=== PATIENT | female | born 1940 | race Caucasian/White ===

== ENCOUNTER 2020-08-07 13:45 | Inpatient (IN) | payer MEDICARE, OTHER, SELFPAY ==
[2020-08-07] VITALS (13 sets, daily range): BP systolic 122–160; BP diastolic 70–88; PULSE 75–101; RESP 16–18; TEMP 36.4–37; O2SAT 90–98; BMI 21.7
--- NOTE | 2020-08-07 13:48 | XRR_ITS ---
PROCEDURE INFORMATION: Exam: XR Left Hip with Pelvis when Performed Exam date and time: 08/07/2020 1:50 PM Age: 79 years old Clinical indication: Injury or trauma; Fall; Blunt trauma (contusions or hematomas); Left; Patient HX: C/O L hip pain after tripping on step; Additional info: Fall/injury TECHNIQUE: Imaging protocol: XR Left hip with pelvis when performed. Views: 2 or 3 views. COMPARISON: No relevant prior studies available. FINDINGS: Bones/joints: There is a subcapital fracture involving the left hip. No acute additional abnormalities seen Soft tissues: Unremarkable. XR/XR hip LT 2-3V wo/w pel* [id number] IMPRESSION: 1. Subcapital fracture left hip 2. Otherwise negative examination
--- NOTE | 2020-08-07 13:49 | XRR_ITS ---
PROCEDURE INFORMATION: Exam: XR Chest, 1 View Exam date and time: 08/07/2020 1:50 PM Age: 79 years old Clinical indication: Injury or trauma; Blunt trauma (contusions or hematomas); Patient HX: Tripped on step falling onto L side; Additional info: Fall TECHNIQUE: Imaging protocol: XR of the chest Views: 1 view. COMPARISON: No relevant prior studies available. FINDINGS: Lungs: Unremarkable. No consolidation. Pleural space: Unremarkable. No pleural effusion. No pneumothorax. Heart/Mediastinum: Unremarkable. No cardiomegaly. Bones/joints: Unremarkable. XR/XR chest 1V portable [id number] IMPRESSION: No acute findings.
--- NOTE | 2020-08-07 13:49 | CTR_ITS ---
PROCEDURE INFORMATION: Exam: CT Head Without Contrast Exam date and time: 08/07/2020 1:59 PM Age: 79 years old Clinical indication: Injury or trauma; Fall; Blunt trauma (contusions or hematomas); Without loss of consciousness; Patient HX: Tripped on step - denies loc or injury to head; Additional info: Fall/injury TECHNIQUE: Imaging protocol: Computed tomography of the head without contrast. Radiation optimization: All CT scans at this facility use at least one of these dose optimization techniques: automated exposure control; mA and/or kV adjustment per patient size (includes targeted exams where dose is matched to clinical indication); or iterative reconstruction. COMPARISON: No relevant prior studies available. RADIATION DOSE METRICS: Total DLP (mGy-cm): 839.69 FINDINGS: Brain: There is no acute intracranial hemorrhage. There is minimal lucency in the cerebral white matter, likely microvascular disease although non-specific. Nielsen white differentiation is intact. There are no extra-axial fluid collections. No evidence of mass. There is no mass effect or midline shift. Cerebral ventricles: The ventricles and sulci are enlarged, consistent with volume loss / atrophy. No hydrocephalus. Bones/joints: No acute fracture. Paranasal sinuses: Visualized sinuses are unremarkable. No fluid levels. Mastoid air cells: No significant mastoid effusion. Orbital cavity: There have been bilateral intraocular lens replacements likely related to cataract surgery. Vasculature: There is vascular calcification. Soft tissues: Unremarkable as visualized. CT/CT head wo con* [id number] IMPRESSION: 1. No evidence of acute intracranial abnormality. No evidence of acute infarction, hemorrhage, or mass. 2. Changes of aging. Radiation Dose CTDIVOL = (mGy): DLP = 839.69 (mGy-cm)
--- NOTE | 2020-08-07 13:54 | ED_ITS ---
HPI - Fall General: Chief Complaint: Fall Stated Complaint: LEFT HIP PAIN S/P FALL Time Seen by Provider: 08/07/20 13:46 Source: patient and EMS Mode of arrival: EMS Limitations: no limitations History of Present Illness: HPI Narrative: Mrs. Richardson is a very nice 78-year-old female who was at home when she tripped and fell landing on her left hip. She did not hit her head and denies any head injury or loss of consciousness. She denies any neck pain or injury. She states all the pain and injury was sustained to the left hip. Patient has been unable to get up and walk and with any movement she has severe pain in her left hip. She denies any distal numbness or weakness to the leg. EMS reports good neurovascular exam on the way here. Patient denies any low back pain or pelvic pain. On the way here the patient became carsick but also received 100 of fentanyl and 4 of Zofran. Patient continues to plate of severe nausea. Patient denies being on any blood thinners but is on Plavix. Associated symptoms-after fall: Denies abdominal pain, chest pain, confusion, difficulty walking, headache(s), hematuria, lightheadedness, neck pain or vertigo Review of Systems Const: Denies: fever(s), chills, body aches, fatigue, malaise or diaphoresis Eyes: Denies: change in vision, blurry vision, photophobia, eye discomfort, eye discharge, eye redness or yellow eyes ENMT: Denies: throat pain, odynophagia, hoarseness, swelling of lips/tongue, ear or mastoid pain, ear discharge, change in hearing or nasal discharge Card: Denies: chest pain, palpitations, irregular heart rhythm, edema, lightheadedness, syncope, pre-syncope, dyspnea on exertion or orthopnea Resp: Denies: dyspnea, productive cough, non-productive cough, wheezing, hemoptysis or chest congestion GI: Reports: nausea; Denies: abdominal pain, vomiting, hematemesis, coffee ground emesis, heartburn, diarrhea, constipation, GI cramping, hematochezia or melena : Denies: flank pain, dysuria, urinary frequency, urinary urgency or hematuria Musc: Reports: extremity pain and joint pain; Denies: neck pain, back pain, extremity swelling, joint swelling, joint redness, joint warmth or joint stiffness Skin/Breast: Denies: rash, pruritus, erythema, skin pain or skin tenderness Neuro: Denies: headache(s), numbness in extremities, weakness in extremities, sensory changes, lack of coordination, difficulty walking, dizziness, vertigo, confusion, Slurred speech present or seizure-like activity Volodymyr/Lymph: Denies: easy bruising, easy bleeding, petechiae, purpura or enlarged lymph nodes All/Imm: Denies: urticaria, throat swelling, tongue swelling, facial swelling or acute wheezing PFSH ED PFSH: Medical History (Updated 08/07/20 @ 15:46 by Nina Cárdenas) Anxiety CAD (coronary artery disease) GERD (gastroesophageal reflux disease) History of NV (myocardial infarction) HTN (hypertension) Hyperlipidemia Hypothyroidism Ischemic cardiomyopathy Surgical History (Updated 08/07/20 @ 14:23 by Nina Cárdenas) S/P angioplasty with stent S/P appendectomy S/P hysterectomy Family History Other Cancer Hypertension Social History Smoking and tobacco status: former smoker Physical Exam Const: COMMON NORMALS: no acute distress, patient oriented x3, no limitations and alert GENERAL APPEARANCE: cooperative HENMT: COMMON NORMALS: normocephalic, atraumatic, external ears normal, EAC's normal and Normal external nose present HEAD & SCALP: normal to inspection, normocephalic and atraumatic FACE & SINUS: normal facial exam and face symmetric NOSE: Normal external nose present and Normal nares present EXTERNAL EAR: Yes external ears normal EXTERNAL AUDITORY CANAL: EAC's normal MOUTH: Normal oral and palatal mucosa present, lip normal and tongue normal Eye: COMMON NORMALS: Equal, round and reactive pupils present and conjunctivae normal GENERAL EYE: appearance normal, both eyes and all related structures ALIGNMENT: Yes alignment normal PERIORBITAL: periorbital findings normal EYELID: eyelids normal CONJUNCTIVA: Yes conjunctivae normal SCLERA: sclerae normal PUPIL: Yes Equal, round and reactive pupils present Neck/C-Spine: COMMON NORMALS: full ROM, no lymphadenopathy, supple, no meningeal signs and no JVD GENERAL: Yes normal visual inspection and Yes trachea midline Chest: COMMONS NORMALS: normal inspection of the chest and normal palpation of entire chest wall Resp: COMMON NORMALS: normal respiratory effort, No retractions, No use of accessory muscles and clear to auscultation bilaterally EFFORT & INSPECTION: Yes able to speak in complete sentences and Yes symmetric chest movement AUSCULTATION: clear to auscultation bilaterally, no crackles, no rales, no rhonchi and no wheezes Cardio: COMMON NORMALS: no JVD, regular rate, regular rhythm, S1 normal heart sound present and S2 normal heart sound present RATE: regular rate RHYTHM: regular rhythm HEART SOUNDS: S1 normal heart sound present, S2 normal heart sound present, no click, no gallops, no murmurs and no rubs GI: COMMON NORMALS: Soft to palpation and No hepatosplenomegaly present PALPATION: Yes Soft to palpation, No Tenderness to palpation present (GI), No Guarding due to palpation present (GI), No Rigid due to palpation, Yes No hepatosplenomegaly present, No Hernia present, No Palpable mass present and No Pulsatile mass present : COMMON NORMALS: Yes no CVA tenderness BLADDER/KIDNEY EXAM: Yes no CVA tenderness EXTERNAL FEMALE EXAM: No Hernia present Back/Pelvis: COMMON NORMALS: no CVA tenderness, thoracic and lumbar spine normal to inspection, no thoracic nor lumbar tenderness and thoraco-lumbar ROM normal Extremity: NARRATIVE EXTREMITY EXAM: Left hip with tenderness to palpation over the lateral aspect. Neurovascular intact distal. Neuro: COMMON NORMALS: patient oriented x3, CN's II-XII intact bilaterally, moves all extremities, no focal motor deficits and no sensory deficits noted SENSORIUM/ORIENTATION: Yes alert MENINGEAL SIGNS: Yes no meningeal signs SPEECH: speech normal Psych: COMMON NORMALS: mental status grossly normal, Normal thought process present, cooperative, normal affect, speech normal and activity/motor behavior normal SPEECH: Yes normal speech THOUGHT PROCESS: Normal thought process present Skin: COMMON NORMALS: no rashes or lesions noted, turgor normal, no jaundice, no petechiae and no mottling GENERAL SKIN EXAM: no rashes or lesions noted and turgor normal Course Vital Signs: Vital signs: Vital Signs Temperature 97.6 F 08/07/20 13:46 Pulse Rate 84 08/07/20 15:06 Respiratory Rate 18 08/07/20 15:06 Blood Pressure 134/87 08/07/20 15:06 Pulse Oximetry 98 08/07/20 15:06 MDM - Fall MDM Narrative: Medical decision making narrative: The case was reviewed with Dr. Oconnor and Dr. Anderson, they will admit and consult respectively. Patient be treated for UTI here. We will bear the hospital and further care be dictated by the inpatient team. Lab Data: Attestation: I reviewed the patient's lab results. Labs: Lab Results 08/07/20 08/07/20 08/07/20 Range/Units 14:27 14:35 14:35 WBC 18.2 H (4.0-10.0) 10^3/ uL RBC 4.15 (4.1-5.3) 10^6/u L Hgb 12.8 (11.5-15.3) g/dL Hct 39.9 (37.0-47.0) % MCV 96.1 (81-99) fL MCH 30.8 (28.0-34.0) pg MCHC 32.1 (30.0-36.0) g/dL RDW 12.5 (12.1-15.1) % Plt Count 221 (130-400) 10^3/c mm MPV 8.9 (7.4-10.4) fL Neut % (Auto) 64.9 % Lymph % (Auto) 30.9 % Briscoe % (Auto) 3.0 % Eos % (Auto) 0.3 % Baso % (Auto) 0.3 % Neut # (Auto) 11.81 H (1.8-7.7) 10^3/u L Lymph # (Auto) 5.6 H (0.8-4.8) 10^3/u L Briscoe # (Auto) 0.6 (0.2-0.9) 10^3/u L Eos # (Auto) 0.1 (0.0-0.8) 10^3/u L Baso # (Auto) 0.1 (0.0-0.1) 10^3/u L Nucleated RBC % (a uto) 0 % Nucleated RBCs # 0.0 /100WBC PT 12.80 (12.1-14.9) SECO NDS INR 0.93 (0.8-1.2) APTT 27.2 (23.9-36.7) SECO NDS Sodium (136-145) mmol/L Potassium (3.5-5.1) mmol/L Chloride (98-107) mmol/L Carbon Dioxide (22-29) mmol/L Anion Gap (5-19) BUN (8-23) mg/dL Creatinine (0.5-0.9) mg/dL GFR Calculation Glucose (65-115) mg/dL Calculated Osmolal ity (285-295) mOsm/k g Calcium (8.5-10.5) mg/dL Total Bilirubin (0.15-1.2) mg/dL AST (0-32) U/L ALT (0-33) U/L Alkaline Phosphata se (35-105) IU/L Total Protein (6.6-8.7) g/dL Albumin (3.5-5.2) g/dL Globulin (1.3-4.6) g/dL Urine Color Yellow (Yellow) Urine Appearance Hazy A (CLEAR) Urine pH 5 (5-7) Ur Specific Gravit y 1.025 (1.005-1.030) Urine Protein Neg (Negative) Urine Glucose (UA) Norm (Normal) Urine Ketones Negative (Negative) Urine Blood Neg (Negative) Urine Nitrate Negative (Negative) Urine Bilirubin 1+ H (Negative) Urine Urobilinogen Norm (Negative) mg/dL Ur Leukocyte Brandy ase Negative (Negative) Urine RBC 0-4 H (0-2) /hpf Urine WBC 15-25 H (0-5) /hpf Ur Squamous Epith Cells None (0-5) /hpf Amorphous Sediment Not Reportable Urine Bacteria 3+ H (NONE) /hpf SARS-CoV-2 Ag (Rap id) (Negative) 08/07/20 08/07/20 Range/Units 14:35 14:47 WBC (4.0-10.0) 10^3/ uL RBC (4.1-5.3) 10^6/u L Hgb (11.5-15.3) g/dL Hct (37.0-47.0) % MCV (81-99) fL MCH (28.0-34.0) pg MCHC (30.0-36.0) g/dL RDW (12.1-15.1) % Plt Count (130-400) 10^3/c mm MPV (7.4-10.4) fL Neut % (Auto) % Lymph % (Auto) % Briscoe % (Auto) % Eos % (Auto) % Baso % (Auto) % Neut # (Auto) (1.8-7.7) 10^3/u L Lymph # (Auto) (0.8-4.8) 10^3/u L Briscoe # (Auto) (0.2-0.9) 10^3/u L Eos # (Auto) (0.0-0.8) 10^3/u L Baso # (Auto) (0.0-0.1) 10^3/u L Nucleated RBC % (a uto) % Nucleated RBCs # /100WBC PT (12.1-14.9) SECO NDS INR (0.8-1.2) APTT (23.9-36.7) SECO NDS Sodium 138 (136-145) mmol/L Potassium 4.2 (3.5-5.1) mmol/L Chloride 101 (98-107) mmol/L Carbon Dioxide 28 (22-29) mmol/L Anion Gap 13.2 (5-19) BUN 20 (8-23) mg/dL Creatinine 1.1 H (0.5-0.9) mg/dL GFR Calculation Not Reportable Glucose 140 H (65-115) mg/dL Calculated Osmolal ity 291 (285-295) mOsm/k g Calcium 9.2 (8.5-10.5) mg/dL Total Bilirubin 0.3 (0.15-1.2) mg/dL AST 17 (0-32) U/L ALT 11 (0-33) U/L Alkaline Phosphata se 105 (35-105) IU/L Total Protein 6.8 (6.6-8.7) g/dL Albumin 4.3 (3.5-5.2) g/dL Globulin 2.5 (1.3-4.6) g/dL Urine Color (Yellow) Urine Appearance (CLEAR) Urine pH (5-7) Ur Specific Gravit y (1.005-1.030) Urine Protein (Negative) Urine Glucose (UA) (Normal) Urine Ketones (Negative) Urine Blood (Negative) Urine Nitrate (Negative) Urine Bilirubin (Negative) Urine Urobilinogen (Negative) mg/dL Ur Leukocyte Brandy ase (Negative) Urine RBC (0-2) /hpf Urine WBC (0-5) /hpf Ur Squamous Epith Cells (0-5) /hpf Amorphous Sediment Urine Bacteria (NONE) /hpf SARS-CoV-2 Ag (Rap id) Negative (Negative) Imaging Data^: XR Pelvis with Left Hip: Attestation: I personally reviewed and interpreted this imaging study as follows: My impression: Left femoral neck fracture CT Head: Radiologist's impression: [address] [place] [address] CT Scan Report Signed Patient: Nalini Richardson Unit #: [id number] : 1940 Acc t#:[id number] Age/Sex: 79 / F ADM Date: 08/07/20 Loc: ER Room/Bed: Attending Dr: Ordering Provider/Ordering MD: Nina Cárdenas DO Date of Service: 08/07/20 Procedure(s): CT head wo con* [id number] Accession Number(s): [id number] Report Number: [id number] PROCEDURE INFORMATION: Exam: CT Head Without Contrast Exam date and time: 08/07/2020 1:59 PM Age: 79 years old Clinical indication: Injury or trauma; Fall; Blunt trauma (contusions or hematomas); Without loss of consciousness; Patient HX: Tripped on step - denies loc or injury to head; Additional info: Fall/injury TECHNIQUE: Imaging protocol: Computed tomography of the head without contrast. Radiation optimization: All CT scans at this facility use at least one of these dose optimization techniques: automated exposure control; mA and/or kV adjustment per patient size (includes targeted exams where dose is matched to clinical indication); or iterative reconstruction. COMPARISON: No relevant prior studies available. RADIATION DOSE METRICS: Total DLP (mGy-cm): 839.69 FINDINGS: Brain: There is no acute intracranial hemorrhage. There is minimal lucency in the cerebral white matter, likely microvascular disease although non-specific. Nielsen white differentiation is intact. There are no extra-axial fluid collections. No evidence of mass. There is no mass effect or midline shift. Cerebral ventricles: The ventricles and sulci are enlarged, consistent with volume loss / atrophy. No hydrocephalus. Bones/joints: No acute fracture. Paranasal sinuses: Visualized sinuses are unremarkable. No fluid levels. Mastoid air cells: No significant mastoid effusion. Orbital cavity: There have been bilateral intraocular lens replacements likely related to cataract surgery. Vasculature: There is vascular calcification. Soft tissues: Unremarkable as visualized. CT/CT head wo con* [id number] IMPRESSION: 1. No evidence of acute intracranial abnormality. No evidence of acute infarction, hemorrhage, or mass. 2. Changes of aging. Radiation Dose CTDIVOL = (mGy): DLP = 839.69 (mGy-cm) Dictated By: Anita George MD Signed By: Anita George MD Signed Date/Time: 08/07/201444 DD/ 43 EKG Data^: EKG 1: Attestation: I personally reviewed and interpreted this EKG as follows: EKG interpretation date: 08/07/20 EKG interpretation time: 14:15 Interpretation: Normal sinus rhythm at 76 beats a minute, normal axis, no blocks, normal intervals, no acute ST-T wave changes. Discharge Plan Discharge Patient Disposition: Admitted As Inpatient Clinical Impression: Closed hip fracture, Acute UTI Condition: Stable Prescriptions: No Action dipyridamole 75 mg tablet 75 mg PO BID RF: 0 clopidogrel [Plavix] 75 mg tablet 75 mg PO DAILY RF: 0 nitroglycerin [Nitrostat] 0.4 mg tablet, sublingual 0.4 mg SUBLINGUAL Q5M PRN (Reason: Chest Pain) RF: 0 meclizine 25 mg tablet 25 mg PO DAILY PRN (Reason: Dizziness) RF: 0 alprazolam [Xanax] 0.5 mg tablet 0.5 mg PO QID PRN (Reason: Anxiety) RF: 0 amitriptyline 50 mg tablet 50 mg PO DAILY RF: 0 simvastatin 40 mg tablet 40 mg PO DAILY 90 Days Qty: 90 RF: 3 metoprolol tartrate 25 mg tablet See Rx Instructions PO .COMPLEX Qty: 135 RF: 3 Referrals: Lobo,KIP Lynch [Primary Care Provider] - Coding Level of Care Code ED Director Of Cardiology Service Line for Chg Fwd Exam Comprehensive
--- NOTE | 2020-08-07 13:57 | ECG_ITS ---
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 Measurements Intervals [place] Rate: 76 P: 81 [place]: 139 QRS: 75 QRSD: 65 T: 70 QT: 384 QTc: 432 Interpretive Statements SINUS RHYTHM LOW QRS VOLTAGE IN PRECORDIAL LEADS [QRS DEFLECTION < 1.0 mV IN CHEST LEADS] No previous ECG available for comparison Electronically Signed On 08-07-2020 16:08:44 CDT by Romeo Comer M.D. [id number]
[2020-08-07] MEDS: sodium chloride 0.9% 1,000 ML 100 ML IV (14:38)
[2020-08-07] MEDS: metoclopramide 5 mg/mL SDV 2 mL 10 MG IV (14:38)
[2020-08-07] MEDS: morphine 4 mg/mL SDV 1 mL IVP (14:55)
[2020-08-07 14:59] LABS: Basophils # 0.1 10^3/uL (0.0-0.1); Basophils % 0.3 %; Eosinophils # 0.1 10^3/uL (0.0-0.8); Eosinophils % 0.3 %; Hematocrit 39.9 % (37.0-47.0); Hemoglobin 12.8 g/dL (11.5-15.3); Lymphocytes # 5.6 10^3/uL (0.8-4.8); Lymphocytes % 30.9 %; Mean Corpuscular HGB Conc 32.1 g/dL (30.0-36.0); Mean Corpuscular Hemoglobin 30.8 pg (28.0-34.0); Mean Corpuscular Volume 96.1 fL (81-99); Mean Platelet Volume 8.9 fL (7.4-10.4); Monocytes # 0.6 10^3/uL (0.2-0.9); Neutrophils # 11.81 10^3/uL (1.8-7.7); Neutrophils % 64.9 %; Nucleated Red Blood Cells % 0 %; Platelet Count 221 10^3/cmm (130-400); Red Blood Count 4.15 10^6/uL (4.1-5.3); Red Cell Distribution Width 12.5 % (12.1-15.1); White Blood Count 18.2 10^3/uL (4.0-10.0)
[2020-08-07 15:00] LABS: Add Urine Microscopic? YES; Bilirubin Urine 1+ (Negative); Blood Urine Neg (Negative); Glucose Urine UA Norm (Normal); Ketones Urine Negative (Negative); Leukocyte Esterase Urine Negative (Negative); Nitrate Urine Negative (Negative); Protein Urine Neg (Negative); RBC Urine 0-4 /hpf (0-2); Specific Gravity, Urine 1.025 (1.005-1.030); Urine Appearance Hazy (CLEAR); Urine Color Yellow (Yellow); Urobilinogen Urine Norm (Negative); WBC Urine 15-25 /hpf (0-5); pH Urine 5 (5-7)
[2020-08-07 15:01] LABS: Add Urine Culture? Yes; Bacteria Urine 3+ /hpf
[2020-08-07 15:11] LABS: INR 0.93 (0.8-1.2)
[2020-08-07 15:12] LABS: Partial Thromboplastin Time 27.2 SECONDS (23.9-36.7)
[2020-08-07 15:18] LABS: Alanine Aminotransferase 11 U/L (0-33); Albumin Level 4.3 g/dL (3.5-5.2); Alkaline Phosphatase 105 IU/L (35-105); Anion Gap 13.2 (5-19); Aspartate Amino Transferase 17 U/L (0-32); Blood Urea Nitrogen 20 mg/dL (8-23); Calcium 9.2 mg/dL (8.5-10.5); Carbon Dioxide 28 mmol/L (22-29); Chloride 101 mmol/L (98-107); Globulin 2.5 g/dL (1.3-4.6); Glucose 140 mg/dL (65-115); Osmolality Calculated 291 mOsm/kg (285-295); Potassium 4.2 mmol/L (3.5-5.1); Sodium 138 mmol/L (136-145); Total Bilirubin 0.3 mg/dL (0.15-1.2); Total Protein 6.8 g/dL (6.6-8.7)
[2020-08-07] MEDS: cefTRIAXone 1,000 MG in sodium chloride 0.9% (plus) 50 ML 100 MG IV (15:22)
[2020-08-07 15:31] LABS: SARS Covid-2 Antigen Negative (Negative)
[2020-08-07 15:34] LABS: Slide Review Slide Review Perform
[2020-08-07] MEDS: HYDROmorphone 1 mg/mL INJ 1 mL 0.5 MG IVP (16:20)
--- NOTE | 2020-08-07 16:28 | PM.HP ---
Providers/Chief Complaint Primary Care Provider: Cris Lobo APN Chief Complaint: LEFT HIP PAIN S/P FALL History of Present Illness Nalini Richardson is a 79 year old female with past medical history of hypothyroidism, CAD post PCI to LAD in 2013, hypertension, ischemic cardiomyopathy with EF of 64% normal diastolic dysfunction moderate tricuspid regurgitation in 2015, with recent history of pneumonia in October since then she has been on nightly 2 L oxygen and daily nebulizations presented to the ER today after mechanical fall after she tripped in the stairs and was found to have subcapital fracture of left hip. Prior to the fall she denied having any dizziness, nausea, vomiting, palpitation, aura. She denies of having any chest pain, difficulty in breathing both at rest or exertion recently. Denies of having any fever, flulike symptoms, known exposure to COVID-19. Patient is fairly active at present. Her white count of 18.2, hemoglobin of 12.8, platelet count of 221, INR of 0.9, sodium of 138, potassium of 4.2, BUN of 20, creatinine of 1.1, AST/ALT of 17/11, UA negative for nitrite negative for leuk esterase with rapid Covid antigen negative with CT hip suggestive of subcapital fracture of left hip, CT head suggestive of age-related changes without evidence of acute intracranial abnormality and no acute findings on chest x-ray. Review of Systems General: Reports: 10 or more systems reviewed and unremarkable except in HPI and below Const: Denies: fever(s), chills, body aches, change in appetite, change in weight, malaise, night sweats, diaphoresis, change in sleep pattern, daytime sleepiness or snoring Eyes: Denies: change in vision, blurry vision, photophobia, eye discomfort or eye discharge ENMT: Denies: throat pain, enlarged tonsils, hoarseness, mouth pain, oral sores, dry mouth, tinnitus, nasal congestion or post nasal drip Card: Denies: chest pain, palpitations, irregular heart rhythm, edema, swelling of feet/ankles, lightheadedness, syncope, pre-syncope, dyspnea on exertion, orthopnea, leg pain with exertion or acrocyanosis Resp: Denies: dyspnea, productive cough, non-productive cough, wheezing, stridor, pain on inspiration, change in phlegm color, hemoptysis or chest congestion GI: Denies: abdominal pain, nausea, vomiting, hematemesis, coffee ground emesis, dysphagia, heartburn, diarrhea, constipation, bloating, GI cramping, change in bowel habits, pain on defecation, hematochezia or melena : Denies: flank pain, dysuria, urinary frequency, urinary urgency, urinary hesitancy, nocturia or hematuria Musc: Denies: neck pain, back pain, extremity pain, joint pain, joint swelling, joint redness, joint stiffness or limited range of motion Neuro: Denies: headache(s), numbness in extremities, weakness in extremities, sensory changes, lack of coordination, difficulty walking, frequent falls, dizziness, vertigo, confusion, Slurred speech present, difficulty communicating thoughts or seizure-like activity Psych: Denies: anxiety, depression, mood swings, panic attacks, hopelessness or irritability Endo: Denies: polyuria, polydipsia, tired all the time, cold intolerance, excessive sweating, flushing or heat intolerance Volodymyr/Lymph: Denies: easy bruising or easy bleeding All/Imm: Denies: tongue swelling, facial swelling or acute wheezing Medications/Allergies Home Medications Medication Instructions Recorded Confirmed Last Taken Type alprazolam 0.5 mg tablet 0.5 mg PO QID PRN tab 02/09/20 08/07/20 Unknown History amitriptyline 50 mg tablet 50 mg PO DAILY 02/09/20 08/07/20 08/06/20 History clopidogrel 75 mg tablet 75 mg PO DAILY 02/09/20 08/07/20 08/07/20 History dipyridamole 75 mg tablet 75 mg PO BID tab 02/09/20 08/07/20 08/07/20 History meclizine 25 mg tablet 25 mg PO DAILY PRN 02/09/20 08/07/20 08/07/20 History nitroglycerin 0.4 mg sublingual 0.4 mg SUBLINGUAL Q5M PRN 02/09/20 08/07/20 Unknown History tablet simvastatin 40 mg tablet 40 mg PO DAILY 90 Days #90 tab 03/30/20 08/07/20 08/06/20 Rx metoprolol tartrate 25 mg tablet See Rx Instructions PO .COMPLEX 04/28/20 08/07/20 08/07/20 Rx #135 tab Allergies Allergy/AdvReac Type Severity Reaction Status Date / Time aspirin Allergy Unknown Unknown Verified 08/07/20 13:53 lisinopril Allergy Unknown unknown Verified 08/07/20 13:53 PFSH Acute PFSH: Medical History Anxiety CAD (coronary artery disease) Post PCI to LAD in 2013 GERD (gastroesophageal reflux disease) History of [place] (myocardial infarction) HTN (hypertension) Hyperlipidemia Hypothyroidism Ischemic cardiomyopathy Echocardiogram from 2016 shows an EF of 64% without diastolic dysfunction, moderate TR Surgical History S/P angioplasty with stent S/P appendectomy S/P hysterectomy Family History Other Cancer Hypertension Social History (Reviewed 08/07/20 @ 17: by Conor Leyva MD) Smoking and tobacco status: former smoker Alcohol intake: never Substance/Drug Use: never Lives independently: Yes Housing: House Marital status: / Vitals/I&O/Wt Last Vital Signs Temp 97.6 F 08/07/20 13:46 Pulse 84 08/07/20 15:06 Resp 18 08/07/20 15:06 BP 134/87 08/07/20 15:06 Pulse Ox 98 08/07/20 15:06 08/07/20 08/07/20 08/07/20 06:59 14:59 22:59 Intake Total 50 / 50 Balance 50 / 50 Weight last 48 hrs Weight 61.235 kg Physical Exam Narrative: EXAM NARRATIVE: General: No acute distress, AO x3, slightly groggy from pain medications, frail HEENT: PERRLA, pupils bilaterally equal and reactive Chest: Normal vesicular breath sounds, no added sounds, equal good air entry bilaterally CVS: S1-S2 regular, no murmurs, no tachycardia, no gallops, no rubs Abdomen: Soft, nontender, no organomegaly, bowel sounds present Neuro: No focal deficits, no facial deformity, AO x3, 5 x 5 in both the upper arms, did not check the lower limbs because of pain Urinary Catheter Management^: Wright: Cath Placed During This Visit: yes Reason for Continuing Indwelling Catheter: Required Immobilization for Trauma or Surgery or Anesthesia Urinary Catheter Date of Insertion: 08/07/20 Urinary Catheter Time of Insertion: 15:05 Data : 08/07/20 14:35 08/07/20 14:35 A&P Assessment and plan (1) Closed hip fracture: Status: Acute Qualifiers: Encounter type: initial encounter Laterality: left Qualified Code(s): S72.002A - Fracture of unspecified part of neck of left femur, initial encounter for closed fracture (2) Hypothyroidism: Status: Acute (3) Anxiety: Status: Acute (4) CAD (coronary artery disease): Status: Acute (5) Ischemic cardiomyopathy: Status: Acute (6) HTN (hypertension): Status: Acute (7) RICH (acute kidney injury): Status: Acute Additional A&P Information Closed fracture: Secondary to mechanical fall. Dr. Anderson has been consulted from the ER. Physical therapy, anticoagulation, perioperative antibiotics as per Dr. Anderson. For now start patient on morphine 2 mg IV every 6 hours as needed along with [place] 5 every 6 hours as needed for pain. Patient was given ceftriaxone in the ER. Currently patient does not have any signs of infection other than mild leukocytosis which could be reactionary. Check procalcitonin, proBNP, blood cultures. UA negative for any infection. For now will monitor and if patient develops any fever will start her on antibiotics. Incentive spirometry, flutter valve. Bedrest for now. PT/OT evaluation post surgery. RICH: Baseline creatinine from labs in 2014 0.9. 1.1 today. Most likely secondary dehydration. Medical reconciliation done for nephrotoxic drugs. Gentle hydration for now and will continue to monitor BMP daily. CAD/post PCI to LAD in 2013: Severely allergic to aspirin. Patient takes Plavix and aspirin at all at home. We will hold off both for now in view of possible OR tomorrow. Check lipid panel. For now continue with home dose of statin and metoprolol. Hypertension: Goal blood pressure less than 140/90 mmHg. Continue with home dose of metoprolol. Ischemic cardiomyopathy: EF 64% from echocardiogram in 2016. We will repeat echocardiogram. Normal saline 50 cc/h. We will continue to monitor for fluid overload. Check vitamin D, TSH, iron panel, lipid panel, HbA1c, MRSA swab. Other chronic medication like amitriptyline, meclizine as needed. CODE STATUS: Discussed with patient and patient's son at bedside. Patient states she is a DNR/DNI. Did discuss with the patient that she will be intubated for the procedure and she is okay with that. Cardiac diet for now. N.p.o. after midnight for possible OR. Foot pumps for DVT prophylaxis. We will hold off on pharmacological prophylaxis right now in view of possible OR tomorrow. Attestations Medical Necessity Statement*: Patient will require admission for more than 2 midnights for subcapital fracture of hip post mechanical fall. Time Spent in Patient Care: Greater than 35 minutes (>than 50% of time spent in counselling and/or direct pt care on unit). Coding Level of Care Code Acute Home Appliance Technician for Lakesha Payned Diagnoses Closed hip fracture S72.002A Encounter type: initial encounter Laterality: left Hypothyroidism E03.9 Anxiety F41.9 CAD (coronary artery disease) I25.10 Ischemic cardiomyopathy I25.5 HTN (hypertension) I10 RICH (acute kidney injury) N17.9
[2020-08-07 17:10] LABS: NT Pro B Type Natriuretic Pept 50 pg/mL (0-450); Procalcitonin 0.05 ng/mL (0-0.5)
[2020-08-07] MEDS: sodium chloride 0.9% 1,000 ML 50 ML IV (17:11)
[2020-08-07 17:27] LABS: Iron 57 ug/dL (37-145); Percent Saturation 19.1 % (20-50); Total Iron Binding Capacity 297 mcg/dl; Unsaturated Iron Binding 240 ug/dL (112-347)
--- NOTE | 2020-08-07 17:27 | PC.PT ---
Physical therapy evaluation on hold awaiting surgical repair, and further orders at that time.
[2020-08-07] MEDS: metoprolol tartrate 25 mg Tablet PO (17:52)
[2020-08-07] MEDS: HYDROcodone-acetaminophen 5-325 mg Tablet 1 TAB PO (17:52)
[2020-08-07] MEDS: famotidine 20 mg/2 mL INJ IVP (17:53)
[2020-08-07] MEDS: ondansetron 2 mg/ML SDV 2 mL 4 MG IVP (17:53)
[2020-08-07] MEDS: pneumococcal (23 valent) SDV 0.5 mL IM (17:53)
[2020-08-07 19:06] LABS: 25 Hydroxy Vitamin D 16 ng/mL (30-100)
--- NOTE | 2020-08-07 21:28 | P.CONIM_ITS ---
Providers/Reason For Consult Consulting Physican/Specialty*: Marcelo Anderson MD, orthopedic surgery Reason for Consult*: Left femoral neck fracture Attending Physician: Conor Leyva MD Primary Care Provider: Cris Lobo APN History of Present Illness History of Present Illness Nalini Richardson is a 79 year old female who lives at home alone. She apparently missed a step as she was stepping out of her house falling landing on her left hip with immediate pain. She ultimately was able to call family and EMS was called. She was brought to our emergency room where radiographs revealed a displaced left femoral neck fracture. She denies any previous hip pain. She denies any other extremity pain. Meds/Allergies Home Medications and Allergies Home Medications Medication Instructions Recorded Confirmed Last Taken Type alprazolam 0.5 mg tablet 0.5 mg PO QID PRN tab 02/09/20 08/07/20 Unknown History amitriptyline 50 mg tablet 50 mg PO DAILY 02/09/20 08/07/20 08/06/20 History clopidogrel 75 mg tablet 75 mg PO DAILY 02/09/20 08/07/20 08/07/20 History dipyridamole 75 mg tablet 75 mg PO BID tab 02/09/20 08/07/20 08/07/20 History meclizine 25 mg tablet 25 mg PO DAILY PRN 02/09/20 08/07/20 08/07/20 History nitroglycerin 0.4 mg sublingual 0.4 mg SUBLINGUAL Q5M PRN 02/09/20 08/07/20 Unknown History tablet simvastatin 40 mg tablet 40 mg PO DAILY 90 Days #90 tab 03/30/20 08/07/20 08/06/20 Rx metoprolol tartrate 25 mg tablet See Rx Instructions PO .COMPLEX 04/28/20 08/07/20 08/07/20 Rx #135 tab Allergies Allergy/AdvReac Type Severity Reaction Status Date / Time aspirin Allergy Unknown Unknown Verified 08/07/20 13:53 lisinopril Allergy Unknown unknown Verified 08/07/20 13:53 Current Medications Current Medications Generic Name Dose Route Start Last Admin Trade Name Freq PRN Reason Stop Dose Admin Hydrocodone Bitart/Acetaminophen 1 tab 08/07/20 17:03 08/07/20 17:52 [place] 5-325 Mg PO 1 tab Q8H PRN Administration MODERATE TO SEVERE PAIN Famotidine 20 mg 10/17/20 18:00 08/07/20 17:53 Pepcid Inj IVP 20 mg Q12H MAUDE Administration Sodium Chloride 1,000 mls @ 50 mls/hr 08/07/20 17:03 08/07/20 17:11 Sodium Chloride 0.9% IV 50 mls/hr .Q20H MAUDE Administration Metoprolol Tartrate 25 mg 08/07/20 18:00 08/07/20 17:52 Lopressor PO 25 mg QPM MAUDE Administration Ondansetron HCl 4 mg 08/07/20 17:03 08/07/20 17:53 Zofran IVP 4 mg Q6H PRN Administration NAUSEA AND VOMITING PFSH Acute PFSH: Medical History Anxiety CAD (coronary artery disease) Post PCI to LAD in 2013 GERD (gastroesophageal reflux disease) History of [place] (myocardial infarction) HTN (hypertension) Hyperlipidemia Hypothyroidism Ischemic cardiomyopathy Echocardiogram from 2016 shows an EF of 64% without diastolic dysfunction, moderate TR Surgical History S/P angioplasty with stent S/P appendectomy S/P hysterectomy Family History Other Cancer Hypertension Social History Smoking and tobacco status: former smoker Alcohol intake: never Substance/Drug Use: never Lives independently: Yes Housing: House Marital status: / Vitals/I&O/Wt Last Vital Signs Temp 97.8 F 08/07/20 19:14 Pulse 99 08/07/20 20:02 Resp 16 08/07/20 19:58 BP 144/84 08/07/20 19:14 Pulse Ox 95 08/07/20 19:58 08/07/20 08/07/20 08/07/20 06:59 14:59 22:59 Intake Total 290 / 290 Balance 290 / 290 Weight last 48 hrs Weight 135 lb Physical Exam Narrative: EXAM NARRATIVE: The patient is a elderly female supine in bed. She answers questions appropriately. She seems to be a reliable historian. She has shortening and external rotation of the left hip. She has pain with any motion of the left hip. She has a palpable left dorsalis pedis pulse. She flexes and extends her ankles and toes on the left without motor deficits. She has no pain with palpation or motion of her upper extremities or right lower extremity. Urinary Catheter Management^: Wright: Cath Placed During This Visit: yes Reason for Continuing Indwelling Catheter: Required Immobilization for Trauma or Surgery or Anesthesia Urinary Catheter Date of Insertion: 08/07/20 Urinary Catheter Time of Insertion: 15:05 Data Imaging^: Xray Ortho: My impression: Radiographs are reviewed left hip showing a displaced left femoral neck fracture A&P Assessment and plan (1) Left displaced femoral neck fracture: I discussed options with the patient and family. I told them possible treatments for displaced femoral neck fracture would include nonoperative treatment, open reduction internal fixation, or hemiarthroplasty. I told them without treatment the patient would experience ongoing of pain that would limit mobility. This would require pain medications and place her at medical risks due to prolonged periods of bed rest. I discussed the possibility of open reduction internal fixation with pins. I warned them that for displaced fractures of the risk of nonunion and malunion is exceptionally high. In addition there is a high likelihood that the blood applied to the femoral head has been disrupted and that even with successful stabilization of the fracture the femoral head will go on to . I finally discussed the possibility of hemiarthroplasty. I think this would give the patient the greatest chance of being immediately mobilized. I discussed risk of a bleeding and a possible need for blood products. I discussed risk of deep venous thromboses and pulmonary emboli and the need for anticoagulation. I discussed the use of the TXA that may be utilized to diminish blood loss. I discussed risk of component failure and loosening that could require revision. I discussed the risk of dislocation and a bipolar arthroplasty which is quite unlikely. After a long discussion of options they agree to hemiarthroplasty of the hip. I told him ultimately the patient will likely require snf placement. She has a son that lives nearby but is not certain that he will be available to take care of her. We will proceed with a left bipolar hip arthroplasty on 08/09/2020 Status: Acute Coding Level of Care Code Acute Newspaper Distributor Supervisor for Lakesha Barry Diagnoses Left displaced femoral neck fracture S72.002A
[2020-08-07 22:48] LABS: Free T4 Free Thyroxine 1.07 ng/dL (0.82-1.77); T3 Free 3.2 PG/ML (2.0-4.4)
[2020-08-07] MEDS: morphine 4 mg/mL SDV 1 mL 2 MG IVP (23:09)
[2020-08-08] VITALS (13 sets, daily range): BP systolic 112–163; BP diastolic 69–98; PULSE 71–98; RESP 16–20; TEMP 36.6–37.5; O2SAT 89–94
[2020-08-08] MEDS: ipratropium-albuterol 3 mL Neb INHALATION ×5 (02:17→20:35)
[2020-08-08] MEDS: HYDROcodone-acetaminophen 5-325 mg Tablet 1 TAB PO ×2 (02:24→13:09)
[2020-08-08 05:56] LABS: Basophils % 0.2 %; Hematocrit 36.7 % (37.0-47.0); Hemoglobin 11.4 g/dL (11.5-15.3); Lymphocytes # 3.7 10^3/uL (0.8-4.8); Lymphocytes % 28.5 %; Mean Corpuscular HGB Conc 31.1 g/dL (30.0-36.0); Mean Corpuscular Hemoglobin 30.7 pg (28.0-34.0); Mean Corpuscular Volume 98.9 fL (81-99); Monocytes # 0.6 10^3/uL (0.2-0.9); Monocytes % 4.7 %; Neutrophils # 8.67 10^3/uL (1.8-7.7); Neutrophils % 66.3 %; Nucleated Red Blood Cells % 0 %; Platelet Count 190 10^3/cmm (130-400); Red Blood Count 3.71 10^6/uL (4.1-5.3); Red Cell Distribution Width 12.6 % (12.1-15.1); White Blood Count 13.1 10^3/uL (4.0-10.0)
[2020-08-08 06:19] LABS: INR 1.01 (0.8-1.2)
[2020-08-08 06:32] LABS: Alanine Aminotransferase 10 U/L (0-33); Albumin Level 3.8 g/dL (3.5-5.2); Alkaline Phosphatase 87 IU/L (35-105); Anion Gap 13.9 (5-19); Aspartate Amino Transferase 19 U/L (0-32); Blood Urea Nitrogen 20 mg/dL (8-23); Calcium 8.5 mg/dL (8.5-10.5); Carbon Dioxide 22 mmol/L (22-29); Chloride 102 mmol/L (98-107); Globulin 2.3 g/dL (1.3-4.6); Glucose 125 mg/dL (65-115); Osmolality Calculated 282 mOsm/kg (285-295); Potassium 3.9 mmol/L (3.5-5.1); Sodium 134 mmol/L (136-145); Total Bilirubin 0.4 mg/dL (0.15-1.2); Total Protein 6.1 g/dL (6.6-8.7)
[2020-08-08] MEDS: metoprolol tartrate 25 mg Tablet 12.5 MG PO (06:41)
[2020-08-08] MEDS: atorvastatin 40 mg Tablet 10 MG PO (09:32)
[2020-08-08] MEDS: ferrous sulfate EC 325 mg Tablet PO ×2 (09:33→17:06)
[2020-08-08] MEDS: levothyroxine 25 mcg Tablet PO (09:33)
[2020-08-08] MEDS: famotidine 20 mg/2 mL INJ IVP ×2 (09:34→19:28)
[2020-08-08] MEDS: ergocalciferol (vitamin D2) 50,000 Unit Capsule 50000 UNIT PO (13:09)
--- NOTE | 2020-08-08 16:08 | P.PN_ITS ---
Subjective Subjective: Interval history: No acute events overnight. Overnight pain has remained stable. On examination patient sitting comfortably in bed having her lunch. She is concerned that her surgery is scheduled for tomorrow she states she still having some pain. She denies of having any nausea, vomiting, headache. Has remained hemodynamically stable. Vitals/I&O/Wt Last Vital Signs Temp 98.3 F 08/08/20 12:00 Pulse 89 08/08/20 12:00 Resp 18 08/08/20 12:00 BP 112/69 08/08/20 12:00 Pulse Ox 89 L 08/08/20 09:57 08/08/20 08/08/20 08/08/20 06:59 14:59 22:59 Output Total 600 / 600 900 / 900 Balance -600 / -310 -900 / -900 Weight last 48 hrs Weight 66.224 kg Weight 61.235 kg Physical Exam Narrative: EXAM NARRATIVE: General: No acute distress, AO x3, slightly groggy from pain medications, frail HEENT: PERRLA, pupils bilaterally equal and reactive Chest: Normal vesicular breath sounds, no added sounds, equal good air entry bilaterally CVS: S1-S2 regular, no murmurs, no tachycardia, no gallops, no rubs Abdomen: Soft, nontender, no organomegaly, bowel sounds present Neuro: No focal deficits, no facial deformity, AO x3, 5 x 5 in both the upper arms, did not check the lower limbs because of pain Urinary Catheter Management^: Wright: Cath Placed During This Visit: yes Reason for Continuing Indwelling Catheter: Perioperative Use in Selected Surgeries Urinary Catheter Date of Insertion: 08/07/20 Urinary Catheter Time of Insertion: 15:05 Data : 08/08/20 04:29 08/08/20 04:29 Micro: Microbiology 08/07/20 17:45 MRSA Culture - Final Nose 08/07/20 14:27 Urine Culture - Preliminary Urine,Clean Catch Gram Negative Rods 08/07/20 22:05 Blood Culture - Preliminary Blood SPECIMEN COLLECTED 08/07/20 22:00 Blood Culture - Preliminary Blood SPECIMEN COLLECTED A&P Assessment and plan (1) Closed hip fracture: Status: Deleted Qualifiers: Encounter type: initial encounter Laterality: left Qualified Code(s): S72.002A - Fracture of unspecified part of neck of left femur, initial encounter for closed fracture (2) Hypothyroidism: Status: Acute (3) Anxiety: Status: Acute (4) CAD (coronary artery disease): Status: Acute (5) Ischemic cardiomyopathy: Status: Acute (6) HTN (hypertension): Status: Acute (7) RICH (acute kidney injury): Status: Acute Additional A&P Information Closed subcapital fracture of left hip: Secondary to mechanical fall. Plan for OR on August 09. N.p.o. after midnight. Physical therapy, anticoagulation, perioperative antibiotics as per Dr. Anderson. For now start patient on morphine 2 mg IV every 6 hours as needed along with [place] 5 every 6 hours as needed for pain. Patient was given ceftriaxone in the ER. Currently patient does not have any signs of infection other than mild leukocytosis which could be reactionary. Patient has not had any fever. Procalcitonin negative. UA negative for any infection. For now will monitor and if patient develops any fever will start her on antibiotics. Incentive spirometry, flutter valve. Bedrest for now. PT/OT evaluation post surgery. RICH: Resolved. Baseline creatinine from labs in 2014 0.9. Most likely secondary dehydration. Medical reconciliation done for nephrotoxic drugs. Gentle hydration for now and will continue to monitor BMP daily. CAD/post PCI to LAD in 2013: Severely allergic to aspirin. Patient takes Plavix and dipyrimadol at all at home. We will hold off both for now in view of possible OR tomorrow. Check lipid panel. For now continue with home dose of statin and metoprolol. Hypertension: Goal blood pressure less than 140/90 mmHg. Continue with home dose of metoprolol. Ischemic cardiomyopathy: EF 64% from echocardiogram in 2015. We will repeat echocardiogram. Vitamin D levels no so we will start her on vitamin D 50,000 units monthly. Started on iron supplementation orally. TSH high at more than 10 with normal free T3-T4. Given the history of cardiac disease we will start her on levothyroxine 25 mcg daily for now. Patient will need to repeat thyroid panel in 1 month. Other chronic medication like amitriptyline, meclizine as needed. CODE STATUS: Discussed with patient and patient's son at bedside. Patient states she is a DNR/DNI. Did discuss with the patient that she will be intubated for the procedure and she is okay with that. Cardiac diet for now. N.p.o. after midnight for possible OR. Foot pumps for DVT prophylaxis. We will hold off on pharmacological prophylaxis right now in view of possible OR tomorrow. Attestations Medical Necessity Statement*: Patient needs further hospitalization for manag ement of hip fracture. Time Spent in Patient Care: Greater than 35 minutes (>than 50% of time spent in counselling and/or direct pt care on unit) . Coding Level of Care Code Acute Forging Press Setter Up for Lakesha Payned Diagnoses Closed hip fracture S72.002A Encounter type: initial encounter Laterality: left Hypothyroidism E03.9 Anxiety F41.9 CAD (coronary artery disease) I25.10 Ischemic cardiomyopathy I25.5 HTN (hypertension) I10 RICH (acute kidney injury) N17.9
[2020-08-08] MEDS: metoprolol tartrate 25 mg Tablet PO (17:06)
[2020-08-08] MEDS: morphine 4 mg/mL SDV 1 mL 2 MG IVP ×2 (17:13→22:21)
--- NOTE | 2020-08-08 22:57 | PC.NURSE ---
SANDERS UPON ENTERING PATIENTS ROOM, PT WAS PULLING AT IV AND NURSE OBSERVED THAT PT SANDERS WAS REMOVED, LYING IN BED. NO TRAUMA NOTED.
[2020-08-09] VITALS (21 sets, daily range): BP systolic 96–157; BP diastolic 55–96; PULSE 80–116; RESP 16–30; TEMP 36.6–37.6; O2SAT 90–98; BMI 23.6
[2020-08-09] MEDS: ipratropium-albuterol 3 mL Neb INHALATION ×3 (02:31→20:04)
--- NOTE | 2020-08-09 02:42 | PC.NURSE ---
THIS NURSE INSERTED A 14 FR SANDERS CATHETER. 200ML OF URINE WAS RETURNED. PT TOLERATED PROCEDURE FAIR.
[2020-08-09 05:47] LABS: Basophils % 0.2 %; Eosinophils % 0.1 %; Hematocrit 38.2 % (37.0-47.0); Hemoglobin 12.3 g/dL (11.5-15.3); Lymphocytes # 3.4 10^3/uL (0.8-4.8); Lymphocytes % 24.5 %; Mean Corpuscular HGB Conc 32.2 g/dL (30.0-36.0); Mean Corpuscular Hemoglobin 30.7 pg (28.0-34.0); Mean Corpuscular Volume 95.3 fL (81-99); Mean Platelet Volume 8.6 fL (7.4-10.4); Monocytes # 0.7 10^3/uL (0.2-0.9); Neutrophils # 9.66 10^3/uL (1.8-7.7); Neutrophils % 69.8 %; Nucleated Red Blood Cells % 0 %; Platelet Count 176 10^3/cmm (130-400); Red Blood Count 4.01 10^6/uL (4.1-5.3); Red Cell Distribution Width 12.4 % (12.1-15.1); White Blood Count 13.9 10^3/uL (4.0-10.0)
[2020-08-09] MEDS: metoprolol tartrate 25 mg Tablet 12.5 MG PO (06:11)
[2020-08-09 06:13] LABS: Alanine Aminotransferase 10 U/L (0-33); Albumin Level 3.6 g/dL (3.5-5.2); Alkaline Phosphatase 86 IU/L (35-105); Anion Gap 16.4 (5-19); Aspartate Amino Transferase 23 U/L (0-32); Blood Urea Nitrogen 15 mg/dL (8-23); Calcium 8.8 mg/dL (8.5-10.5); Carbon Dioxide 20 mmol/L (22-29); Chloride 101 mmol/L (98-107); Chol HDL Ratio 2.29 mg/dL (0.0-4.40); Cholesterol 135 mg/dL (0-200); Globulin 2.7 g/dL (1.3-4.6); Glucose 113 mg/dL (65-115); HDL Cholesterol 59 mg/dL (60-100); LDL Cholesterol Calculated 63 mg/dL (50-129); Osmolality Calculated 280 mOsm/kg (285-295); Potassium 3.4 mmol/L (3.5-5.1); Sodium 134 mmol/L (136-145); Total Bilirubin 0.6 mg/dL (0.15-1.2); Total Protein 6.3 g/dL (6.6-8.7); Triglycerides 64 mg/dL (0-150); VLDL Cholestrol Calculation 13 mg/dL (0-30)
[2020-08-09 06:25] LABS: Estmated Average Glucose 111; Hemoglobin A1C 5.5 % (4.0-6.0)
[2020-08-09] MEDS: atorvastatin 40 mg Tablet 10 MG PO (09:15)
[2020-08-09] MEDS: levothyroxine 25 mcg Tablet PO (09:16)
[2020-08-09] MEDS: ferrous sulfate EC 325 mg Tablet PO ×2 (09:16→17:27)
[2020-08-09] MEDS: famotidine 20 mg/2 mL INJ IVP ×2 (09:19→20:12)
[2020-08-09] MEDS: HYDROcodone-acetaminophen 5-325 mg Tablet 1 TAB PO ×2 (09:23→16:21)
--- NOTE | 2020-08-09 09:58 | PC.CHAP ---
Pastoral Care Encounter/Spiritual Assessment Type of Contact [] Declined filter tank tender helper visit [] Patient/Family/Request visit [] Outpatient visit [] Follow-up visit [] Physician referral [] Code/Alert [x] Routine visit [] Staff referral [] Actively dying [] Patient sleeping [] Family support [] [] Out of room [] Palliative care [] [] Receiving care in room [] Pre-surgical visit [] Trauma [] Long length of stay [] ICU visit [] Other: Relational/Emotional Strength [] Patient feels connected with others/family/visitors/staff [] Distress [] Loneliness/isolation [] Abandonment Spirituality of Patient [] Person of Capri [] Attends Denominational of their Capri [] Believes in Prayer [] Reads Bible or Mormonism materials [] There are Spiritual issues to be addressed Jewel Hole Cornerer Interventions [x] Prayer [x] Active listening [x] Non-anxious presence [x] Spiritual/emotional support [] Crisis/trauma care [] Spiritual counseling [] Bereavement support [] Provided bereavement packet [] Provided Bible/devotional materials [] Provided toy/stuffed animal, coloring book to patient or family member [] Provided Communion [] Anointing/[place] [] Salvation [x] Completed spiritual assessment [] Other: Impact on Illness or Injury [] Angry [] Fearful [] Anxious [] Often cries [] Exhaustion [] Unable to work [] Unable to attend zoroastrian [] Unable to walk/stand [] Unable to read [] Unable to drive [] Unable to eat/drink [] Unable to sleep [] Unable to be with family [] Patient intubated [] Other: Summary Patient having surgery today... possible new hip delightful lady.... Time spent with patient 15 min
[2020-08-09] MEDS: sodium chloride 0.9% 1,000 ML 30 ML IV (10:06)
--- NOTE | 2020-08-09 10:27 | ANES.PREANE2 ---
Pre-Anesthetic Assessment Pre-Anesthetic Assessment: Height/Weight: Height 1.68 m Weight 66.224 kg Temp Pulse Resp BP Pulse Ox 99.2 F 113 H 20 H 145/82 93 08/09/20 09:59 08/09/20 09:59 08/09/20 09:59 08/09/20 09:59 08/09/20 09:59 Preop Diagnosis: Left femoral neck fracture Proposed Procedure: Operation Date: 08/09/20 12:45 Proposed Procedures p Hemiarthroplasty Hip Bipolar(Left) - Marcelo Anderson MD Familial anesthetic complications: None Was Beta Susanna taken within 24 hours: N/A Last intake: Intake NPO > 8 hrs Last Liquid Date 08/08/20 Last Liquid Time 22:00 Last Solid Date 08/08/20 Last Solid Time 18:00 Social: Social History: No alcohol and No tobacco Exam: Pre-Anes Outpt Exam: alert, oriented x 3, clear to auscultation bilaterally and regular rate & rhythm Airway: Cervical ROM: WNL MP: 2 Dentition: Partials Pulmonary: Comments: October pneumonia on 2 L cannula and nebulizers since CV/HEM: CV/HEM: HTN and AR Comments: ischemic cardiomyopathy - EF 64% on moderate Tricuspid 2016 GI: GI: GERD Metabolic: Metabolic: Thyroid Anesthetic Plan: ASA status: 3 Anesthesia: General Risk of > 500 ml blood loss (7ml/kg in children): No Meds/Allergies Current Medications: Current Medications Generic Name Dose Route Start Last Admin Trade Name Freq PRN Reason Stop Dose Admin Hydrocodone Bitart /Acetaminophen 1 tab 08/07/20 17:03 08/09/20 09:23 [place] 5-325 Mg PO 1 tab Q8H PRN Administration MODERATE TO SEVER E PAIN Albuterol/Ipratrop ium 3 ml 08/07/20 21:00 08/09/20 08:15 Duoneb INHALATION 3 ml Q6H.RESPIRATORY S CH Administration Amitriptyline HCl 50 mg 08/08/20 09:00 08/09/20 09:16 Elavil PO 50 mg DAILY MAUDE Administration Atorvastatin Calci um 10 mg 08/08/20 09:00 08/09/20 09:15 Lipitor PO 10 mg DAILY MAUDE Administration Ergocalciferol 50,000 unit 08/08/20 12:30 08/08/20 13:09 Vitamin D2 PO 50,000 unit Q30D MAUDE Administration Famotidine 20 mg 08/07/20 18:00 08/09/20 09:19 Pepcid Inj IVP 20 mg Q12H MAUDE Administration Ferrous Sulfate 325 mg 08/08/20 08:00 08/09/20 09:16 Ferrous Sulfate PO 325 mg BIDWM MAUDE Administration Sodium Chloride 1,000 mls @ 30 ml s/hr 08/09/20 09:45 08/09/20 10:06 Sodium Chloride 0.9% IV 08/10/20 09:44 30 mls/hr .Q24H MAUDE Administration Levothyroxine Sodi um 25 mcg 08/08/20 09:00 08/09/20 09:16 Synthroid PO 25 mcg DAILY MAUDE Administration Metoprolol Tartrat e 25 mg 08/07/20 18:00 08/08/20 17:06 Lopressor PO 25 mg QPM MAUDE Administration Metoprolol Tartrat e 12.5 mg 08/08/20 06:00 08/09/20 06:11 Lopressor PO 12.5 mg QAM MAUDE Administration Morphine Sulfate 2 mg 08/07/20 17:03 08/08/20 22:21 Morphine IVP 2 mg Q4H PRN Administration SEVERE PAIN Ondansetron HCl 4 mg 08/07/20 17:03 08/07/20 17:53 Zofran IVP 4 mg Q6H PRN Administration NAUSEA AND VOMITI NG PFSH Anesthesia PFSH: Medical History Anxiety CAD (coronary artery disease) Post PCI to LAD in 2013 GERD (gastroesophageal reflux disease) History of AR (myocardial infarction) HTN (hypertension) Hyperlipidemia Hypothyroidism Ischemic cardiomyopathy Echocardiogram from 2016 shows an EF of 64% without diastolic dysfunction, moderate TR Surgical History S/P angioplasty with stent S/P appendectomy S/P hysterectomy Family History Other Cancer Hypertension Social History Smoking and tobacco status: former smoker Alcohol intake: never Substance/Drug Use: never Lives independently: Yes Housing: House Marital status: / Data Anesthesia CBC & Chem 7: 08/09/20 05:18 08/09/20 05:18 Other Labs: Laboratory Results - last 48 hr 08/07/20 08/07/20 08/07/20 14:27 14:35 14:35 WBC 18.2 H RBC 4.15 Hgb 12.8 Hct 39.9 MCV 96.1 MCH 30.8 MCHC 32.1 RDW 12.5 Plt Count 221 MPV 8.9 Neut % (Auto) 64.9 Lymph % (Auto) 30.9 [place] % (Auto) 3.0 Eos % (Auto) 0.3 Baso % (Auto) 0.3 Neut # (Auto) 11.81 H Lymph # (Auto) 5.6 H [place] # (Auto) 0.6 Eos # (Auto) 0.1 Baso # (Auto) 0.1 Nucleated RBC % (auto) 0 Nucleated RBCs # 0.0 PT 12.80 INR 0.93 APTT 27.2 Sodium Potassium Chloride Carbon Dioxide Anion Gap BUN Creatinine GFR Calculation Glucose Estimat Average Glucose Hemoglobin A1c Calculated Osmolality Calcium Iron TIBC % Saturation Unsat Iron Binding Total Bilirubin AST ALT Alkaline Phosphatase NT-Pro-B Natriuret Pep Total Protein Albumin Globulin Triglycerides Cholesterol LDL Cholesterol, Calc Total VLDL Cholesterol HDL Cholesterol Cholesterol/HDL Ratio 25-OH Vitamin D Total Procalcitonin TSH Free T4 Free T3 Urine Color Yellow Urine Appearance Hazy A Urine pH 5 Ur Specific [place] 1.025 Urine Protein Neg Urine Glucose (UA) Norm Urine Ketones Negative Urine Blood Neg Urine Nitrate Negative Urine Bilirubin 1+ H Urine Urobilinogen Norm Ur Leukocyte Esterase Negative Urine RBC 0-4 H Urine WBC 15-25 H Ur Squamous Epith Cells None Amorphous Sediment Not Reportable Urine Bacteria 3+ H SARS-CoV-2 Ag (Rapid) 08/07/20 08/07/20 08/07/20 14:35 14:35 14:35 WBC RBC Hgb Hct MCV MCH MCHC RDW Plt Count MPV Neut % (Auto) Lymph % (Auto) [place] % (Auto) Eos % (Auto) Baso % (Auto) Neut # (Auto) Lymph # (Auto) [place] # (Auto) Eos # (Auto) Baso # (Auto) Nucleated RBC % (auto) Nucleated RBCs # PT INR APTT Sodium 138 Potassium 4.2 Chloride 101 Carbon Dioxide 28 Anion Gap 13.2 BUN 20 Creatinine 1.1 H GFR Calculation Not Reportable Glucose 140 H Estimat Average Glucose Hemoglobin A1c Calculated Osmolality 291 Calcium 9.2 Iron 57 TIBC 297 % Saturation 19.1 L Unsat Iron Binding 240 Total Bilirubin 0.3 AST 17 ALT 11 Alkaline Phosphatase 105 NT-Pro-B Natriuret Pep 50 Total Protein 6.8 Albumin 4.3 Globulin 2.5 Triglycerides Cholesterol LDL Cholesterol, Calc Total VLDL Cholesterol HDL Cholesterol Cholesterol/HDL Ratio 25-OH Vitamin D Total Procalcitonin 0.05 TSH Free T4 Free T3 Urine Color Urine Appearance Urine pH Ur Specific [place] Urine Protein Urine Glucose (UA) Urine Ketones Urine Blood Urine Nitrate Urine Bilirubin Urine Urobilinogen Ur Leukocyte Esterase Urine RBC Urine WBC Ur Squamous Epith Cells Amorphous Sediment Urine Bacteria SARS-CoV-2 Ag (Rapid) 08/07/20 08/07/20 08/07/20 14:35 14:35 14:47 WBC RBC Hgb Hct MCV MCH MCHC RDW Plt Count MPV Neut % (Auto) Lymph % (Auto) [place] % (Auto) Eos % (Auto) Baso % (Auto) Neut # (Auto) Lymph # (Auto) [place] # (Auto) Eos # (Auto) Baso # (Auto) Nucleated RBC % (auto) Nucleated RBCs # PT INR APTT Sodium Potassium Chloride Carbon Dioxide Anion Gap BUN Creatinine GFR Calculation Glucose Estimat Average Glucose Hemoglobin A1c Calculated Osmolality Calcium Iron TIBC % Saturation Unsat Iron Binding Total Bilirubin AST ALT Alkaline Phosphatase NT-Pro-B Natriuret Pep Total Protein Albumin Globulin Triglycerides Cholesterol LDL Cholesterol, Calc Total VLDL Cholesterol HDL Cholesterol Cholesterol/HDL Ratio 25-OH Vitamin D Total 16 L Procalcitonin TSH 10.60 H Free T4 1.07 Free T3 3.2 Urine Color Urine Appearance Urine pH Ur Specific [place] Urine Protein Urine Glucose (UA) Urine Ketones Urine Blood Urine Nitrate Urine Bilirubin Urine Urobilinogen Ur Leukocyte Esterase Urine RBC Urine WBC Ur Squamous Epith Cells Amorphous Sediment Urine Bacteria SARS-CoV-2 Ag (Rapid) Negative 08/08/20 08/08/20 08/08/20 04:29 04:29 04:29 WBC 13.1 H RBC 3.71 L Hgb 11.4 L Hct 36.7 L MCV 98.9 MCH 30.7 MCHC 31.1 RDW 12.6 Plt Count 190 MPV 9.0 Neut % (Auto) 66.3 Lymph % (Auto) 28.5 [place] % (Auto) 4.7 Eos % (Auto) 0.0 Baso % (Auto) 0.2 Neut # (Auto) 8.67 H Lymph # (Auto) 3.7 [place] # (Auto) 0.6 Eos # (Auto) 0.0 Baso # (Auto) 0.0 Nucleated RBC % (auto) 0 Nucleated RBCs # 0.0 PT 13.60 INR 1.01 APTT Sodium 134 L Potassium 3.9 Chloride 102 Carbon Dioxide 22 Anion Gap 13.9 BUN 20 Creatinine 0.8 GFR Calculation Not Reportable Glucose 125 H Estimat Average Glucose Hemoglobin A1c Calculated Osmolality 282 L Calcium 8.5 Iron TIBC % Saturation Unsat Iron Binding Total Bilirubin 0.4 AST 19 ALT 10 Alkaline Phosphatase 87 NT-Pro-B Natriuret Pep Total Protein 6.1 L Albumin 3.8 Globulin 2.3 Triglycerides Cholesterol LDL Cholesterol, Calc Total VLDL Cholesterol HDL Cholesterol Cholesterol/HDL Ratio 25-OH Vitamin D Total Procalcitonin TSH Free T4 Free T3 Urine Color Urine Appearance Urine pH Ur Specific [place] Urine Protein Urine Glucose (UA) Urine Ketones Urine Blood Urine Nitrate Urine Bilirubin Urine Urobilinogen Ur Leukocyte Esterase Urine RBC Urine WBC Ur Squamous Epith Cells Amorphous Sediment Urine Bacteria SARS-CoV-2 Ag (Rapid) 08/09/20 08/09/20 08/09/20 05:18 05:18 05:18 WBC 13.9 H RBC 4.01 L Hgb 12.3 Hct 38.2 MCV 95.3 MCH 30.7 MCHC 32.2 RDW 12.4 Plt Count 176 MPV 8.6 Neut % (Auto) 69.8 Lymph % (Auto) 24.5 [place] % (Auto) 5.0 Eos % (Auto) 0.1 Baso % (Auto) 0.2 Neut # (Auto) 9.66 H Lymph # (Auto) 3.4 [place] # (Auto) 0.7 Eos # (Auto) 0.0 Baso # (Auto) 0.0 Nucleated RBC % (auto) 0 Nucleated RBCs # 0.0 PT INR APTT Sodium 134 L Potassium 3.4 L Chloride 101 Carbon Dioxide 20 L Anion Gap 16.4 BUN 15 Creatinine 0.9 GFR Calculation Not Reportable Glucose 113 Estimat Average Glucose 111 Hemoglobin A1c 5.5 Calculated Osmolality 280 L Calcium 8.8 Iron TIBC % Saturation Unsat Iron Binding Total Bilirubin 0.6 AST 23 ALT 10 Alkaline Phosphatase 86 NT-Pro-B Natriuret Pep Total Protein 6.3 L Albumin 3.6 Globulin 2.7 Triglycerides Cholesterol LDL Cholesterol, Calc Total VLDL Cholesterol HDL Cholesterol Cholesterol/HDL Ratio 25-OH Vitamin D Total Procalcitonin TSH Free T4 Free T3 Urine Color Urine Appearance Urine pH Ur Specific [place] Urine Protein Urine Glucose (UA) Urine Ketones Urine Blood Urine Nitrate Urine Bilirubin Urine Urobilinogen Ur Leukocyte Esterase Urine RBC Urine WBC Ur Squamous Epith Cells Amorphous Sediment Urine Bacteria SARS-CoV-2 Ag (Rapid) 08/09/20 05:18 WBC RBC Hgb Hct MCV MCH MCHC RDW Plt Count MPV Neut % (Auto) Lymph % (Auto) [place] % (Auto) Eos % (Auto) Baso % (Auto) Neut # (Auto) Lymph # (Auto) [place] # (Auto) Eos # (Auto) Baso # (Auto) Nucleated RBC % (auto) Nucleated RBCs # PT INR APTT Sodium Potassium Chloride Carbon Dioxide Anion Gap BUN Creatinine GFR Calculation Glucose Estimat Average Glucose Hemoglobin A1c Calculated Osmolality Calcium Iron TIBC % Saturation Unsat Iron Binding Total Bilirubin AST ALT Alkaline Phosphatase NT-Pro-B Natriuret Pep Total Protein Albumin Globulin Triglycerides 64 Cholesterol 135 LDL Cholesterol, Calc 63 Total VLDL Cholesterol 13 HDL Cholesterol 59 L Cholesterol/HDL Ratio 2.29 25-OH Vitamin D Total Procalcitonin TSH Free T4 Free T3 Urine Color Urine Appearance Urine pH Ur Specific [place] Urine Protein Urine Glucose (UA) Urine Ketones Urine Blood Urine Nitrate Urine Bilirubin Urine Urobilinogen Ur Leukocyte Esterase Urine RBC Urine WBC Ur Squamous Epith Cells Amorphous Sediment Urine Bacteria SARS-CoV-2 Ag (Rapid) Micro: Microbiology 08/07/20 14:27 Urine Culture - Final Urine,Clean Catch Escherichia coli 08/07/20 22:05 Blood Culture - Preliminary Blood NEGATIVE TO DATE 08/07/20 22:00 Blood Culture - Preliminary Blood NEGATIVE TO DATE 08/07/20 17:45 MRSA Culture - Final Nose Cardiac Studies: No Data to Display
--- NOTE | 2020-08-09 11:01 | P.PN_ITS ---
Subjective Subjective: Interval history: This morning patient was examined, she complains of minimal left hip pain, plans on surgical her procedure at noon, she had low- grade temperature overnight, but I think that she is feeling well, no chest pain, no shortness of breath, no lightheadedness, no dizziness he is wondering if her insurance covers senior living stay for rehab Vitals/I&O/Wt Last Vital Signs Temp 99.2 F 08/09/20 09:59 Pulse 113 H 08/09/20 09:59 Resp 20 H 08/09/20 09:59 BP 145/82 08/09/20 09:59 Pulse Ox 93 08/09/20 09:59 08/08/20 08/09/20 08/09/20 22:59 06:59 14:59 Intake Total 1480 / 1480 0 / 1480 Output Total 500 / 1400 300 / 1700 Balance 980 / 80 -300 / -220 Weight last 48 hrs Weight 66.224 kg Weight 66.224 kg Weight 61.235 kg Physical Exam Const: COMMON NORMALS: no acute distress and patient oriented x3 HENMT: COMMON NORMALS: normocephalic HEAD & SCALP: normocephalic Neck/C-Spine: COMMON NORMALS: no JVD Resp: COMMON NORMALS: normal respiratory effort, No retractions, No use of accessory muscles and clear to auscultation bilaterally AUSCULTATION: clear to auscultation bilaterally Cardio: COMMON NORMALS: no JVD, regular rate, regular rhythm, S1 normal heart sound present and S2 normal heart sound present RATE: regular rate RHYTHM: regular rhythm HEART SOUNDS: S1 normal heart sound present and S2 normal heart sound present GI: COMMON NORMALS: Normal to inspection, nondistended, normoactive bowel sounds present, Soft to palpation, non-tender, No hepatosplenomegaly present, no masses and no bruits PALPATION: Yes Soft to palpation and Yes No hepatosplenomegaly present Extremity: COMMON NORMALS: no calf tenderness and no pedal edema Neuro: COMMON NORMALS: patient oriented x3 Psych: COMMON NORMALS: mental status grossly normal Urinary Catheter Management^: Wright: Cath Placed During This Visit: yes Reason for Continuing Indwelling Catheter: Perioperative Use in Selected Surgeries Urinary Catheter Date of Insertion: 08/08/20 Urinary Catheter Time of Insertion: 23:00 Data : 08/09/20 05:18 08/09/20 05:18 Micro: Microbiology 08/07/20 14:27 Urine Culture - Final Urine,Clean Catch Escherichia coli 08/07/20 22:05 Blood Culture - Preliminary Blood NEGATIVE TO DATE 08/07/20 22:00 Blood Culture - Preliminary Blood NEGATIVE TO DATE 08/07/20 17:45 MRSA Culture - Final Nose A&P Assessment and plan (1) Closed hip fracture: Status: Deleted Qualifiers: Encounter type: initial encounter Laterality: left Qualified Code(s): S72.002A - Fracture of unspecified part of neck of left femur, initial encounter for closed fracture (2) Hypothyroidism: Status: Acute (3) Anxiety: Status: Acute (4) CAD (coronary artery disease): Status: Acute (5) Ischemic cardiomyopathy: Status: Acute (6) HTN (hypertension): Status: Acute (7) RICH (acute kidney injury): Status: Acute Additional A&P Information Closed subcapital fracture of left hip: Secondary to mechanical fall. Plan for OR today Physical therapy, anticoagulation, perioperative antibiotics as per Dr. Anderson. For now start patient on morphine 2 mg IV every 6 hours as needed along with [place] 5 every 6 hours as needed for pain. Patient had a low-grade temperature overnight, continue Rocephin for possible UTI For fevers Incentive spirometry, flutter valve. Bedrest for now. PT/OT evaluation post surgery. RICH: Resolved. Baseline creatinine from labs in 2014 0.9. Most likely secondary dehydration. Medical reconciliation done for nephrotoxic drugs. Gentle hydration for now and will continue to monitor BMP daily. CAD/post PCI to LAD in 2013: Severely allergic to aspirin. Patient takes Plavix and dipyrimadol at all at home. We will hold off both for now in view of possible OR tomorrow. Lipid panel shows low HDL For now continue with home dose of statin and metoprolol. Hypertension: Goal blood pressure less than 140/90 mmHg. Continue with home dose of metoprolol. Ischemic cardiomyopathy: EF 64% from echocardiogram in 2016. We will repeat echocardiogram. Vitamin D levels no so we will start her on vitamin D 50,000 units monthly. Started on iron supplementation orally. TSH high at more than 10 with normal free T3-T4. Given the history of cardiac disease we will start her on levothyroxine 25 mcg daily for now. Patient will need to repeat thyroid panel in 1 month. Other chronic medication like amitriptyline, meclizine as needed. CODE STATUS: Discussed with patient and patient's son at bedside. Patient states she is a DNR/DNI. Did discuss with the patient that she will be intubated for the procedure and she is okay with that. Cardiac diet for now. N.p.o. for surgery today Foot pumps for DVT prophylaxis. 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
--- NOTE | 2020-08-09 13:09 | W.PM.OPSUD ---
Surgery/Procedure H&P Update DATE OF PROCEDURE: August 09, 2020 DATE H&P PERFORMED: 08/07/20 PREOP DIAGNOSIS: Left femoral neck fracture PLANNED PROCEDURE: Operation Date: 08/09/20 12:45 Proposed Procedures p Hemiarthroplasty Hip Bipolar(Left) - Marcelo Anderson MD
[2020-08-09] MEDS: ceFAZolin 1,000 MG in sodium chloride 0.9% (plus) 50 ML 100 MG IV (13:45)
--- NOTE | 2020-08-09 14:15 | SUR.OPER ---
son notified of procedure start and patient status
[2020-08-09] MEDS: tranexamic acid 1,000 mg/10mL SDV 2000 MG IRRIGATION (14:19)
--- NOTE | 2020-08-09 15:00 | PM.OP ---
Operative Report Date of procedure: August 09, 2020 Pre-op Diagnosis: Left femoral neck fracture Post-op diagnosis: same Post-op Findings: Same Procedure Done: Left bipolar hip Implants: [place] secure fit BEJARANO size 7 stem 45 mm bipolar head 28 mm femoral head, standard neck length Pathology: none sent Surgeon: Marcelo Anderson Anesthesia: General Estimated blood loss (mL): 200 Findings: The patient had a displaced fracture of the right femoral neck Condition: stable Disposition: PACU Procedure: The patient was taken to the operating room and a []l anesthesia was provided by the anesthesia service. They were given []. and positioned in the lateral position with the hip exposed. A 10 cm long incision was made over the greater trochanter with a scalpel blade. Dissection was carried down through the fascia karly to the greater trochanter. The anterior two thirds of gluteus medius and minimus were elevated off the greater trochanter with electrocautery. The capsule was divided T like fashion. The hip was externally rotated and the neck brought up into the wound. An oscillating saw was really used to resect the neck just above the level of the lesser trochanter. The femoral head was removed and the acetabulumt sized to a [] mm bipolar head. Sequential reaming of the canal was accomplished up to a size []. The canal was broached to a size [] and a size [] [place] Securefit BEJARANO stem was press fit into place. A trial reduction with a [] mm neck provided excellent stability. The final head and neck were placed and the hip reduced. The anterior capsule were reapproximated with 1 Ethibond. The gluteus medius and minimus were repaired through the greater trochanter with 5 Ethibond and reinforced with 1 Ethibond. The fascia karly was closed with 1 Ethibond. The subcutaneous tissues were closed with 2-0 Vicryl. The skin was closed with skin iwona. Sterile dressings were applied. The patient was placed in abduction pillow and taken recovery room in stable condition.
--- NOTE | 2020-08-09 15:11 | XRR_ITS ---
PROCEDURE INFORMATION: Exam: XR Right Hip with Pelvis when Performed Exam date and time: 08/09/2020 3:26 PM Age: 79 years old Clinical indication: Screening exam; Bipolar hip postop; Prior surgery; Surgery date: Post-operative (0-2 days) TECHNIQUE: Imaging protocol: XR Right hip with pelvis when performed. Views: 1 view. COMPARISON: No relevant prior studies available. FINDINGS: Bones/joints: Metallic arthroplasty left hip in good position. No acute fracture. Soft tissues: Unremarkable. XR/XR hip RT 1V wo/w pel [id number] IMPRESSION: 1. Metallic arthroplasty left hip in good position. 2. Otherwise No acute findings.
--- NOTE | 2020-08-09 15:35 | SUR.PHASEI ---
PT MORE ALERT ON 4LNC NOW SATS 94%, RT HIP DRESSING D/I DISTAL FOOT PINK WARM X RAYS DONE.
--- NOTE | 2020-08-09 16:03 | SUR.PHASEI ---
PT AWAKE ALERT ASKING FOR HER CELL PHONE, VSS NURSE AT BEDSIDE CLEAR URINE TO FOLEYAND TUBING DRESSING D/I UNCHANGED HANDOFF AT BEDSIDE.
[2020-08-09] MEDS: cefTRIAXone 1,000 MG in sodium chloride 0.9% (plus) 50 ML 100 MG IV (16:27)
[2020-08-09] MEDS: sodium chloride 0.9% 1,000 ML 80 ML IV (16:27)
[2020-08-09] MEDS: metoprolol tartrate 25 mg Tablet PO (17:27)
[2020-08-09] MEDS: HYDROcodone-acetaminophen 5-325 mg Tablet PO (20:12)
[2020-08-10] VITALS (12 sets, daily range): BP systolic 97–129; BP diastolic 56–86; PULSE 82–127; RESP 14–20; TEMP 36.7–37.7; O2SAT 90–95
[2020-08-10] MEDS: ipratropium-albuterol 3 mL Neb INHALATION ×4 (02:57→20:13)
[2020-08-10 05:03] LABS: Basophils % 0.3 %; Eosinophils % 0.2 %; Hematocrit 33.8 % (37.0-47.0); Hemoglobin 11.1 g/dL (11.5-15.3); Lymphocytes # 2.8 10^3/uL (0.8-4.8); Lymphocytes % 23.9 %; Mean Corpuscular HGB Conc 32.8 g/dL (30.0-36.0); Mean Corpuscular Hemoglobin 30.5 pg (28.0-34.0); Mean Corpuscular Volume 92.9 fL (81-99); Mean Platelet Volume 8.8 fL (7.4-10.4); Monocytes # 0.8 10^3/uL (0.2-0.9); Monocytes % 7.1 %; Neutrophils # 7.99 10^3/uL (1.8-7.7); Neutrophils % 68.2 %; Nucleated Red Blood Cells % 0 %; Platelet Count 162 10^3/cmm (130-400); Red Blood Count 3.64 10^6/uL (4.1-5.3); Red Cell Distribution Width 12.3 % (12.1-15.1); White Blood Count 11.7 10^3/uL (4.0-10.0)
[2020-08-10] MEDS: sodium chloride 0.9% 1,000 ML 80 ML IV (05:09)
[2020-08-10] MEDS: metoprolol tartrate 25 mg Tablet 12.5 MG PO (05:21)
[2020-08-10 05:28] LABS: Alanine Aminotransferase 11 U/L (0-33); Albumin Level 3.1 g/dL (3.5-5.2); Alkaline Phosphatase 77 IU/L (35-105); Anion Gap 16.3 (5-19); Aspartate Amino Transferase 27 U/L (0-32); Blood Urea Nitrogen 16 mg/dL (8-23); Calcium 8.1 mg/dL (8.5-10.5); Carbon Dioxide 18 mmol/L (22-29); Chloride 102 mmol/L (98-107); Globulin 2.5 g/dL (1.3-4.6); Glucose 122 mg/dL (65-115); Osmolality Calculated 278 mOsm/kg (285-295); Potassium 3.3 mmol/L (3.5-5.1); Sodium 133 mmol/L (136-145); Total Bilirubin 0.5 mg/dL (0.15-1.2); Total Protein 5.6 g/dL (6.6-8.7)
--- NOTE | 2020-08-10 08:00 | PC.NURSE ---
Upon entering patients room, patient was found laying in bed with no clothes on. Patient had pulled out her IV with sheets saturated from IV fluids. Wright catheter was found laying in the floor. Patient had pulled out Wright with balloon intact. Dr. Anderson presents in room and verbalized to place another catheter.
--- NOTE | 2020-08-10 08:20 | PM.PN ---
Subjective Subjective: Interval history: Patient confused in bed. Pulled out IV and Wright last night. Vitals/I&O/Wt Last Vital Signs Temp 99.8 F H 08/10/20 03:00 Pulse 118 H 08/10/20 03:00 Resp 18 08/10/20 03:00 BP 126/69 08/10/20 03:00 Pulse Ox 90 08/10/20 03:00 08/09/20 08/10/20 08/10/20 22:59 06:59 14:59 Intake Total 400 / 450 1000 / 1450 Output Total 875 / 875 575 / 1450 Balance -475 / -425 425 / 0 Weight last 48 hrs Weight 146 lb Physical Exam Narrative: EXAM NARRATIVE: Left hip dressing clean and dry. Minimal swelling left thigh. Urinary Catheter Management^: Wright: Cath Placed During This Visit: yes Reason for Continuing Indwelling Catheter: Required Immobilization for Trauma or Surgery or Anesthesia Urinary Catheter Date of Insertion: 08/08/20 Urinary Catheter Time of Insertion: 23:00 Data : 08/10/20 04:39 08/10/20 04:39 Micro: Microbiology 08/07/20 14:27 Urine Culture - Final Urine,Clean Catch Escherichia coli A&P Assessment and plan (1) Postoperative state: A mobilize with therapy as tolerated. Supportive care per medicine. Status: Acute (2) Left displaced femoral neck fracture: Status: Resolved Attestations Medical Necessity Statement*: As per medicine. 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
[2020-08-10] MEDS: atorvastatin 40 mg Tablet 10 MG PO (08:30)
[2020-08-10] MEDS: levothyroxine 25 mcg Tablet PO (08:30)
[2020-08-10] MEDS: clopidogrel 75 mg Tablet PO (08:30)
[2020-08-10] MEDS: ferrous sulfate EC 325 mg Tablet PO ×2 (08:30→17:15)
--- NOTE | 2020-08-10 08:30 | PC.SOCIAL ---
IMM Page 2 of IMM explained to patient. Initialed, dated, and timed and placed in chart. Copy provided to patient.
[2020-08-10] MEDS: famotidine 20 mg/2 mL INJ IVP (08:34)
--- NOTE | 2020-08-10 09:01 | ANE.PACU2 ---
Inpatient post-anesthesia follow up: Airway intact: Yes Vital signs: Temperature 99.0 F Pulse Rate [Monito r] 75 Pulse Rate 101 Respiratory Rate 17 Blood Pressure [Ri ght Arm] 160/70 Blood Pressure 129/77 Pulse Oximetry 93 Oxygen Delivery Me thod Nasal Cannula Oxygen Flow Rate 3 Fraction of Inspir ed Oxygen Hydration adequate: Yes Nausea and vomiting: No Pain level: 2 Mental status: Altered Additional Comments: not oriented to time - states she thought it was sunday earlier today
[2020-08-10] MEDS: enoxaparin 40 mg/0.4 mL Syringe SUBCUT (09:12)
[2020-08-10] MEDS: potassium chloride ER 10 mEq Tablet 40 MEQ PO (09:12)
--- NOTE | 2020-08-10 10:47 | XRR_ITS ---
PROCEDURE INFORMATION: Exam: XR Chest, 1 View Exam date and time: 08/10/2020 11:11 AM Age: 79 years old Clinical indication: Shortness of breath; Prior surgery; Surgery type: Heart; Additional info: SOB TECHNIQUE: Imaging protocol: XR of the chest Views: 1 view. COMPARISON: CR (CHEST, ) 08/07/2020 1:48 PM FINDINGS: Lungs: Hyperinflation. No CHF or focal consolidation. Pleural space: No definite pleural effusion. No pneumothorax. Heart/Mediastinum: Unremarkable. No cardiomegaly. Bones/joints: No acute findings. XR/XR chest 1V portable [id number] IMPRESSION: No acute findings.
--- NOTE | 2020-08-10 13:08 | USCV_ITS ---
Nalini Richardson Age: 79 Gender: F : 1940 Exam Date: 08/10/2020 15:32 Ordering Phys: Juan Pablo Cerna MD Technologist: Jose Holt Exam Location: [facility] – [place] Indication: BED STASIS HISTORY: Lower extremity edema. PROCEDURES: The venous duplex Doppler examination of both lower extremities was performed in the standard fashion. The following venous structures were evaluated: common femoral vein, profunda vein, proximal portion of the greater saphenous vein, superficial femoral vein, and the popliteal vein. In addition, the posterior tibial and peroneal trunk were evaluated. Bilaterally, the common femoral, superficial femoral, profunda femoral, popliteal, posterior tibial, greater saphenous veins, and the peroneal trunk were identified and interrogated in the standard fashion. These veins were found to be easily compressible with spontaneous blood flow. No evidence of insufficiency or thrombus noted. FINDINGS: Normal 2-D Doppler and augmentation and compressibility throughout the lower extremity venous structures. Additional imaging through the proximal calf veins also reveals no thrombus. Limited evaluation of the greater saphenous vein is patent with no thrombus.. CONCLUSIONS No evidence of right lower extremity DVT. No evidence of left lower extremity DVT. Girma Nicolas MD (Electronically Signed) Final Date: 10 August 2020 17:41 S
--- NOTE | 2020-08-10 13:08 | CTR_ITS ---
PROCEDURE INFORMATION: Exam: CT Angiography Chest With Contrast Exam date and time: 08/10/2020 4:20 PM Age: 79 years old Clinical indication: Fever and shortness of breath; Prior surgery; Surgery type: Appy, stent, hysto; Patient HX: AMS, low grade fever, SOB; Additional info: AMS, requirig 3l o2, low grade fever TECHNIQUE: Imaging protocol: Computed tomographic angiography of the chest with intravenous contrast. 3D rendering (Not supervised by radiologist): MIP and/or 3D reconstructed images were created by the technologist. Radiation optimization: All CT scans at this facility use at least one of these dose optimization techniques: automated exposure control; mA and/or kV adjustment per patient size (includes targeted exams where dose is matched to clinical indication); or iterative reconstruction. Contrast material: OMNI 350; Contrast volume: 68 ml; Contrast route: INTRAVENOUS (IV); COMPARISON: CR XR chest 1V portable [id number] 08/10/2020 11:12 AM RADIATION DOSE METRICS: Total DLP (mGy-cm): 1091.95 FINDINGS: Pulmonary arteries: No pulmonary emboli. Aorta: No aortic aneurysm. No aortic dissection. Lungs: Trace left lower lung consolidation. Emphysematous change. No lobar consolidation. Minimal interstitial thickening. Irregularly marginated 1 cm nodule in the superior segment of the right lower lobe. Small bilateral ground-glass nodules largest approximately 1 cm. Small granulomas. Pleural space: Very small left pleural effusion. Heart: No cardiomegaly. No pericardial effusion. Lymph nodes: No significant adenopathy. Gallbladder and bile ducts: Cholelithiasis. Possible gallbladder distention. Bones/joints: No acute findings. Soft tissues: Unremarkable. CT/CT angio chest PE protcl [id number] IMPRESSION: No pulmonary embolism. Nonspecific ground-glass nodules. 1 cm right lower lobe nodule, suspicious for malignancy, follow-up suggested. Very small left pleural effusion. Highly suspicious nodule(s). Consider PET/CT, or tissue sampling.(Reference: Vashti) References: Vashti De La Cruz et al. Guidelines for Management of Incidental Pulmonary Nodules Detected on CT Images: From the Fleischner Society 2017. Radiology. 2017;284(1):228-243. Radiation Dose CTDIVOL = (mGy): DLP = 1091.95 (mGy-cm)
[2020-08-10 14:29] LABS: NT Pro B Type Natriuretic Pept 784 pg/mL (0-450)
--- NOTE | 2020-08-10 14:56 | PM.PN ---
Subjective Subjective: Interval history: Overnight patient had a low-grade temperature of 99.8, is using 3 L throughout the day which is unusual for her, has no particular complaints, no chest pain, no shortness of breath, no lightheadedness, dizziness, last night she had episodes of confusion, she took out her Wright catheter twice, and had to be replaced, she also took out her IVs, patient has episodes of confusion, upon my examination twice today, deep into conversation, she will get most questions appropriately, but at surface level can appear quite confused, for example she did not remember when her surgery was, she did not remember why she was here at the hospital, she cannot remember where she is, she does not remember me, but she did remember that i was from [place] after having a in-depth discussion with her Vitals/I&O/Wt Last Vital Signs Temp 98.5 F 08/10/20 12:00 Pulse 97 08/10/20 14:48 Resp 16 08/10/20 14:45 BP 127/66 08/10/20 12:00 Pulse Ox 94 08/10/20 14:45 08/09/20 08/10/20 08/10/20 22:59 06:59 14:59 Intake Total 400 / 450 1000 / 1450 240 / 240 Output Total 875 / 875 575 / 1450 Balance -475 / -425 425 / 0 240 / 240 Weight last 48 hrs Weight 66.224 kg Physical Exam Const: COMMON NORMALS: no acute distress and patient oriented x3 EXAM LIMITATIONS: altered mental status ORIENTATION/CONSCIOUSNESS: Yes awake, Yes oriented to person, Yes oriented to time and Yes confused; not oriented to place HENMT: COMMON NORMALS: normocephalic HEAD & SCALP: normocephalic Neck/C-Spine: COMMON NORMALS: no JVD Resp: COMMON NORMALS: normal respiratory effort, No retractions, No use of accessory muscles and clear to auscultation bilaterally AUSCULTATION: clear to auscultation bilaterally Cardio: COMMON NORMALS: no JVD, regular rate, regular rhythm, S1 normal heart sound present and S2 normal heart sound present RATE: regular rate RHYTHM: regular rhythm HEART SOUNDS: S1 normal heart sound present and S2 normal heart sound present GI: COMMON NORMALS: Normal to inspection, nondistended, normoactive bowel sounds present, Soft to palpation, non-tender, No hepatosplenomegaly present, no masses and no bruits PALPATION: Yes Soft to palpation and Yes No hepatosplenomegaly present Extremity: COMMON NORMALS: capillary refill normal, no clubbing, cyanosis or edema, no calf tenderness and no pedal edema Neuro: COMMON NORMALS: patient oriented x3 SENSORIUM/ORIENTATION: Yes oriented to person, No oriented to place and Yes oriented to time Psych: COMMON NORMALS: mental status grossly normal Urinary Catheter Management^: Wright: Cath Placed During This Visit: yes, but has since been removed by the nurse Reason for Continuing Indwelling Catheter: Decision to DC Catheter Urinary Catheter Date of Insertion: 08/10/20 Urinary Catheter Time of Insertion: 08:42 Date Urinary Catheter Removed: 08/10/20 Time Urinary Catheter Discontinued: 08:00 Data : 08/10/20 04:39 08/10/20 04:39 A&P Assessment and plan (1) Closed hip fracture: Status: Deleted Qualifiers: Encounter type: initial encounter Laterality: left Qualified Code(s): S72.002A - Fracture of unspecified part of neck of left femur, initial encounter for closed fracture (2) Hypothyroidism: Status: Acute (3) Anxiety: Status: Acute (4) CAD (coronary artery disease): Status: Acute (5) Ischemic cardiomyopathy: Status: Acute (6) HTN (hypertension): Status: Acute (7) RICH (acute kidney injury): Status: Acute (8) Postoperative confusion: -Low-grade temperature of 99.8, is requiring 3 L nasal cannula -Urine culture has grown out E. coli, has been on Rocephin for the last 2 days -Chest x-ray this morning is unremarkable for focal pneumonia, white blood cell count 11.7 -Has no particular complaints, did have episode confusion removing IVs, pulled out her Wright catheter, on surface level does appear confused, but with redirection and in-depth conversation she gets most questions correct -She tells me that she is had forgetfulness for some period of time -Repeat blood cultures negative -CT was negative for acute stroke plan: -Follow blood cultures -Continue Rocephin, if confusion worsens or becomes febrile will broaden antibiotic coverage -Given her increased oxygen requirements, will do a CT angiogram of the chest to rule out pulmonary embolism and bilateral lower extremity ultrasounds to rule out DVTs -Encourage incentive spirometer use, up out of bed -I suspect that her confusion is some degree of dementia, and confusion related to being here in the hospital for the last 72 hours, she is not in a regular warm environment -Neurochecks -I did an extensive neurologic examination, alert oriented x2, cranial nerves II to XII grossly intact, strength upper extremity 5 out of 5 bilaterally, strength lower extremities is equal, but is in a leg binder, no focal neurologic deficits noted, no slurring of her speech, no acute vision changes, otosor-lh-zmij is intact Status: Acute Additional A&P Information Closed subcapital fracture of left hip: Secondary to mechanical fall. Status post bipolar hip left, by Dr. Anderson postop day 1 Physical therapy, anticoagulation, perioperative antibiotics as per Dr. Anderson. For now [place] 5 every 6 hours as needed for pain. Incentive spirometry, flutter valve. Bedrest for now. PT/OT evaluation post surgery. RICH: Resolved. Baseline creatinine from labs in 2014 0.9. Most likely secondary dehydration. Medical reconciliation done for nephrotoxic drugs. Gentle hydration for now and will continue to monitor BMP daily. CAD/post PCI to LAD in 2013: Severely allergic to aspirin. Patient takes Plavix and dipyrimadol at all at home. We will hold off both for now in view of possible OR tomorrow. Lipid panel shows low HDL For now continue with home dose of statin and metoprolol. Hypertension: Goal blood pressure less than 140/90 mmHg. Continue with home dose of metoprolol. Ischemic cardiomyopathy: EF 64% from echocardiogram in 2016. We will repeat echocardiogram. Vitamin D levels no so we will start her on vitamin D 50,000 units monthly. Started on iron supplementation orally. TSH high at more than 10 with normal free T3-T4. Given the history of cardiac disease we will start her on levothyroxine 25 mcg daily for now. Patient will need to repeat thyroid panel in 1 month. Other chronic medication like amitriptyline, meclizine as needed. CODE STATUS: Discussed with patient and patient's son at bedside. Patient states she is a DNR/DNI. Did discuss with the patient that she will be intubated for the procedure and she is okay with that. Cardiac diet for now. N.p.o. for surgery today Foot pumps for DVT prophylaxis. 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
[2020-08-10] MEDS: iohexol 350 mg/mL 100 mL Btl IV (16:58)
[2020-08-10] MEDS: HYDROcodone-acetaminophen 5-325 mg Tablet 1 TAB PO (17:15)
[2020-08-10] MEDS: cefTRIAXone 1,000 MG in sodium chloride 0.9% (plus) 50 ML 100 MG IV (17:15)
[2020-08-10] MEDS: metoprolol tartrate 25 mg Tablet PO (17:15)
[2020-08-10] MEDS: famotidine 20 mg Tablet PO (19:56)
[2020-08-10] MEDS: azithromycin 500 MG in sodium chloride 0.9% 250 ML 250 MG IV (19:57)
[2020-08-11] VITALS (15 sets, daily range): BP systolic 93–124; BP diastolic 56–73; PULSE 99–119; RESP 18–20; TEMP 36.6–37.3; O2SAT 91–95
[2020-08-11 02:51] LABS: Basophils % 0.2 %; Eosinophils % 0.1 %; Hematocrit 31.7 % (37.0-47.0); Hemoglobin 10.4 g/dL (11.5-15.3); Lymphocytes # 3.4 10^3/uL (0.8-4.8); Lymphocytes % 25.6 %; Mean Corpuscular HGB Conc 32.8 g/dL (30.0-36.0); Mean Corpuscular Hemoglobin 30.7 pg (28.0-34.0); Mean Corpuscular Volume 93.5 fL (81-99); Mean Platelet Volume 8.9 fL (7.4-10.4); Monocytes # 1.2 10^3/uL (0.2-0.9); Monocytes % 8.8 %; Neutrophils # 8.58 10^3/uL (1.8-7.7); Neutrophils % 64.9 %; Nucleated Red Blood Cells % 0 %; Platelet Count 182 10^3/cmm (130-400); Red Blood Count 3.39 10^6/uL (4.1-5.3); Red Cell Distribution Width 12.6 % (12.1-15.1); White Blood Count 13.2 10^3/uL (4.0-10.0)
[2020-08-11] MEDS: ipratropium-albuterol 3 mL Neb INHALATION ×4 (02:51→21:39)
[2020-08-11 03:32] LABS: Alanine Aminotransferase 16 U/L (0-33); Alkaline Phosphatase 71 IU/L (35-105); Anion Gap 14.1 (5-19); Aspartate Amino Transferase 33 U/L (0-32); Blood Urea Nitrogen 17 mg/dL (8-23); Calcium 8.6 mg/dL (8.5-10.5); Carbon Dioxide 20 mmol/L (22-29); Chloride 105 mmol/L (98-107); Globulin 2.6 g/dL (1.3-4.6); Glucose 135 mg/dL (65-115); Osmolality Calculated 286 mOsm/kg (285-295); Potassium 3.1 mmol/L (3.5-5.1); Sodium 136 mmol/L (136-145); Total Bilirubin 0.4 mg/dL (0.15-1.2); Total Protein 5.6 g/dL (6.6-8.7)
[2020-08-11] MEDS: metoprolol tartrate 25 mg Tablet 12.5 MG PO (06:09)
[2020-08-11 06:49] LABS: NT Pro B Type Natriuretic Pept 1055 pg/mL (0-450); Procalcitonin 0.47 ng/mL (0-0.5)
[2020-08-11 08:06] LABS: C Reactive Protein 222.2 mg/L (0.0-4.9); Magnesium 1.9 mg/dL (1.7-2.3)
[2020-08-11] MEDS: famotidine 20 mg Tablet PO ×2 (08:25→20:56)
[2020-08-11] MEDS: ferrous sulfate EC 325 mg Tablet PO ×2 (08:25→18:04)
[2020-08-11] MEDS: atorvastatin 40 mg Tablet 10 MG PO (08:26)
[2020-08-11] MEDS: clopidogrel 75 mg Tablet PO (08:26)
[2020-08-11] MEDS: levothyroxine 25 mcg Tablet PO (08:26)
--- NOTE | 2020-08-11 09:16 | ECG_ITS ---
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 Measurements Intervals [place] Rate: 119 P: 147 AK: 117 QRS: 124 QRSD: 78 T: 151 QT: 307 QTc: 433 Interpretive Statements ECTOPIC ATRIAL TACHYCARDIA WITH SHORT AK INTERVAL WITH OCCASIONAL SUPRAVENTRICULAR PREMATURE COMPLEXES LEFT ATRIAL ENLARGEMENT [-0.15mV P WAVE IN V1/V2] MARKED RIGHT AXIS DEVIATION [QRS AXIS > 100] LOW QRS VOLTAGE [QRS DEFLECTION < 0.5/1.0 mV IN LIMB/CHEST LEADS] MINIMAL ST DEPRESSION [0.025+ mV ST DEPRESSION] Compared to ECG 08/07/2020 14:15:58 Short AK interval now present Atrial abnormality now present Right-axis deviation now present ST (T wave) deviation now present Sinus rhythm no longer present Electronically Signed On 08-11-2020 12:49:00 CDT by Neelam Aguilar M.D. [id number]
[2020-08-11] MEDS: potassium chloride premix 100 ML 25 MEQ IV (10:49)
[2020-08-11] MEDS: FUROsemide 10 mg/mL SDV 4mL 40 MG IVP (10:50)
[2020-08-11] MEDS: enoxaparin 40 mg/0.4 mL Syringe SUBCUT (10:50)
--- NOTE | 2020-08-11 12:07 | ECG_ITS ---
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 Measurements Intervals [place] Rate: 135 P: 67 TX: 104 QRS: 57 QRSD: 74 T: 78 QT: 293 QTc: 440 Interpretive Statements SINUS TACHYCARDIA WITH SHORT TX INTERVAL WITH FREQUENT SUPRAVENTRICULAR PREMATURE COMPLEXES NONSPECIFIC ST & T-WAVE ABNORMALITY ABNORMAL RHYTHM ECG Compared to ECG 08/11/2020 10:01:05 T-wave abnormality now present Atrial abnormality no longer present Right-axis deviation no longer present ST (T wave) deviation no longer present Electronically Signed On 08-11-2020 12:49:30 CDT by Neelam Aguilar M.D. [id number]
--- NOTE | 2020-08-11 12:07 | USCV_ITS ---
Nalini Richardson Age: 79 Gender: F : 1940 Exam Date: 08/11/2020 16:25 Ordering Phys: Juan Pablo Cerna MD Technologist: Leyla Hu [place] [facility] [place]: AFIB BP: 124 / 65 HR: 101 Rhythm: Sinus Technical Quality: MEASUREMENTS (Male / Female) Normal Values 2D ECHO LV Diastolic Diameter PLAX 2.8 cm 4.2 - 5.9 / 3.9 - 5.3 cm LV Systolic Diameter PLAX 2.0 cm LV Chamber Size 3.0 cm IVS Diastolic Thickness 1.6 cm 0.6 - 1.0 / 0.6 - 0.9 cm IVS Systolic Thickness 1.7 cm LVPW Diastolic Thickness 1.3 cm 0.6 - 1.0 / 0.6 - 0.9 cm LVPW Systolic Thickness 1.6 cm RV Chamber Size 3.4 cm LVOT Diameter 2.0 cm LV Ejection Fraction 2D Teich 58.7 % LV Ejection Fraction MOD 2C 65.7 % LV Ejection Fraction 2C AL 65.6 % LA Diameter 2.9 cm LA Width 2.5 cm LA Height 2.9 cm RA Width 3.0 cm RA Height 4.4 cm Aorta at Sinotubular Diameter 2.3 cm M-MODE LV Diastolic Diameter MM 4.0 cm 4.2 - 5.9 / 3.9 - 5.3 cm LV Systolic Diameter MM 2.6 cm LV Ejection Fraction MM Teich 64.1 % IVS Diastolic Thickness MM 1.0 cm 0.6 - 1.0 / 0.6 - 0.9 cm IVS Systolic Thickness MM 1.1 cm LVPW Diastolic Thickness MM 1.2 cm 0.6 - 1.0 / 0.6 - 0.9 cm LVPW Systolic Thickness MM 1.6 cm RV Diastolic Diameter MM 0.7 cm Aortic Annulus Diameter 2.7 cm LA Ao Ratio MM 1.2 MV E Point Septal Separation 0.5 cm DOPPLER AV Peak Velocity 146.0 cm/s LVOT Peak Velocity 95.0 cm/s AV Area Cont Eq vti 3.1 cm squared AV Area Cont Eq pk 2.0 cm squared MV Area PHT 5.1 cm squared Mitral E to A Ratio 0.8 MV E' Velocity 52.5 cm/s Mitral E to MV E' Ratio 8.2 Mitral E to LV E' Lateral Ratio 7.3 Mitral E to LV E' Septal Ratio 9.5 TR Peak Velocity 272.6 cm/s TR Peak Gradient 29.7 mmHg TR Mean Velocity 200.5 cm/s TR Mean Gradient 18.2 mmHg TR Velocity Time Integral 71.2 cm TV Peak E Velocity 60.0 cm/s Right Atrial Pressure 5.0 mmHg Pulmonary Artery Systolic Pressu 34.7 mmHg PV Peak Velocity 63.0 cm/s RV Acceleration Time 0.2 s RV Ejection Time 0.4 s RV AcT/ET 0.6 FINDINGS Left Ventricle Normal left ventricular cavity size. Normal left ventricular systolic function. Left ventricular ejection fraction is estimated at 64 %. No regional wall motion abnormalities. Grade I/IV diastolic dysfunction (abnormal relaxation filling pattern), normal to mildly elevated filling pressures. Right Ventricle The right ventricle is normal in size and function. Right Atrium The right atrium is normal in size. Left Atrium The left atrium is normal in size. Mitral Valve Structurally normal mitral valve without significant stenosis or prolapse. There is no mitral regurgitation. Aortic Valve Aortic valve sclerosis without stenosis but trace regurgitation. Tricuspid Valve Mild tricuspid valve regurgitation. Pulmonic Valve Structurally normal pulmonic valve without significant stenosis. There is no pulmonic regurgitation. Pericardium Normal pericardium without effusion. Aorta Normal ascending aorta dimension. CONCLUSIONS 1-Normal left ventricular cavity size. Normal left ventricular systolic function. Left ventricular ejection fraction is estimated at 64 %. No regional wall motion abnormalities. Grade I/IV diastolic dysfunction (abnormal relaxation filling pattern), normal to mildly elevated filling pressures. 2-Aortic valve sclerosis without stenosis but trace regurgitation. 3-There is no pericardial effusion. 4-Pulmonary artery systolic pressure is within normal limits. 5-Right atrial pressure is around 5 mm of mercury. 6-No significant change since the prior echocardiogram study of 10/26/2015. Beryl Bustillo MD (Electronically Signed) Final Date: 15 August 2020 16:00 S
[2020-08-11 14:00] LABS: Troponin(5th) Baseline 21 ng/L (0-10)
--- NOTE | 2020-08-11 14:07 | ECG_ITS ---
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 Measurements Intervals [place] Rate: 98 P: 15 NV: 109 QRS: 55 QRSD: 74 T: 48 QT: 329 QTc: 422 Interpretive Statements SINUS RHYTHM WITH SHORT NV INTERVAL WITH FREQUENT SUPRAVENTRICULAR PREMATURE COMPLEXES MINIMAL ST DEPRESSION [0.025+ mV ST DEPRESSION] ABNORMAL RHYTHM ECG Compared to ECG 08/11/2020 12:46:13 ST (T wave) deviation now present Sinus tachycardia no longer present T-wave abnormality no longer present Electronically Signed On 08-11-2020 21:52:39 CDT by Romeo Comer M.D. [email or web address] [email or web address] [id number]
[2020-08-11] MEDS: metoprolol tartrate 1 mg/1 mL SDV 5 mL 5 MG IV (14:32)
--- NOTE | 2020-08-11 14:49 | P.PN_ITS ---
Subjective Subjective: Interval history: This morning patient is alert oriented x3, she answers most questions appropriately, did have episodes of confusion overnight requiring a one-on-one sitter In the afternoon, patient developed episodes of A. fib with RVR on telemetry, heart rates in the high 150s to 170s, unfortunately the EKG did not capture it, but it looked like atrial fibrillation on telemetry, she was given metoprolol 5 mg IV once, she converted to normal sinus rhythm, heart rates 100s to 110, no complaints of chest pain, does h atypical infectious process given ave a cardiac history, no complaints of shortness of breath. Patient had a CT angiogram of her chest that showed groundglass opacities, concerning for her increased oxygen requirements of 3 L, in addition it showed a 1 cm right lower lobe nodule suspicious for malignancy Vitals/I&O/Wt Last Vital Signs Temp 98.7 F 08/11/20 11:45 Pulse 119 H 08/11/20 14:28 Resp 18 08/11/20 11:45 BP 124/65 08/11/20 11:45 Pulse Ox 92 08/11/20 11:45 08/10/20 08/11/20 08/11/20 22:59 06:59 14:59 Intake Total 420 / 900 100 / 1000 360 / 360 Output Total 950 / 950 Balance -530 / -50 100 / 50 360 / 360 Physical Exam Const: COMMON NORMALS: no acute distress and patient oriented x3 HENMT: COMMON NORMALS: normocephalic HEAD & SCALP: normocephalic Neck/C-Spine: COMMON NORMALS: no JVD Resp: COMMON NORMALS: normal respiratory effort, No retractions and No use of accessory muscles AUSCULTATION: crackles Cardio: COMMON NORMALS: no JVD, S1 normal heart sound present and S2 normal heart sound present RATE: tachycardic RHYTHM: abnormal rhythm HEART SOUNDS: S1 normal heart sound present and S2 normal heart sound present GI: COMMON NORMALS: Normal to inspection, nondistended, normoactive bowel sounds present, Soft to palpation, non-tender, No hepatosplenomegaly present, no masses and no bruits PALPATION: Yes Soft to palpation and Yes No hepatosplenomegaly present Extremity: COMMON NORMALS: capillary refill normal, no clubbing, cyanosis or edema and no calf tenderness NARRATIVE EXTREMITY EXAM: 1+ edema, left lower extremity in a binder Neuro: COMMON NORMALS: patient oriented x3 Psych: COMMON NORMALS: mental status grossly normal Urinary Catheter Management^: Wright: Cath Placed During This Visit: yes, but has since been removed by the nurse Reason for Continuing Indwelling Catheter: Other Urinary Catheter Date of Insertion: 08/10/20 Urinary Catheter Time of Insertion: 08:42 Date Urinary Catheter Removed: 08/10/20 Time Urinary Catheter Discontinued: 08:00 Data : 08/11/20 02:18 08/11/20 02:18 A&P Assessment and plan (1) Closed hip fracture: Status: Deleted Qualifiers: Encounter type: initial encounter Laterality: left Qualified Code(s): S72.002A - Fracture of unspecified part of neck of left femur, initial encounter for closed fracture (2) Hypothyroidism: Status: Acute (3) Anxiety: Status: Acute (4) CAD (coronary artery disease): Status: Acute (5) Ischemic cardiomyopathy: Status: Acute (6) HTN (hypertension): Status: Acute (7) RICH (acute kidney injury): Status: Acute (8) Postoperative confusion: -No temperatures overnight is requiring 3 L nasal cannula -Urine culture has grown out E. coli, has been on Rocephin for the last 2 days -CT of the chest shows groundglass opacities -Has no particular complaints, did have episode confusion removing IVs, pulled out her Wright catheter, on surface level does appear confused, but with redirection and in-depth conversation she gets most questions correct -This morning is alert oriented x3 -She tells me that she is had forgetfulness for some period of time -Repeat blood cultures negative -CT was negative for acute stroke plan: -Follow blood cultures -Added azithromycin for atypical pneumonia -Continue Rocephin, if confusion worsens or becomes febrile will broaden antibiotic coverage -New onset atrial fibrillation, will do CT of the head to rule out embolic stroke -Encourage incentive spirometer use, up out of bed -I suspect that her confusion is some degree of dementia, and confusion related to being here in the hospital for the last 72 hours, she is not in a regular homeenvironment -Neurochecks -I did an extensive neurologic examination, alert oriented x3, cranial nerves II to XII grossly intact, strength upper extremity 5 out of 5 bilaterally, strength lower extremities is equal, but is in a leg binder, no focal neurologic deficits noted, no slurring of her speech, no acute vision changes, [id number] is intact Status: Acute (9) Atypical pneumonia: Status: Acute (10) Atrial fibrillation: -New onset atrial fibrillation -Has underlying cardiovascular disease -EKG series, troponin series -Increase metoprolol to 50 twice daily -Monitor telemetry -CT head negative for intracranial hemorrhage, will start Eliquis 5 mg twice daily, monitor hemoglobin - Status: Acute Additional A&P Information Closed subcapital fracture of left hip: Secondary to mechanical fall. Status post bipolar hip left, by Dr. Anderson postop day 2 Physical therapy, anticoagulation, perioperative antibiotics as per Dr. Anderson. For now [place] 5 every 6 hours as needed for pain. Incentive spirometry, flutter valve. Bedrest for now. PT/OT evaluation post surgery. RICH: Resolved. Baseline creatinine from labs in 2014 0.9. Most likely secondary dehydration. Medical reconciliation done for nephrotoxic drugs. Gentle hydration for now and will continue to monitor BMP daily. CAD/post PCI to LAD in 2013: Severely allergic to aspirin. Patient takes Plavix and dipyrimadol at all at home. We will hold off both for now in view of possible OR tomorrow. Lipid panel shows low HDL For now continue with home dose of statin and metoprolol and plavix Hypertension: Goal blood pressure less than 140/90 mmHg. Continue with home dose of metoprolol. Ischemic cardiomyopathy: EF 64% from echocardiogram in 2016. We will repeat echocardiogram. Vitamin D levels no so we will start her on vitamin D 50,000 units monthly. Started on iron supplementation orally. TSH high at more than 10 with normal free T3-T4. Given the history of cardiac disease we will start her on levothyroxine 25 mcg daily for now. Patient will need to repeat thyroid panel in 1 month. Other chronic medication like amitriptyline, meclizine as needed. CODE STATUS: Discussed with patient and patient's son at bedside. Patient states she is a DNR/DNI. Did discuss with the patient that she will be intubated for the procedure and she is okay with that. Cardiac diet for now. N.p.o. for surgery today Foot pumps for DVT prophylaxis. We will hold off on pharmacological prophylaxis right now in view of going to the OR today Attestations Medical Necessity Statement*: Patient requires hospitalization for postoperative confusion, new onset atrial fibrillation, pneumonia Coding Level of Care Code Acute Central Lab Technician for Chg Fwd Diagnoses Closed hip fracture S72.002A Encounter type: initial encounter Laterality: left Hypothyroidism E03.9 Anxiety F41.9 CAD (coronary artery disease) I25.10 Ischemic cardiomyopathy I25.5 HTN (hypertension) I10 RICH (acute kidney injury) N17.9 Postoperative confusion R41.0 Atypical pneumonia J18.9 Atrial fibrillation I48.91
--- NOTE | 2020-08-11 14:52 | CT_ITS ---
WS: [id number] CT HEAD TECHNIQUE: Noncontrast CT of the head obtained from the skullbase to the vertex. CLINICAL INFORMATION: ams, newonset afib, r/o ICH COMPARISON: None. DLP: [address] scans at [facility] use at least one of these dose optimization techniques: automat ed exposure control; mA and/or kV adjustment per patient size (includes targeted exams where dose is matched to clinical indication); or iterative reconstruction. FINDINGS: No evidence of intracranial hemorrhage or mass effect. Ventricular system and basal cisterns are castillo nt. Mild small vessel changes with moderate parenchymal volume loss. Chronic lacunar infarct anterior limb left internal capsule is unchanged. No extra-axial fluid collections. No evidence of mass or ma ss effect. Paranasal sinuses and mastoid air cells are well aerated. .Normal visualized soft tissues. CT/CT head wo con* [id number] IMPRESSION: 1. No evidence of intracranial hemorrhage or mass effect. 2. Mild small vessel changes. Moderate parenchymal volume loss. 3. Chronic lacunar infarct anterior limb left internal capsule unchanged. 4. No significant changes since August 07, 2020 Notified Juan Pablo Cerna MD at 08/11/2020 3:43 PM.
[2020-08-11 14:56] LABS: Anion Gap 18.9 (5-19); Blood Urea Nitrogen 17 mg/dL (8-23); Calcium 8.6 mg/dL (8.5-10.5); Carbon Dioxide 19 mmol/L (22-29); Chloride 102 mmol/L (98-107); Glucose 167 mg/dL (65-115); Osmolality Calculated 289 mOsm/kg (285-295); Sodium 137 mmol/L (136-145)
[2020-08-11 15:07] LABS: Potassium 2.9 mmol/L (3.5-5.1)
[2020-08-11] MEDS: metoprolol tartrate 50 mg Tablet PO (15:54)
[2020-08-11 16:18] LABS: Troponin 5 2HR 22.48 ng/L (0-10); Troponin 5 2HR Delta 1.48 ABS# (0-10)
[2020-08-11] MEDS: apixaban 5 mg Tablet PO (18:04)
[2020-08-11] MEDS: cefTRIAXone 1,000 MG in sodium chloride 0.9% (plus) 50 ML 100 MG IV (18:04)
[2020-08-11 20:04] LABS: Anion Gap 18.4 (5-19); Blood Urea Nitrogen 18 mg/dL (8-23); Calcium 8.6 mg/dL (8.5-10.5); Carbon Dioxide 20 mmol/L (22-29); Chloride 101 mmol/L (98-107); Glucose 223 mg/dL (65-115); Osmolality Calculated 291 mOsm/kg (285-295); Potassium 3.4 mmol/L (3.5-5.1); Sodium 136 mmol/L (136-145)
[2020-08-11 20:06] LABS: Troponin 5 6HR 20.17 ng/L (0-10); Troponin 5 6HR Delta -0.83 ng/L (0-12)
[2020-08-11] MEDS: azithromycin 500 MG in sodium chloride 0.9% 250 ML 250 MG IV ×2 (20:55→21:55)
[2020-08-11] MEDS: ALPRAZolam 0.5 mg Tablet PO (20:56)
[2020-08-12] VITALS (10 sets, daily range): BP systolic 93–116; BP diastolic 59–73; PULSE 90–111; RESP 15–19; TEMP 36.6–37.5; O2SAT 90–97
[2020-08-12] MEDS: ipratropium-albuterol 3 mL Neb INHALATION ×3 (03:20→15:51)
[2020-08-12] MEDS: metoprolol tartrate 50 mg Tablet PO ×2 (04:23→15:20)
--- NOTE | 2020-08-12 06:00 | ECG_ITS ---
[facility] Test Date: 2020-08-12 Pat Name: Nalini Richardson Department: Room: 263 Gender: Female Body Wirer: : 1940 Requested By: Juan Pablo Cerna Order Number: [id number] Riya MD: Sloan Pineda M.D. Measurements Intervals [place] Rate: 84 P: 30 HI: 111 QRS: 41 QRSD: 77 T: 30 QT: 347 QTc: 411 Interpretive Statements SINUS RHYTHM WITH SHORT HI INTERVAL LOW QRS VOLTAGE IN PRECORDIAL LEADS [QRS DEFLECTION < 1.0 mV IN CHEST LEADS] MINIMAL ST DEPRESSION [0.025+ mV ST DEPRESSION] Compared to ECG 08/11/2020 17:10:26 Low QRS voltage now present ST (T wave) deviation still present Electronically Signed On 08-12-2020 18:30:28 CDT by Sloan Pineda M.D. [id number]
[2020-08-12 06:13] LABS: Basophils % 0.2 %; Eosinophils # 0.1 10^3/uL (0.0-0.8); Eosinophils % 0.6 %; Hemoglobin 9.5 g/dL (11.5-15.3); Lymphocytes # 4.5 10^3/uL (0.8-4.8); Lymphocytes % 35.3 %; Mean Corpuscular HGB Conc 32.8 g/dL (30.0-36.0); Mean Corpuscular Hemoglobin 30.7 pg (28.0-34.0); Mean Corpuscular Volume 93.9 fL (81-99); Mean Platelet Volume 9.1 fL (7.4-10.4); Monocytes # 0.8 10^3/uL (0.2-0.9); Monocytes % 6.1 %; Neutrophils # 7.27 10^3/uL (1.8-7.7); Neutrophils % 57.5 %; Nucleated Red Blood Cells % 0 %; Platelet Count 194 10^3/cmm (130-400); Red Blood Count 3.09 10^6/uL (4.1-5.3); Red Cell Distribution Width 12.9 % (12.1-15.1); White Blood Count 12.7 10^3/uL (4.0-10.0)
[2020-08-12 06:24] LABS: INR 1.12 (0.8-1.2)
[2020-08-12 06:34] LABS: C Reactive Protein 174.7 mg/L (0.0-4.9); Magnesium 1.9 mg/dL (1.7-2.3)
[2020-08-12 06:43] LABS: NT Pro B Type Natriuretic Pept 816 pg/mL (0-450)
[2020-08-12] MEDS: apixaban 5 mg Tablet PO ×2 (07:55→17:11)
[2020-08-12] MEDS: ferrous sulfate EC 325 mg Tablet PO ×2 (07:55→17:11)
[2020-08-12] MEDS: atorvastatin 40 mg Tablet 10 MG PO (07:55)
[2020-08-12] MEDS: levothyroxine 25 mcg Tablet 12.5 MCG PO (07:56)
[2020-08-12] MEDS: famotidine 20 mg Tablet PO (08:02)
[2020-08-12] MEDS: clopidogrel 75 mg Tablet PO (08:02)
[2020-08-12 08:08] LABS: Alanine Aminotransferase 32 U/L (0-33); Albumin Level 2.8 g/dL (3.5-5.2); Alkaline Phosphatase 76 IU/L (35-105); Anion Gap 15.1 (5-19); Aspartate Amino Transferase 56 U/L (0-32); Blood Urea Nitrogen 20 mg/dL (8-23); Calcium 8.1 mg/dL (8.5-10.5); Carbon Dioxide 23 mmol/L (22-29); Chloride 103 mmol/L (98-107); Globulin 2.7 g/dL (1.3-4.6); Glucose 129 mg/dL (65-115); Osmolality Calculated 290 mOsm/kg (285-295); Phosphorus 2.4 mg/dL (2.5-4.5); Potassium 3.1 mmol/L (3.5-5.1); Sodium 138 mmol/L (136-145); Total Bilirubin 0.4 mg/dL (0.15-1.2); Total Protein 5.5 g/dL (6.6-8.7)
--- NOTE | 2020-08-12 09:18 | DCPLANNER ---
Pg 2 of IM updated and reviewed with pt. No questions, copy provided.
[2020-08-12 09:26] LABS: Procalcitonin 0.29 ng/mL (0-0.5)
[2020-08-12] MEDS: potassium chloride ER 10 mEq Tablet 40 MEQ PO (09:51)
--- NOTE | 2020-08-12 10:19 | PC.CHAP ---
Pastoral Care Encounter/Spiritual Assessment Type of Contact [] Declined wood tile installation helper visit [] Patient/Family/Request visit [] Outpatient visit [] Follow-up visit [] Physician referral [] Code/Alert [x] Routine visit [] Staff referral [] Actively dying [] Patient sleeping [] Family support [] [] Out of room [] Palliative care [] [x] Receiving care in room [] Pre-surgical visit [] Trauma [] Long length of stay [] ICU visit [] Other: Relational/Emotional Strength [x] Patient feels connected with others/family/visitors/staff [] Distress [] Loneliness/isolation [] Abandonment Spirituality of Patient [x] Person of Capri [] Attends Scientologist of their Capri [x] Believes in Prayer [] Reads Bible or Yazidism materials [] There are Spiritual issues to be addressed Senior Technical Editor Interventions [x] Prayer [x] Active listening [x] Non-anxious presence [x] Spiritual/emotional support [] Crisis/trauma care [x] Spiritual counseling [] Bereavement support [] Provided bereavement packet [] Provided Bible/devotional materials [] Provided toy/stuffed animal, coloring book to patient or family member [] Provided Communion [] Anointing/[place] [] Salvation [x] Completed spiritual assessment [] Other: Impact on Illness or Injury [] Angry [x] Fearful [] Anxious [] Often cries [] Exhaustion [] Unable to work [] Unable to attend hindu [] Unable to walk/stand [] Unable to read [] Unable to drive [] Unable to eat/drink [] Unable to sleep [] Unable to be with family [] Patient intubated [] Other: Summary Will need some rehab on Hip, going to a nersing home, for while, knows what needs to be done has a good attitude, fe`els good about her recovery over time Time spent with patient 10 mins
[2020-08-12 12:50] LABS: Basophils % 0.2 %; Eosinophils # 0.1 10^3/uL (0.0-0.8); Eosinophils % 0.4 %; Hematocrit 33.8 % (37.0-47.0); Hemoglobin 10.8 g/dL (11.5-15.3); Lymphocytes # 5.2 10^3/uL (0.8-4.8); Lymphocytes % 38.3 %; Mean Corpuscular Hemoglobin 30.9 pg (28.0-34.0); Mean Corpuscular Volume 96.6 fL (81-99); Mean Platelet Volume 8.9 fL (7.4-10.4); Monocytes # 0.7 10^3/uL (0.2-0.9); Monocytes % 4.9 %; Neutrophils # 7.51 10^3/uL (1.8-7.7); Neutrophils % 55.8 %; Nucleated Red Blood Cells % 0 %; Platelet Count 229 10^3/cmm (130-400); Red Cell Distribution Width 12.9 % (12.1-15.1); White Blood Count 13.5 10^3/uL (4.0-10.0)
--- NOTE | 2020-08-12 13:59 | P.DS_ITS ---
Discharge Providers Date of Admission: 08/07/20 15:43 Date of Discharge: August 12, 2020 Attending Provider at Admission: Shana Oconnor MD Attending Provider at Discharge: Juan Pablo Cerna MD Primary Care Provider: Cris Lobo APN Diagnoses at Discharge Discharge Diagnosis (1) Closed hip fracture: Status: Deleted Qualifiers: Encounter type: initial encounter Laterality: left Qualified Code(s): S72.002A - Fracture of unspecified part of neck of left femur, initial encounter for closed fracture (2) Hypothyroidism: Status: Acute (3) Anxiety: Status: Acute (4) CAD (coronary artery disease): Status: Acute Problem details: Post PCI to LAD in 2013 (5) Ischemic cardiomyopathy: Status: Acute Problem details: Echocardiogram from 2016 shows an EF of 64% without diastolic dysfunction, moderate TR (6) HTN (hypertension): Status: Acute (7) RICH (acute kidney injury): Status: Acute (8) Postoperative confusion: Status: Acute (9) Atypical pneumonia: Status: Acute (10) Atrial fibrillation: Status: Acute Reason for Visit Reason for Visit: LEFT HIP PAIN S/P FALL Hospital Course Discharge Summary: This is a 79-year-old female with a past medical history of hypothyroidism, CAD status post PCI to LAD in 2013, hypertension, ischemic cardiomyopathy with EF of 64%, normal diastolic dysfunction, moderate tricuspid regurg in 2015, with recent history of pneumonia in October, who nightly uses 2 L nasal cannula, who presents to [facility] with a mechanical fall and left hip pain. Patient was admitted to [facility] for closed subcapital fracture of left hip, secondary to mechanical fall, status post bipolar hip arthroplasty by Dr. Anderson, tolerated surgical procedure well, discharged on pain control [place], anticoagulation Eliquis, with follow-up Dr. Anderson as outpatient, discharged to shelter for short-term rehab. Patient's postoperative course was complicated by: 1.)Postoperative confusion multifactorial related to UTI, pneumonia, atrial fibrillation, dementia, prolonged hospital stay. On discharge patient's mentation returned back to baseline, alert oriented x4, answering all questions appropriate, following all commands, neurologically intact. 2.) Postoperative UTI, E. coli, managed as inpatient with IV antibiotics, discharged on Levaquin 3.) Postoperative pneumonia with low-grade fevers and increased oxygen requirements, CT of the chest showed diffuse groundglass opacities, concerning for atypical infectious process, managed as inpatient with IV antibiotics, clinically improved, discharged on Levaquin, and on 3 L nasal cannula 4.) Fluid overload, due to increased oxygen requirements, managed with inpatient intermittent diuresis, discharged on 3 remaining days of Lasix and potassium replacement 5.) New onset atrial fibrillation, secondary to postoperative state, and pneumonia. However patient tells me that she has had chest palpitations as outpatient for many years, symptoms come and go, she does feel short of breath with symptoms, but they typically terminate on their own, she has not sought medical advice for the symptoms; her CT of head does show chronic lacunar infarct anterior limb left internal capsule concerning for embolic phenomenon al though no neurologic deficits reported.This all leads me to believe that she likely has paroxysmal atrial fibrillation as outpatient for some period of time. Thus likely while inpatient we were to recognize atrial fibrillation on telemetry, heart rates in the 170s, I was not able to capture it on EKG, but it was evident on telemetry. Managed through metoprolol 50 twice daily, Eliquis 5 mg twice daily. Patient converted into normal sinus rhythm, remained normal sinus rhythm, heart rates 100s to 110. Discharged on metoprolol 50 mg twice daily. In addition she was discharged on Eliquis 5 mg twice daily, hemoglobin on discharge was 10.8, shelter advised to monitor for bloody or black stools, monitor hemoglobin, as I am worried as she is on both Eliquis and Plavix. Patient should follow-up with cardiology in 1 week. Of note patient had a repeat CT of her head when she developed atrial fibrillation, during her hospitalization to ensure she did not have any an embolic stroke given her altered mental status as above. Repeat CT of the head was negative for acute stroke, negative for intracranial hemorrhage, she remained neurologically intact, no focal neurologic deficits 6.) Type II NSTEMI: Minimally elevated troponins, 6-hour 20.7, delta 0.83, no reported chest pain, EKG did show minimal ST depressions in anterior chest leads. Likely supply demand ischemia, type II NSTEMI, but cannot rule out underlying cardiac etiology given risk factors and cardiovascular history no chest pain events during hospitalization, she is on Plavix due to aspirin allergy, on a statin. On Eliquis as above. On metoprolol as above. She does have a significant cardiac history, echo cardiogram was pending on discharge. Patient was advised to follow-up with cardiology in 1 week 7.) Patient was found to have a 1 cm right lower lobe nodule, suspicious for malignancy, discussed with patient, voiced understanding, all questions answered. Patient does have smoking history and history of COPD. Patient will need to follow-up with Dr. Quiles in 1 month for consideration of biopsy. Physical Exam Urinary Catheter Management^: Wright: Cath Placed During This Visit: yes, but has since been removed by the nurse Reason for Continuing Indwelling Catheter: Other Urinary Catheter Date of Insertion: 08/10/20 Urinary Catheter Time of Insertion: 08:42 Date Urinary Catheter Removed: 08/10/20 Time Urinary Catheter Discontinued: 08:00 Discharge Data Data Completed and Pending: Completed Studies During Hospitalization Category Date Time Status CT angio chest PE protcl [id number] Rout ine Cat Scan 08/10/20 13:[address] head wo con* 7 0450 Stat Cat Scan 08/07/20 13:[address] head wo con* 7 0450 Stat Cat Scan 08/11/20 14:52 Completed XR chest 1V kathryn ble [id number] Routine Exams 08/10/20 10:47 Completed XR chest 1V kathryn ble [id number] Stat Exams 08/07/20 13:49 Completed XR hip LT 2-3V wo /w pel* [id number] Stat Exams 08/07/20 13:48 Completed XR hip RT 1V wo/w pel [id number] Routine Exams 08/09/20 15:11 [place] [id number] Routin e Ultrasound 08/10/20 13:08 Completed Pending at discharge Category Date Time Status Blood Culture Sta t Lab 08/07/20 22:05 Results C Reactive Protei n AM LABS Lab 08/13/20 04:00 Ordered Complete Blood Co unt w/Auto AM LABS Lab 08/13/20 04:00 Ordered Complete Blood Co unt w/Auto AM LABS Lab 08/14/20 04:00 Ordered Comprehensive Met abolic Panel AM LA BS Lab 08/13/20 04:00 Ordered Comprehensive Met abolic Panel AM LA BS Lab 08/14/20 04:00 Ordered Magnesium AM LABS Lab 08/13/20 04:00 Ordered Magnesium AM LABS Lab 08/13/20 04:00 Ordered Magnesium AM LABS Lab 08/14/20 04:00 Ordered NT Pro B Type Sherice riuretic Pept QAM Lab 08/13/20 06:00 Ordered NT Pro B Type Sherice riuretic Pept QAM Lab 08/13/20 06:00 Ordered NT Pro B Type Sherice riuretic Pept QAM Lab 08/14/20 06:00 Ordered Phosphorus AM LAB S Lab 08/13/20 04:00 Ordered Phosphorus AM LAB S Lab 08/14/20 04:00 Ordered Procalcitonin AM LABS Lab 08/13/20 04:00 Ordered Prothrombin Time INR AM LABS Lab 08/13/20 04:00 Ordered Prothrombin Time INR AM LABS Lab 08/14/20 04:00 Ordered Vitamin D 1,25 Di hydroxy Routine Lab 08/07/20 14:35 Received CV echo complete* [id number] Routine Ultrasound 08/11/20 12:07 Taken Labs from last 24 hours 08/12/20 08/12/20 08/12/20 12:27 05:38 05:38 WBC 13.5 H RBC 3.50 L Hgb 10.8 L Hct 33.8 L MCV 96.6 MCH 30.9 MCHC 32.0 RDW 12.9 Plt Count 229 MPV 8.9 Neut % (Auto) 55.8 Lymph % (Auto) 38.3 Benson % (Auto) 4.9 Eos % (Auto) 0.4 Baso % (Auto) 0.2 Neut # (Auto) 7.51 Lymph # (Auto) 5.2 H Benson # (Auto) 0.7 Eos # (Auto) 0.1 Baso # (Auto) 0.0 Nucleated RBC % (a uto) 0 Nucleated RBCs # 0.0 PT 14.80 INR 1.12 Sodium Potassium Chloride Carbon Dioxide Anion Gap BUN Creatinine GFR Calculation Glucose Calculated Osmolal ity Calcium Phosphorus Magnesium Total Bilirubin AST ALT Alkaline Phosphata se Troponin T Baselin e Troponin T 120 Min [place] Delta Troponin T Troponin T Hi Sens 6Hr Troponin T Hi Sens 6Hr Delta C-Reactive Protein NT-Pro-B Natriuret Pep 816 H Total Protein Albumin Globulin Procalcitonin 08/12/20 08/12/20 08/12/20 05:38 05:38 05:38 WBC 12.7 H RBC 3.09 L Hgb 9.5 L Hct 29.0 L MCV 93.9 MCH 30.7 MCHC 32.8 RDW 12.9 Plt Count 194 MPV 9.1 Neut % (Auto) 57.5 Lymph % (Auto) 35.3 Benson % (Auto) 6.1 Eos % (Auto) 0.6 Baso % (Auto) 0.2 Neut # (Auto) 7.27 Lymph # (Auto) 4.5 Benson # (Auto) 0.8 Eos # (Auto) 0.1 Baso # (Auto) 0.0 Nucleated RBC % (a uto) 0 Nucleated RBCs # 0.0 PT INR Sodium 138 Potassium 3.1 L Chloride 103 Carbon Dioxide 23 Anion Gap 15.1 BUN 20 Creatinine 0.6 GFR Calculation Not Reportable Glucose 129 H Calculated Osmolal ity 290 Calcium 8.1 L Phosphorus 2.4 L Magnesium Total Bilirubin 0.4 AST 56 H ALT 32 Alkaline Phosphata se 76 Troponin T Baselin e Troponin T 120 Min [place] Delta Troponin T Troponin T Hi Sens 6Hr Troponin T Hi Sens 6Hr Delta C-Reactive Protein NT-Pro-B Natriuret Pep Cancelled Total Protein 5.5 L Albumin 2.8 L Globulin 2.7 Procalcitonin 0.29 08/12/20 08/11/20 08/11/20 05:38 18:52 18:52 WBC RBC Hgb Hct MCV MCH MCHC RDW Plt Count MPV Neut % (Auto) Lymph % (Auto) Benson % (Auto) Eos % (Auto) Baso % (Auto) Neut # (Auto) Lymph # (Auto) Benson # (Auto) Eos # (Auto) Baso # (Auto) Nucleated RBC % (a uto) Nucleated RBCs # PT INR Sodium 136 Potassium 3.4 L Chloride 101 Carbon Dioxide 20 L Anion Gap 18.4 BUN 18 Creatinine 0.9 GFR Calculation Not Reportable Glucose 223 H Calculated Osmolal ity 291 Calcium 8.6 Phosphorus Magnesium 1.9 Total Bilirubin AST ALT Alkaline Phosphata se Troponin T Baselin e Troponin T 120 Min [place] Delta Troponin T Troponin T Hi Sens 6Hr 20.17 H Troponin T Hi Sens 6Hr Delta -0.83 L C-Reactive Protein 174.7 H NT-Pro-B Natriuret Pep Total Protein Albumin Globulin Procalcitonin 08/11/20 08/11/20 08/11/20 15:28 13:09 13:09 WBC RBC Hgb Hct MCV MCH MCHC RDW Plt Count MPV Neut % (Auto) Lymph % (Auto) Benson % (Auto) Eos % (Auto) Baso % (Auto) Neut # (Auto) Lymph # (Auto) Benson # (Auto) Eos # (Auto) Baso # (Auto) Nucleated RBC % (a uto) Nucleated RBCs # PT INR Sodium 137 Potassium 2.9 L Chloride 102 Carbon Dioxide 19 L Anion Gap 18.9 BUN 17 Creatinine 0.7 GFR Calculation Not Reportable Glucose 167 H Calculated Osmolal ity 289 Calcium 8.6 Phosphorus Magnesium Total Bilirubin AST ALT Alkaline Phosphata se Troponin T Baselin e 21 H Troponin T 120 Min [place] 22.48 H Delta Troponin T 1.48 Troponin T Hi Sens 6Hr Troponin T Hi Sens 6Hr Delta C-Reactive Protein NT-Pro-B Natriuret Pep Total Protein Albumin Globulin Procalcitonin Vitals: Last Vital Signs Temp 99.1 F 08/12/20 12:00 Pulse 107 H 08/12/20 12:00 Resp 15 08/12/20 12:00 BP 93/61 08/12/20 12:00 Pulse Ox 95 08/12/20 12:00 Discharge Plan Discharge Patient Disposition: Xfer SNF Condition: Stable Prescriptions: New levothyroxine 25 mcg Tablet 25 mcg PO DAILY 30 Days Qty: 30 RF: 0 Eliquis 5 mg Tablet 5 mg PO BID 30 Days Qty: 60 RF: 0 hydrocodone-acetaminophen 5-325 mg Tablet 1 tab PO Q4H PRN (Reason: Breakthrough Pain) 7 Days Qty: 30 RF: 0 metoprolol tartrate 50 mg Tablet 50 mg PO Q12H 30 Days Qty: 60 RF: 0 levofloxacin 750 mg tablet 750 mg PO DAILY 7 Days Qty: 7 RF: 0 Lasix 20 mg tablet 20 mg PO DAILY 3 Days Qty: 3 RF: 0 Klor-Con M20 20 mEq tablet,ER particles/crystals 20 meq PO BID 3 Days Qty: 6 RF: 0 albuterol sulfate 90 mcg/actuation HFA aerosol inhaler 1 inh INHALATION Q6H PRN (Reason: shortness of breath or wheezing) Qty: 18 RF: 0 Advair Diskus 100-50 mcg/dose blister with device 1 inh INHALATION Q12H Qty: 60 RF: 0 ferrous sulfate 325 mg (65 mg iron) Tablet,Delayed Release (Dr/Ec) 325 mg PO BIDWM 30 Days Qty: 60 RF: 0 Continued clopidogrel [Plavix] 75 mg tablet 75 mg PO DAILY RF: 0 nitroglycerin [Nitrostat] 0.4 mg tablet, sublingual 0.4 mg SUBLINGUAL Q5M PRN (Reason: Chest Pain) RF: 0 meclizine 25 mg tablet 25 mg PO DAILY PRN (Reason: Dizziness) RF: 0 alprazolam [Xanax] 0.5 mg tablet 0.5 mg PO QID PRN (Reason: Anxiety) RF: 0 amitriptyline 50 mg tablet 50 mg PO DAILY RF: 0 simvastatin 40 mg tablet 40 mg PO DAILY 90 Days Qty: 90 RF: 3 Discontinued dipyridamole 75 mg tablet 75 mg PO BID RF: 0 metoprolol tartrate 25 mg tablet See Rx Instructions PO .COMPLEX Qty: 135 RF: 3 Discharge Orders: Discharge Order (Routine); Ordered 08/12/20 Ordered By: Juan Pablo Cerna Other Ambulatory Orders: Complete Blood Count w/Auto (Routine) Timeframe: 1 Day Location: Determined by Patient Ordered By: Juan Pablo Cerna Comprehensive Metabolic Panel (Routine) Timeframe: 1 Day Facility: [facility] - Location: Lab - Main Lab Ordered By: Juan Pablo Cerna Thyroid Stimulating Hormone (Routine) Timeframe: 1 Month Facility: [facility] - Location: Lab - Main Lab Ordered By: Juan Pablo Cerna Referrals: [facility] [Outside] Beryl Bustillo MD [Physician] - 1 week Marcelo Anderson MD [Physician] - 1 week Adarsh Quiles MD [Physician] - 1 month Lobo,KIP Lynch [Primary Care Provider] - Discharge Diet: Cardiac Discharge Activity: Resume usual activity Activity Restrictions/Additional Instructions: -Patient was started on Eliquis for atrial fibrillation, please monitor hemoglobin closely, monitor for bloody or black stools -Please have patient follow with Dr. Anderson, PT OT -Please have patient follow-up with cardiology for atrial fibrillation -Please have patient follow-up with Dr. 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
--- NOTE | 2020-08-12 17:28 | P.PN_ITS ---
Subjective Subjective: Interval history: Patient up in chair without complaints Vitals/I&O/Wt Last Vital Signs Temp 99.5 F 08/12/20 15:48 Pulse 100 08/12/20 16:36 Resp 18 08/12/20 16:36 BP 112/73 08/12/20 15:48 Pulse Ox 93 08/12/20 16:36 08/12/20 08/12/20 08/12/20 06:59 14:59 22:59 Intake Total 200 / 700 840 / 840 Balance 200 / 700 840 / 840 Physical Exam Narrative: EXAM NARRATIVE: Left hip dressing clean and dry. Minimal swelling thigh Urinary Catheter Management^: Wright: Cath Placed During This Visit: yes, but has since been removed by the nurse Reason for Continuing Indwelling Catheter: Other Urinary Catheter Date of Insertion: 08/10/20 Urinary Catheter Time of Insertion: 08:42 Date Urinary Catheter Removed: 08/10/20 Time Urinary Catheter Discontinued: 08:00 Data : 08/12/20 12:27 08/12/20 05:38 A&P Assessment and plan (1) Postoperative state: Discharge to a fpc. Follow-up with me in 2 weeks. 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
[2020-08-15 14:08] LABS: Vit D 1,25 (Oh)2, Total 19 pg/mL (18-72); Vit D2 1,25 (Oh)2 <8 pg/mL; Vit D3 1,25 (Oh)2 19 pg/mL
== END 2020-08-12 17:00 | disposition skilled nursing facility (03) | DRG 521 ==
LOC: ER 15:46 → MEDSURG 16:32
PROVIDERS: Emergency Medicine; Orthopaedic Surgery; Student in an Organized Health Care Education/Training Program; Admitting Provider Student in an Organized Health Care Education/Training Program; Family Provider Nurse Practitioner Family; PCP Nurse Practitioner Family; Visit Provider Family Medicine
PROC: 0SRS0J9 Replacement of Left Hip Joint, Femoral Surface with Synthetic Substitute, Cemented, Open Approach (ICD-10-PCS; CPT 27125; principal; 2020-08-09 12:45)
DX: S72.012A Unspecified intracapsular fracture of left femur, initial encounter for closed fracture (principal); I21.A1 Myocardial infarction type 2; J18.9 Pneumonia, unspecified organism; N17.9 Acute kidney failure, unspecified; N39.0 Urinary tract infection, site not specified; W10.8XXA Fall (on) (from) other stairs and steps, initial encounter; E03.9 Hypothyroidism, unspecified; I25.10 Atherosclerotic heart disease of native coronary artery without angina pectoris; Z95.5 Presence of coronary angioplasty implant and graft; I10 Essential (primary) hypertension; I25.5 Ischemic cardiomyopathy; I07.1 Rheumatic tricuspid insufficiency; Z99.81 Dependence on supplemental oxygen; F41.9 Anxiety disorder, unspecified; K21.9 Gastro-esophageal reflux disease without esophagitis; I25.2 Old myocardial infarction; E78.5 Hyperlipidemia, unspecified; Z87.891 Personal history of nicotine dependence; Z66 Do not resuscitate; E86.0 Dehydration; Z87.01 Personal history of pneumonia (recurrent); R60.0 Localized edema; B96.20 Unspecified Escherichia coli [E. coli] as the cause of diseases classified elsewhere; R41.0 Disorientation, unspecified; Z79.02 Long term (current) use of antithrombotics/antiplatelets; R91.1 Solitary pulmonary nodule; F03.90 Unspecified dementia, unspecified severity, without behavioral disturbance, psychotic disturbance, mood disturbance, and anxiety; I48.91 Unspecified atrial fibrillation
CPT/HCPCS: 12345; 36415; 51702; 70450; 71045; 71275; 73501; 73502; 80048; 80053; 80061; 81001; 82306; 82652; 83036; 83540; 83550; 83735; 83880; 84100; 84145; 84439; 84443; 84481; 84484; 85025; 85610; 85730; 86140; 87040; 87077; 87086; 87186; 87426; 87641; 90471; 90686; 90732; 93005; 93306; 93970; 94640; 94664; 96372; 96375; 97110; 97116; 97161; 97166; 97530; 97535; 99284; C1776; J0456; J0690; J0696; J1170; J1580; J1650; J1940; J2270; J2405; J2710; J2765; J3010; J3480; J3490; J7030; J7050; Q9967

== ENCOUNTER → 2020-09-27 09:59 | Outpatient (BNVA) | payer MEDICARE, OTHER, SELFPAY | PROVIDERS: Family Provider Nurse Practitioner Family; PCP Nurse Practitioner Family; Visit Provider Orthopaedic Surgery | DX: Z48.89 Encounter for other specified surgical aftercare (principal) | CPT/HCPCS: 73502 ==

== ENCOUNTER → 2021-12-21 10:58 | Outpatient (BNVA) | payer MEDICARE, OTHER, SELFPAY | PROVIDERS: Family Provider Nurse Practitioner Family; PCP Nurse Practitioner Family; Visit Provider Orthopaedic Surgery | DX: M25.552 Pain in left hip (principal); Z96.642 Presence of left artificial hip joint | CPT/HCPCS: 73502 ==

== ENCOUNTER → 2022-01-12 14:35 | Outpatient (BNVA) | payer MEDICARE, OTHER, SELFPAY | PROVIDERS: Family Provider Nurse Practitioner Family; PCP Nurse Practitioner Family; Visit Provider Internal Medicine Pulmonary Disease | DX: I25.10 Atherosclerotic heart disease of native coronary artery without angina pectoris (principal); J44.9 Chronic obstructive pulmonary disease, unspecified; R91.1 Solitary pulmonary nodule; I25.5 Ischemic cardiomyopathy; I48.91 Unspecified atrial fibrillation; Z87.891 Personal history of nicotine dependence | CPT/HCPCS: 99204 ==

== ENCOUNTER 2022-01-20 13:54 | Outpatient (CLI) | payer MEDICARE, OTHER, SELFPAY ==
--- NOTE | 2022-01-20 14:00 | CT_ITS ---
WS: [id number] Exam: CT chest wo con [id number] Date/Time of Exam: 01/20/2022 2:00 PM Reason For Exam: f/u lung nodule, prior to PET/CT DLP: 576.[address] scans at [facility] use at least one of these dose optimization techniques: automated e xposure control; mA and/or kV adjustment per patient size (includes targeted exams where dose is matc hed to clinical indication); or iterative reconstruction. Comparison made to prior study 08/10/2020. Enlarging pulmonary nodule in the right lower lobe now measures 1. 4 cm at greatest diameter as oppos ed to 1 cm on the prior study. This is suspicious for a malignant nodule. No other discrete suspiciou s lung lesions are noted. Mild central lobar emphysematous changes. The airway is patent. The thoraci c aorta is normal in caliber. A subcentimeter anterior left pericarinal lymph node is noted that jazmin ures slightly over 8 mm at greatest diameter. No other lymphadenopathy noted. No pleural or pericardi al effusion. The airway is patent. Coronary artery calcifications noted. No destructive bone lesions. Several old left rib fractures. The chest wall is intact. Normal thyroid tissue. CT sections the upp er abdomen show cholelithiasis. CT/CT chest wo con [id number] IMPRESSION: 1. Enlarging 1.4 cm nodular density in the right lower lobe suspicious for ilir gnancy. 2. Central lobar emphysematous changes noted. 3. No significant lymphadenopathy in the chest. 4. Cholelithiasis.
== END 2022-01-20 13:55 | disposition home or self-care (01) ==
LOC: RAD 14:02
PROVIDERS: PCP Nurse Practitioner Family; Visit Provider Internal Medicine Pulmonary Disease
DX: R91.1 Solitary pulmonary nodule (principal); K80.20 Calculus of gallbladder without cholecystitis without obstruction
CPT/HCPCS: 71250

== ENCOUNTER 2022-02-14 05:55 | Day surgery (SDC) | payer MEDICARE, OTHER, SELFPAY ==
[2022-02-13 09:52] VITALS: BMI 21.6
[2022-02-14] VITALS (11 sets, daily range): BP systolic 117–163; BP diastolic 62–100; PULSE 69–80; RESP 16–18; TEMP 36.1–36.4; O2SAT 83–100
--- NOTE | 2022-02-14 | CT_ITS ---
Guided Bronchoscopy Planning CT images; total exam DLP: 866.81 mGy-cm MTDD
[2022-02-14] MEDS: sodium chloride 0.9% 1,000 ML 30 ML IV (06:39)
--- NOTE | 2022-02-14 06:55 | P.ANESASSM_ITS ---
Pre-Anesthetic Assessment Height/Weight: Height 1.68 m Weight 60.781 kg Temp Pulse Resp BP Pulse Ox 97.5 F L 70 18 163/100 98 02/14/22 06:43 02/14/22 06:43 02/14/22 06:43 02/14/22 06:43 02/14/22 06:43 Preop Diagnosis: Suspected lung cancer Operation Date: 02/14/22 07:00 Proposed Procedures p Ebus(Not Applicable) - Napoleon Hutchison MD s Veran(Not Applicable) - Napoleon Hutchison MD Familial anesthetic complications: None Was Beta Susanna taken within 24 hours: N/A Was Clonidine taken within 24 hours: N/A Last intake: Intake Last Liquid Date 02/13/22 Last Liquid Time 18:30 Last Solid Date 02/13/22 Last Solid Time 18:30 Social Tobacco and No alcohol Exam alert, oriented x 3, clear to auscultation bilaterally and regular rate & rhythm coarse breath sounds b/l Airway Mallampati: Class II Dentition: partials Pulmonary Chronic Obstructive Pulmonary Disease suspected lung cancer CV/HEM Atrial Fibrillation, Coronary Artery Disease and Hypertension None reported Hepatic None reported GI None reported Metabolic Hyperlipidemia and Thyroid Disease [facility] None reported Neuropsych None reported Anesthetic Plan ASA status: 2 Anesthesia: General Medications/Allergies Home Medications Medication Instructions Recorded Confirmed Last Taken Type alprazolam 0.5 mg tablet (Xanax) 0.5 mg PO QID PRN tab 02/09/20 02/14/22 02/14/22 History amitriptyline 50 mg tablet 50 mg PO DAILY 02/09/20 02/14/22 02/13/22 History meclizine 25 mg tablet 25 mg PO DAILY PRN 02/09/20 02/14/22 02/13/22 History albuterol sulfate 90 mcg/actuation 1 inh INHALATION Q6H PRN #18 gm 02/04/21 02/14/22 02/14/22 Rx aerosol inhaler clopidogrel 75 mg tablet (Plavix) 75 mg PO DAILY #90 tab 10/31/21 02/14/22 02/06/22 Rx metoprolol tartrate 25 mg tablet 25 mg PO DIRECTED #135 tab 10/31/21 02/14/22 02/14/22 Rx nitroglycerin 0.4 mg sublingual 0.4 mg SUBLINGUAL Q5M PRN #25 tab 10/31/21 02/14/22 Unknown Rx tablet (Nitrostat) simvastatin 40 mg tablet 40 mg PO DAILY #90 tab 10/31/21 02/14/22 02/13/22 Rx umeclidinium 62.5 mcg-vilanterol 1 inh INHALATION DAILY #60 ea 01/17/22 02/14/22 02/13/22 Rx 25 mcg/actuation powdr for inhalation (Anoro Ellipta) Allergies Allergy/AdvReac Type Severity Reaction Status Date / Time aspirin Allergy Unknown Unknown Verified 02/14/22 06:41 lisinopril Allergy Unknown unknown Verified 02/14/22 06:41 morphine Allergy Unknown Unknown Verified 02/14/22 06:41 Current Medications Generic Name Dose Route Start Last Admin Trade Name Freq PRN Reason Stop Dose Admin Sodium Chloride 1,000 mls @ 30 mls/hr 02/14/22 06:00 02/14/22 06:39 Sodium Chloride 0.9% IV 02/15/22 05:59 30 mls/hr .Q24H MAUDE Administration PFSH Anesthesia Medical History Anxiety CAD (coronary artery disease) Post PCI to LAD in 2013 GERD (gastroesophageal reflux disease) History of DE (myocardial infarction) HTN (hypertension) Hyperlipidemia Hypothyroidism Ischemic cardiomyopathy Echocardiogram from 2016 shows an EF of 64% without diastolic dysfunction, moderate TR Surgical History S/P angioplasty with stent S/P appendectomy S/P hysterectomy Family History Other Cancer Hypertension Social History Smoking and tobacco status: former smoker Quit status (tobacco): has quit using tobacco Year quit tobacco: 2013 Former quit date comment: 2ppd x 53years Alcohol intake: never Lives independently: Yes Housing: House Marital status: / Data Anesthesia Cardiac Studies: Echocardiogram Ultrasound 08/11/20
--- NOTE | 2022-02-14 07:00 | PM.OPSURHP ---
Providers/Chief Complaint Admitting Physician: Napoleon Hutchison MD Primary Care Provider: Cris Lobo APN Chief Complaint: Enlarging 1.4 cm nodular density in the right lower lobe suspicious for malignancy on ct chest and PET active suspicious for malignancy in chronic smoker History of Present Illness I have seen Ms. Nalini Richardson Was initially seen in pulmonary clinic on 01/12/2022. She is a 81-year-old female with past medical history of COPD, atrial fibrillation, hypothyroidism, CAD s/p PCI to LAD in 2013, ischemic cardiomyopathy EF 65% without diastolic dysfunction moderate TR in 2019, hypertension referred by Dr. Bustillo for COPD and SOB, persistent cough.She has significant smoking history 2 pack/day x53 years quit October 2013. Upon review of records patient had a CT chest during her admission for left hip surgery July 2020 which showed 1 cm right lower lobe nodule suspicious for malignancy.? Patient vaguely remembers that it was mentioned by the physician who took care of her during the admission and she was supposed to follow-up with manufacturing technology analyst after her discharge.? She never followed up. I repeated CT chest 01/20/2022 which showed enlarging 1.4 cm nodular density in right lower lobe suspicious for malignancy. Subsequent PET CT scan showed 1.4 x 1.2 cm solid lesion in superior segment of right lower lobe with SUV 9.8 and high probability of malignancy. Roughly 1.4 cm inferior right hilar node has an SUV 5.1 suspicious for local metastatic disease. Equivocal activity in left adrenal. Patient was on Plavix which was held for 1 week. Today patient is scheduled for navigational bronchoscopy guided transbronchial biopsies of right lower lobe nodule and endobronchial ultrasound-guided biopsy of right inferior hilar node. And control of bleeding. In the preop area patient denied any new complaints. Medications/Allergies Home Medications Medication Instructions Recorded Confirmed Last Taken Type alprazolam 0.5 mg tablet (Xanax) 0.5 mg PO QID PRN tab 02/09/20 02/14/22 02/14/22 History amitriptyline 50 mg tablet 50 mg PO DAILY 02/09/20 02/14/22 02/13/22 History meclizine 25 mg tablet 25 mg PO DAILY PRN 02/09/20 02/14/22 02/13/22 History albuterol sulfate 90 mcg/actuation 1 inh INHALATION Q6H PRN #18 gm 02/04/21 02/14/22 02/14/22 Rx aerosol inhaler clopidogrel 75 mg tablet (Plavix) 75 mg PO DAILY #90 tab 10/31/21 02/14/22 02/06/22 Rx metoprolol tartrate 25 mg tablet 25 mg PO DIRECTED #135 tab 10/31/21 02/14/22 02/14/22 Rx nitroglycerin 0.4 mg sublingual 0.4 mg SUBLINGUAL Q5M PRN #25 tab 10/31/21 02/14/22 Unknown Rx tablet (Nitrostat) simvastatin 40 mg tablet 40 mg PO DAILY #90 tab 10/31/21 02/14/22 02/13/22 Rx umeclidinium 62.5 mcg-vilanterol 1 inh INHALATION DAILY #60 ea 01/17/22 02/14/22 02/13/22 Rx 25 mcg/actuation powdr for inhalation (Anoro Ellipta) Allergies Allergy/AdvReac Type Severity Reaction Status Date / Time aspirin Allergy Unknown Unknown Verified 02/14/22 06:41 lisinopril Allergy Unknown unknown Verified 02/14/22 06:41 morphine Allergy Unknown Unknown Verified 02/14/22 06:41 PFSH PFSH: Medical History Anxiety CAD (coronary artery disease) Post PCI to LAD in 2013 GERD (gastroesophageal reflux disease) History of MT (myocardial infarction) HTN (hypertension) Hyperlipidemia Hypothyroidism Ischemic cardiomyopathy Echocardiogram from 2016 shows an EF of 64% without diastolic dysfunction, moderate TR Surgical History S/P angioplasty with stent S/P appendectomy S/P hysterectomy Family History Other Cancer Hypertension Social History Smoking and tobacco status: former smoker Quit status (tobacco): has quit using tobacco Year quit tobacco: 2013 Former quit date comment: 2ppd x 53years Alcohol intake: never Lives independently: Yes Housing: House Marital status: / Vital Signs Vitals Signs: Last Vital Signs Temp 97.5 F L 02/14/22 06:43 Pulse 70 02/14/22 06:43 Resp 18 02/14/22 06:43 BP 163/100 02/14/22 06:43 Pulse Ox 98 02/14/22 06:43 Weight: Weight last 48 hrs Weight 134 lb Physical Exam Narrative: EXAM NARRATIVE: General: alert, NAD HEENT: conj clear, EOMI, PERRL, mmm, Neck: supple, no meningismus Heme: no cervical LAP Pulmonary: CTAB, no wheezing, rhonchi, crackles Cardiovascular: rrr, nl s1s2, no mrg Abdomen: soft, nt, nd, no r/g, bs+ Extremities: pulses +, no edema, no c/c : no CVA tenderness Skin: intact, no rash MSK: no back or neck pain Neurologic: grossly intact A&P Assessment and plan (1) Right lower lobe pulmonary nodule: Status: Acute (2) Atrial fibrillation: Status: Acute (3) Ex-smoker: Status: Acute Plan #1.4 cm right lower lobe nodule with SUV 9.8 #1.4 cm right inferior hilar lymph node with SUV 5.1 # Ex-smoker 2 pack/day for 53 years quit 2013 #COPD -Scheduled for navigational bronchoscopy guided transbronchial biopsies of right lower lobe nodule and endobronchial ultrasound-guided biopsy of right inferior hilar node and control of bleeding today. -Nature of the procedure, risks Including bleeding and pneumothorax, alternatives-everything explained in detail to the patient and her son and they agreed to go for the procedure. -Anesthesia team to help with appropriate sedation and anesthesia -Patient to follow-up in 7 to 10 days for biopsy results Coding Level of Care Code New Pt Acute Glass Decorator for Chg Fwd Patient Type New History Comprehensive Exam Comprehensive Medical Decision Making High Complexity Diagnoses Right lower lobe pulmonary nodule R91.1 Atrial fibrillation I48.91 Ex-smoker Z87.891 Time Spent (min) 20
[2022-02-14] MEDS: lidocaine 1% INJ 20 mL XX (07:36)
--- NOTE | 2022-02-14 09:46 | XR_ITS ---
WS: [id number] Portable AP upright chest, 02/14/2022 Clinical Data: post bronchoscopy Comparison: Portable chest, 08/10/2020. Findings: No nodules, masses or effusions are seen. The heart is normal. The pulmonary vascularity is not increased. No pneumonia or pneumothorax is seen. There is patchy left lower lobe opacity which p robably represent atelectasis. The aortic arch and descending thoracic aorta show tortuosity. XR/XR chest 1V portable [id number] Impression: 1. Atherosclerosis. 2. Minimal patchy atelectasis in left lower lobe most consistent with atelectas is.
--- NOTE | 2022-02-14 10:27 | PM.OP ---
Operative Report Date of procedure: February 14, 2022 Pre-op diagnosis: Preop Diagnosis Suspected lung cancer Post-op findings: atypical cells identified on MARK from station 7 Procedure done: Bronchoscopy with air way inspection, obtained Broncheoalveolar lavage from right upper lobe, Endobronchial ultrasound-guided biopsy of right inferior hilar node 11R and station 7 and control of bleeding. Surgeon: Napoleon Hutchison MD Brief History: Ms. Nalini Richardson Was initially seen in pulmonary clinic on 01/12/2022. She is a 81-year-old female with past medical history of COPD, atrial fibrillation, hypothyroidism, CAD s/p PCI to LAD in 2013, ischemic cardiomyopathy EF 65% without diastolic dysfunction moderate TR in 2019, hypertension referred by Dr. Bustillo for COPD and SOB, persistent cough.She has significant smoking history 2 pack/day x53 years quit October 2013. Upon review of records patient had a CT chest during her admission for left hip surgery July 2020 which showed 1 cm right lower lobe nodule suspicious for malignancy.? Patient vaguely remembers that it was mentioned by the physician who took care of her during the admission and she was supposed to follow-up with bobbin loose end finder after her discharge.? She never followed up. I repeated CT chest 01/20/2022 which reported enlarging 1.4 cm nodular density in right lower lobe suspicious for malignancy. Subsequent PET CT scan reported 1.4 x 1.2 cm solid lesion in superior segment of right lower lobe with SUV 9.8 and high probability of malignancy.? Roughly 1.4 cm inferior right hilar node has an SUV 5.1 suspicious for local metastatic disease.? Equivocal activity in left adrenal. I reviewed CT chest image as well as PET/CT imaging with Dr. Emery radiologist-we both agreed that the lesion may have been along the fissure in right upper lobe. Today patient is scheduled for navigational bronchoscopy guided transbronchial biopsies of right lower lobe nodule and endobronchial ultrasound-guided biopsy of right inferior hilar node.? And control of bleeding. Procedure: Name of the procedure: Bronchoscopy with air way inspection, obtained Broncheoalveolar lavage from right upper lobe, Endobronchial ultrasound-guided biopsy of right inferior hilar node 11R and station 7 and control of bleeding. Indication: 1.4 x 1.2 cm solid lesion in superior segment of right lower lobe with SUV 9.8 and high probability of malignancy.? Roughly 1.4 cm inferior right hilar node has an SUV 5.1 suspicious for local metastatic disease.? Anesthesia: General anesthesia. Local anesthesia: The sam in the right and left mainstem bronchi were anesthetized with 1% lidocaine, 3 mL. Description of the procedure: The procedure was explained to the patient and the consent was obtained. The patient was brought to the OR. The patient underwent endotracheal intubation for general anesthesia. Following induction of general anesthesia, the bronchoscope was advanced through the ET tube. The lower trachea appeared to be normal, no endotracheal lesion was seen. The sam was sharp. The sam, the right and left mainstem bronchi are anesthetized with 1% lidocaine. In a systematic manner bilateral bronchial tree was then examined. The bronchoscope was advanced into the left mainstem bronchus. The left upper lobe, lingula and left lower lobe bronchi were examined up to the third subsegmental level and no abnormalities were identified. There is no endobronchial lesion, active bleeding or mucous plug. The bronchoscope was then introduced into the right mainstem bronchus. The right upper lobe, right middle lobe and right lower lobe bronchi were examined up to the third subsegmental level and no definite endobronchial lesions were identified. Using navigational bronchoscopy-the lesion was mapped and airway from posterior right upper lobe appeared to take us close to the lesion. But in reality there was no airway entire lesion and tried moving the needle in all subsegments of right upper lobe as well as superior segment of right lower lobe but none of the airways with taking me close to the lesion and hence could not take any transbronchial biopsies. Endobronchial ultrasound was introduced and was able to identify lymph node at stations 11 R as well as a station 7. Transbronchial needle aspiration for cytology were taken from those stations and sent for histopathology. Rapid onset evaluation by pathologist reported atypical cells likely malignancy at station 7. Bronchoalveolar lavage was performed from posterior segment of right upper lobe. 60 mL of saline was instilled, fluid return was 15 mL. Fluid was sent for cytology Samples: 1. Bronchoalveolar lavage specimen from posterior segment of right upper lobe was sent for cytology 2. The transbronchial needle aspiration of the aforementioned lymph node (11 R and station 7) groups were sent for cytology. Complications: There was no immediate complications. The patient was extubated and brought to the PACU in stable condition. Chest x-ray: Did not show any pneumothorax
== END 2022-02-14 10:55 | disposition home or self-care (01) ==
PROVIDERS: PCP Nurse Practitioner Family; Visit Provider Internal Medicine Pulmonary Disease
PROC: BB4BZZZ Ultrasonography of Pleura (ICD-10-PCS; principal; 2022-02-14 07:00)
PROC: 0BJ08ZZ Inspection of Tracheobronchial Tree, Via Natural or Artificial Opening Endoscopic (ICD-10-PCS; CPT 31622; 2022-02-14 07:00)
DX: R91.1 Solitary pulmonary nodule (principal); I48.91 Unspecified atrial fibrillation; Z87.891 Personal history of nicotine dependence; J44.9 Chronic obstructive pulmonary disease, unspecified; E03.9 Hypothyroidism, unspecified; I25.10 Atherosclerotic heart disease of native coronary artery without angina pectoris; I25.2 Old myocardial infarction; E78.5 Hyperlipidemia, unspecified
CPT/HCPCS: 31624; 31627; 31652; 71045; 71250; 77011; 80503; 88108; 88305; J2370; J2405; J2704; J2710; J3010; J3490; J7030

== ENCOUNTER 2022-03-14 14:22 | Outpatient (CLI) | payer MEDICARE, OTHER, SELFPAY ==
--- NOTE | 2022-03-14 14:44 | PFTS_ITS ---
Date of Study:03/14/22 Date of Dictation: MECHANICS: Forced vital capacity (FVC) is reduced. Forced expiratory volume in one second (FEV1) is reduced. FEV1/FVC is reduced. FLOW VOLUME LOOP: Reduced lateral lung volumes with significant scooping. LUNG VOLUMES: Total lung capacity (TLC) is normal. Residual volume (RV) is increased. DIFFUSING CAPACITY FOR CARBON MONOXIDE: Severely reduced. INTERPRETATION: The postbronchodilator spirometry is consistent with moderate obstruction. There is no significant postbronchodilator response. Lung volumes are consistent with air trapping. Gas exchange (DLCO) is severely reduced. MTDD
== END 2022-03-14 14:23 | disposition home or self-care (01) ==
LOC: RT 14:24
PROVIDERS: PCP Nurse Practitioner Family; Visit Provider Internal Medicine Pulmonary Disease
DX: J44.9 Chronic obstructive pulmonary disease, unspecified (principal)
CPT/HCPCS: 94060; 94618; 94726; 94729; J7614

== ENCOUNTER 2022-04-21 10:51 | Outpatient (CLI) | payer MEDICARE, OTHER, SELFPAY ==
--- NOTE | 2022-04-21 11:00 | CT_ITS ---
WS: [id number] CT CHEST WITHOUT INTRAVENOUS CONTRAST HISTORY: 3 month f/u lung nodule TECHNIQUE: Contiguous 5 mm axial imaging performed on the thorax. Coronal and sagittal reformats are submitted. All CT scans at [facility] use at least one of these dose optimization techniques: automated exposure control; mA and/or kV adjustment per patient size (includes targeted exams where dose is matched to clinical indication); or iterative reconstruction. CONTRAST: None DLP: 545.87 mGy.cm COMPARISON: 01/20/2022 and 08/10/2020 Lungs and central airway: Chronic emphysema. Slightly spiculated solid nodule in the RIGHT lung is re identified. This nodule has been previously described in the RIGHT upper and RIGHT lower lobes. The e xact determination is difficult. As compared to a prior CT from 08/10/2020 this nodule appears to be within the superior major fissure between the RIGHT upper and RIGHT lower lobes. Maximum diameter is 14 mm on today's examination which has increased in size since 08/10/2020 but probably not significan tly changed since 01/20/2022. There is mild spiculation and this is a solid nodule. There are additiona l benign scattered granulomata. Chronic emphysema. Pleura: Normal. No pleural effusion. Heart and pericardium: Normal size heart. Coronary artery stent versus calcification. Mediastinum and baldev: Several small mediastinal and hilar lymph nodes are identified. These are uncha nged. No increase in size or number identified on this unenhanced exam. Vessels: Mild atherosclerotic plaque. Normal size pulmonary artery. Chest wall and lower neck: No soft tissue masses. Upper abdomen: Small hiatal hernia. No adrenal mass. Cholelithiasis without acute cholecystitis. 7 mm low-attenuation nodule in the RIGHT lobe of the liver is stable in size. Stable 5 mm low-attenuation nodule LEFT lobe of the liver. Numerous diverticula are noted in the visualized LEFT colon at the sp lenic flexure. Osseous structures: No destructive process. CT/CT chest wo con [id number] IMPRESSION: 1. No significant increase in size of the slightly spiculated solid nodule lillian tered within the superior RIGHT major fissure between the upper and lower lobes . 2. Chronic emphysema. 3. No increase in size or number of the mediastinal or hilar lymph nodes. 4. Cholelithiasis without acute cholecystitis. 5. No adrenal mass.
== END 2022-04-21 10:52 | disposition home or self-care (01) ==
PROVIDERS: PCP Nurse Practitioner Family; Visit Provider Internal Medicine Pulmonary Disease
DX: J43.9 Emphysema, unspecified (principal); K80.20 Calculus of gallbladder without cholecystitis without obstruction; R91.1 Solitary pulmonary nodule
CPT/HCPCS: 71250

== ENCOUNTER → 2022-10-30 12:48 | Outpatient (BNVA) | payer MEDICARE, OTHER, SELFPAY | PROVIDERS: PCP Nurse Practitioner Family; Visit Provider Internal Medicine | DX: I25.10 Atherosclerotic heart disease of native coronary artery without angina pectoris (principal); I25.5 Ischemic cardiomyopathy; I10 Essential (primary) hypertension; I25.2 Old myocardial infarction; Z87.891 Personal history of nicotine dependence | CPT/HCPCS: 99213 ==

== ENCOUNTER 2023-02-03 06:11 | Outpatient (CLI) | payer MEDICARE, OTHER, SELFPAY ==
--- NOTE | 2023-02-03 12:00 | PETR_ITS ---
PROCEDURE INFORMATION: Exam: PET/CT Skull Base to Mid-thigh Exam date and time: 02/03/2023 12:44 PM Age: 82 years old Clinical indication: Abnormal findings; Solitary pulmonary nodule; Additional info: R91.1 - solitary pulmonary nodule LABS AND CLINICAL REPORTS: Glucose: 119 mg/dl Treatment strategy for malignancy (PET staging): Restaging (PS) TECHNIQUE: Imaging protocol: Following at least four-hour fasting and following the injection of radiopharmaceutical, low dose CT images were obtained. Then, PET images were obtained. Attenuation corrected images were constructed using the CT scan. Fused images of PET and CT were reviewed. The standardized uptake values (SUV) reported below are maximum values within a region of interest, expressed in gm/ml. Exam includes orbital meatal line to mid-thigh. Radiopharmaceutical: 12.95 mCi F-18 FDG (Fluorodeoxyglucose), IV. Time of imaging post radiopharmaceutical administration: 1 hour Injection site: Right antecubital COMPARISON: CT chest 04/21/2022, PT PET Scan 01/28/2022 10:48 AM FINDINGS: Brain: Visualized brain has normal physiologic uptake. Pharynx: No abnormal uptake. Larynx: No abnormal uptake. Lungs, pleura and trachea: A rounded solid posterior right upper lobe noncalcified nodule the level of the major fissure measures 1.6 cm in diameter on series 3, image 45, SUV max 12.9 (previously measuring 1.3 cm in diameter with an SUV max 9.8 on the prior PET-CT). A spiculated ovoid nodule in the right lower lobe measures approximately 1.4 x 1.0 cm on series 3, image 55, SUV max 5.6, not definitively present on the prior PET-CT or prior examinations. A right upper lobe calcified granuloma is present. Assessment of the lungs is slightly limited by respiratory motion artifact. Heart: Normal physiologic uptake. Mediastinal space: No abnormal uptake. Liver: No abnormal uptake. A rounded focus of low density in the inferior right liver lobe is not radiotracer avid favoring a benign etiology measuring approximately [address] series 3, image 91. Hep Gallbladder and bile ducts: No abnormal uptake. Stones in the gallbladder are noted. Pancreas: No abnormal uptake. Spleen: No abnormal uptake. Adrenal glands: A solid nodule within the left adrenal gland measures 2.3 x 1.5 cm and demonstrates soft tissue density, SUV max 10.9 (previously measuring approximately 7 mm within SUV max 3.6 on the prior PET-CT). This nodule measured approximately 1.5 x 1.[address] chest of 04/21/2022. Unremarkable right adrenal gland. Kidneys and ureters: Normal physiologic uptake. Stomach and bowel: No abnormal uptake. There are scattered colonic diverticula. Vasculature: No abnormal uptake. There are diffuse atherosclerotic changes including within the coronary arteries. Lymph nodes: Uptake in the right hilar region is noted. No well-defined lymph node appears to be present in this location (assessment is limited without intravenous contrast) which demonstrates an SUV max 4.4 on PET series 4, image 56 (previous SUV max 5.1). Bones/joints: No abnormal uptake in the visualized axial and appendicular skeleton. A left hip arthroplasty is been performed.There is mild diffuse vertebral body spondylosis. Soft tissues: No abnormal uptake in the visualized head, neck, chest, abdomen, pelvis, and extremities. METRICS: Mediastinal blood pool: SUV max 1.9 PET/PET skulltothi SUBSEQ [id number] IMPRESSION: 1. 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 2. Slight interval increase in size within a right upper lobe nodule to level of the major fissure compared with the prior PET-CT with interval increased uptake (SUV max 12.9, previously 9.8) consistent with increased neoplastic involvement. 3. New radiotracer avid right lower lobe nodule consistent with malignancy. 4. Persistent but slightly decreased abnormal uptake in the right hilar region likely within a small neoplastic lymph node (SUV max 4.4, previously 5.1). Assessment of the size of the lymph node is limited without intravenous contrast. 5. Significant increased in size of a left adrenal nodule compared with the prior examinations with interval increase in uptake (SUV max 10.9, previously 3.6) consistent with metastasis. 6. Additional nonurgent findings as detailed above.
== END 2023-02-03 06:12 | disposition home or self-care (01) ==
LOC: RAD 02-05 06:12
PROVIDERS: PCP Nurse Practitioner Family; Visit Provider Internal Medicine Pulmonary Disease
DX: R91.1 Solitary pulmonary nodule (principal)
CPT/HCPCS: 78815; A9552

== ENCOUNTER → 2023-03-06 11:29 | Outpatient (BNVA) | payer MEDICARE, OTHER, SELFPAY | PROVIDERS: PCP Nurse Practitioner Family; Visit Provider Internal Medicine Pulmonary Disease | DX: R91.1 Solitary pulmonary nodule (principal); J44.9 Chronic obstructive pulmonary disease, unspecified; I25.10 Atherosclerotic heart disease of native coronary artery without angina pectoris; Z87.891 Personal history of nicotine dependence; R53.81 Other malaise; Z79.01 Long term (current) use of anticoagulants | CPT/HCPCS: 99214 ==

== ENCOUNTER 2023-03-13 07:53 | Day surgery (SDC) | payer MEDICARE, OTHER, SELFPAY ==
[2023-03-12 08:24] VITALS: BMI 20.3
[2023-03-13] VITALS (10 sets, daily range): BP systolic 126–146; BP diastolic 72–88; PULSE 76–92; RESP 16–18; TEMP 36.1–36.5; O2SAT 90–100
[2023-03-13 08:56] LABS: Anion Gap 13.4 (5-19); Blood Urea Nitrogen 18 mg/dL (8-23); Calcium 8.7 mg/dL (8.5-10.5); Carbon Dioxide 28 mmol/L (22-29); Chloride 104 mmol/L (98-107); Glucose 95 mg/dL (65-115); Osmolality Calculated 294 mOsm/kg (285-295); Potassium 4.4 mmol/L (3.5-5.1); Sodium 141 mmol/L (136-145)
[2023-03-13] MEDS: sodium chloride 0.9% 1,000 ML 30 ML IV (08:56)
--- NOTE | 2023-03-13 09:55 | CT_ITS ---
WS: [id number] CT CHEST TECHNIQUE: Noncontrast CT of the chest with coronal and sagittal reformatted images. CLINICAL INFORMATION: for ION Robotic bronchoscopy navigation COMPARISON: PET CT February 03, 2023 DLP: [address] scans at [facility] use at least one of these dose optimization techniques: automated e xposure control; mA and/or kV adjustment per patient size (includes targeted exams where dose is matc hed to clinical indication); or iterative reconstruction. FINDINGS: Prominent ascending thoracic aorta measuring 3.4 CM. Aortic calcification. Coronary calcification. A few prominent peribronchial lymph nodes. Coronary calcification. Intraparenchymal nodules in the supe rior segment RIGHT lower lobe measuring 1.8 x 1.8 cm and central RIGHT lower lobe measuring 1.3 x 1.5 cm. These nodules demonstrate spiculation suspicious for neoplasm. Chronic emphysematous changes. Small intraparenchymal nodule LEFT upper lobe measuring 4.4 mm. Additi onal nodule LEFT lower lobe measuring 4 mm. Nodule RIGHT middle lobe measuring 6.5 mm. Subsegmental a telectasis in the RIGHT lower lobe. Additional nodule RIGHT lower lobe near the fissure measuring 3.5 mm. A few calcified granulomas. Fibrosis in the lung apices. Cholelithiasis. Small esophageal hiatal reji ia. Partially visualized low-attenuation lesion undersurface RIGHT hepatic lobe may represent hepatic cyst but only partially visualized. Noncontrast pancreas appears normal. LEFT adrenal lesion measuri ng 2.[address]/CT chest ION (PULM ONLY) [id number] IMPRESSION: Images obtained for intraoperative navigational purposes
--- NOTE | 2023-03-13 10:02 | W.PM.OPSUD ---
Surgery/Procedure H&P Update DATE OF PROCEDURE: March 13, 2023 DATE H&P PERFORMED: 03/06/23 H&P UPDATE INFORMATION: I have reviewed H&P completed within last 30 days, I have examined patient prior to procedure and No changes to prior documentation CHANGES TO PREVIOUS DOCUMENTATION: none PREOP DIAGNOSIS: suspected lung cancer PRIMARY INDICATION FOR PROCEDURE: PET CT scan performed 02/03/2023-showed rounded solid posterior RUL noncalcified nodule at the level of major fissure measuring 1.6 cm in diameter with SUV 12.9.? A new spiculated ovoid nodule in right lower lobe measuring 1.4 x 1 cm SUV 5.6.? PLANNED PROCEDURE: Operation Date: 03/13/23 09:20 Proposed Procedures p ION/Ebus, [id number], [id number], 57438, 54172, 53880, 99180, 87630, 67203, 21862, 27620, 29743, 73310, 79433, 11946,R91.1(Not Applicable) - Napoleon Hutchison MD s Ebus(Not Applicable) - Napoleon Hutchison MD
--- NOTE | 2023-03-13 10:34 | SC_ITS ---
WS: [id number] C-arm fluoroscopy for right upper lobe bronchoscopy, 03/13/2023 Clinical Data: ION/EBUS Comparison: CT chest, 04/21/2022 Findings: Dr. Hutchison performed right upper lobe bronchoscopy SC/C-arm FL for Bronchoscopy Impression: Right upper lobe bronchoscopy.
[2023-03-13] MEDS: lidocaine 1% INJ 10 mL (per mL) XX (10:36)
[2023-03-13 12:27] LABS: Cyto Order Verification Order Verified
--- NOTE | 2023-03-13 12:32 | XRR_ITS ---
PROCEDURE INFORMATION: Exam: XR Chest Exam date and time: 03/13/2023 11:46 AM Age: 82 years old Clinical indication: Device placement; Prior surgery; Surgery date: Post-operative (0-2 days); Surgery type: Right lung biopsy bronch; Additional info: Post right lung biopsy TECHNIQUE: Imaging protocol: Radiologic exam of the chest. Views: 1 view. COMPARISON: CT chest ION (PULM ONLY) [id number] 03/13/2023 9:58 AM FINDINGS: Lungs: Unremarkable. No consolidation. Pleural spaces: Unremarkable. No pleural effusion. No pneumothorax. Heart/Mediastinum: Unremarkable. No cardiomegaly. Bones/joints: Unremarkable. XR/XR chest 1V portable [id number] IMPRESSION: No acute findings.
--- NOTE | 2023-03-13 12:45 | P.OP_ITS ---
Operative Report Date of procedure: March 13, 2023 Pre-op diagnosis: Preop Diagnosis suspected lung cancer Procedure done: 12328? ? Dx Bronchoscope w/Washings or airway inspection 47913? ? Dx Bronchoscope w/BAL 70087? ? Bronch with computer image guided Navigational Bronchoscopy 20683? ? Bronchoscopy w/Transbronchial lung biopsy(s), single lobe 90765? ? Bronchoscopy w/Transbronchial needle aspiration biopsy(s), tracheal, main stem, and/or lobar bronchus 11881? ? Bronchoscopy w/ therapeutic aspiration of the tracheobronchial tree (clearance of airway secretions, removal of mucus plugs) 02809? ? EBUS Sampling 1/2 nodes 42593? ? EBUS Diag or Interven Peripheral lesion (radial EBUS) Additional lobe lesions: 82739 w/Transbronchial lung biopsy(s), each additional lobe (list separately, in addition to code for primary procedure) 97647 w/Transbronchial needle aspiration biopsy(s), each additional lobe (list separately, in addition to code for primary procedure) Surgeon: Napoleon Hutchison MD [facility] Brief History: Ms. Nalini Richardson is a 82-year-old female with past medical history of COPD, atrial fibrillation, hypothyroidism, CAD s/p PCI to LAD in 2013, ischemic cardiomyopathy EF 65% without diastolic dysfunction moderate TR in 2019, hypertension follows up with me in pulmonary clinic for right upper lobe lung nodule, COPD. Initially 1 cm right lower lobe pulmonary nodule was seen on July 2020 CT chest during her hospitalization for left hip fracture and was recommended to to follow-up with pulmonary after discharge.? However she did not follow-up with pulmonary as outpatient. In December 2021 her manager nicu referred for COPD and exertional shortness of breath to pulmonary clinic.? Subsequently CT chest performed 01/20/2022 showed enlarging 1.4 nodular density in right lower lobe.? Subsequent PET CT scan 01/28/2022 showed 1.4 x 1.2 cm superior segment right lower lobe nodule SUV 9.8.? There is 1.4 cm inferior right hilar node SUV 5.1.? Subtle activity seen in the right hilar node at the level of bronchus intermedius.? Subtle activity in the left adrenal with a SUV 3.6 is also noted. Although the lesion was reported in the right lower lobe-upon reviewing the CT scan with radiologist Dr. Emery it is confirmed to be along the fissure on right upper lobe. On 02/14/2021: patient underwent navigational bronchoscopy guided transbronchial biopsies of right upper lobe nodule and endobronchial ultrasound-guided biopsy of right inferior hilar node.? And control of bleeding.? It was technically difficult to reach right upper lobe lesion (also tried navigating through subsegments of the right upper lobe and superior segment of right lower lobe) using navigational bronchoscopy, pathology of 11 R and station 7 lymph nodes showed few atypical cells in the background of lymphoid tissue but reported no definitive malignancy. - After discussing in tumor board on 02/23/2022, I recommended CT-guided biopsy of right lower lobe nodule. But pt refused any invasive procedure and agreed to follow-up with 3-month follow-up CT. - Repeat CT chest 04/21/22 - no change in size of RUL/lesion;? pt expressed wishes that even if it increases in size then she will not consider getting biopsies and chemo and radiation.? She reported that when her oixinzte-pi-ojl and were diagnosed with cancer and went through treatments-it was very hard on her son and she does not want him to go through all that stress again. -Discussed with patient and her son that if they have no intentions to go for further diagnostic procedures and treatments for lung cancer-there is no point in doing scans.? They both verbalized understanding and they did not want to do any more scans. -They came back to follow-up 01/24/2023 and son reported patient's blood work at PCP office showed significantly elevated blood cells and was told there is concern for cancer.? I reviewed the labs on 12/29/2022-WBC 14,000; with differential showing lymphocytes 55%.? There were smudge cells present, patholog y reported atypical lymphocytes. -Both patient and her son wanted to know the status with her lung cancer and would consider biopsies and want to know about the treatment options pilar young wanted to make decisions.. -Accordingly PET CT scan performed 02/03/2023-showed rounded solid posterior RUL noncalcified nodule at the level of major fissure measuring 1.6 cm in diameter with SUV 12.9.? A new spiculated ovoid nodule in right lower lobe measuring 1.4 x 1 cm SUV 5.6.? There is persistent but slightly decreased abnormal uptake in the right hilar region likely within a small neoplastic lymph node SUV 4.4.? Significant increased in size of left adrenal nodule compared with prior exam with interval increase in uptake 10.9 (previously 3.6)-overall findings consistent with progressive malignancy. Today she is scheduled for navigational guided bronchoscopic biopsies of right upper lobe as well as right lower lobe nodule; endobronchial ultrasound-guided biopsy of right hilar lymph nodes.? They verbalized understanding and agreed with the procedure. Procedure: 78279? ? Dx Bronchoscope w/Washings or airway inspection 04340? ? Dx Bronchoscope w/BAL 06788? ? Bronch with computer image guided Navigational Bronchoscopy 75151? ? Bronchoscopy w/Transbronchial lung biopsy(s), single lobe 71331? ? Bronchoscopy w/Transbronchial needle aspiration biopsy(s), tracheal, main stem, and/or lobar bronchus 96954? ? Bronchoscopy w/ therapeutic aspiration of the tracheobronchial tree (clearance of airway secretions, removal of mucus plugs) 38123? ? EBUS Sampling 1/2 nodes 75277? ? EBUS Diag or Interven Peripheral lesion (radial EBUS) Additional lobe lesions: 27433 w/Transbronchial lung biopsy(s), each additional lobe (list separately, in addition to code for primary procedure) 56967 w/Transbronchial needle aspiration biopsy(s), each additional lobe (list separately, in addition to code for primary procedure) Indication:? Description of the procedure: The procedure was explained to the patient and the consent was obtained.? The patient was brought to the OR.? Anesthesia: The patient underwent endotracheal intubation for general anesthesia. Local anesthesia: The distal trachea-Joycelyn, right and left mainstem bronchi were anesthetized with 1% lidocaine, 3 mL. Following induction of general anesthesia, the flexible bronchoscope was advanced through the? ET tube.? The? lower trachea mucosa appeared normal, no endotracheal lesion was seen.? The joycelyn was sharp.? The joycelyn, the right and left mainstem bronchi are anesthetized with 1% lidocaine.? In a systematic manner bilateral bronchial tree was then examined. ? The bronchoscope was then introduced into the right mainstem bronchus.? The right upper lobe, right middle lobe and right lower lobe bronchi were examined up to the third subsegmental level and no abnormalities were identified.Mucosa appeared normal with no endobronchial lesion, active bleeding or mucous plug.There were significant clear as well as some mucus secretions which were suctioned right away.(59820). The bronchoscope was advanced into the left mainstem bronchus.? The mucosa appeared normal with no endobronchial lesions.? The left upper lobe, lingula and left lower lobe bronchi were examined up to the third subsegmental level and no abnormalities were identified.? Mucosa appeared normal with no endobronchial lesion, active bleeding or mucous plug.? There were some mucus secretions in left lower lobe-which were suctioned right away.(53749) After initial inspection as well as?airway clearance with flexible bronchoscope(54157),?ION robotic assisted navigational bronchoscope (11824)?was introduced-and right upper lobe lesion was accessed.? After?confirming the location with radial EBUS (02703),?under the fluoroscopy guidance? -we were able to obtain biopsies using fine-needle, forceps.There was some evidence of grade 2 bleeding-cold saline was instilled. Bronchoalveolar lavage was also taken from right upper lobe lesion. After making sure there is no active bleeding, bronchoscope was navigated to the superior segment of right lower lobe lesion using [employer] robotic navigational software lesion. After?confirming the location with radial EBUS (85180),?under the fluoroscopy guidance? -we were able to obtain biopsies using fine-needle, forceps.There was some evidence of grade 2 bleeding-cold saline was instilled. Bronchoalveolar lavage was also taken from right lower lobe lesion. After making sure there is no active bleeding navigational bronchoscope was retracted and?introduced Endobronchial ultrasound EBUS (47086). ? With the help of EBUS, identified a lymph node at station 7 and station 11 R.? ?Fine-needle aspiration biopsies? were taken from station 7, station 11 R (31134). After taking the biopsies EBUS retracted-diagnostic bronchoscope was introduced to check for any evidence of active bleeding. There was some evidence of bleeding-controlled with instillation of cold saline. After making sure there is no active bleeding bronchoscope was retracted and procedure terminated. ? Samples: A. Right upper lobe lesion 1.? Total of 4 passes were made?using needle aspiration(62635);?first pass used for touch prep - reported seeing atypical clusters; rest of the material was placed in formalin for histopathology 2.? Targeting the same area 4 passes were?made using forceps (58144); first pass used for touch prep -pathology reported negative for malignancy; rest of the material were placed in formalin for histopathology 3. Bronchoscope was wedged at the entrance of the posterior segment of right upper lobe, 10 mL of saline was instilled and returned 6 mL of bronchoalveolar lavage (35226).? The fluid was mixed with blood and specks of tissue. Samples for cell count, cytology, cultures B. Right lower lobe lesion 1.? Total of 4 passes were made?using needle aspiration (01805);?first pass used for touch prep - reported positive for malignancy; rest of the material was placed in formalin for histopathology 2.? Targeting the same area 4 passes were?made using forceps (86892); first pass used for touch prep -pathology reported Positive for malignancy; rest of the material were placed in formalin for histopathology 3. Bronchoscope was wedged at the entrance of the superior segment of right lower lobe, 10 mL of saline was instilled and returned 6 mL of bronchoalveolar lavage (09485).? The fluid was mixed with blood and specks of tissue.Samples for cell count, cytology, cultures C. EBUS guided biopsies of 2 lymph nodes-station 7, station 11 R (98452) 1.? Total of 3 passes were made?using needle aspiration(16022) from station 7; ?first pass used for touch prep -pathology reported seeing?atypical clusters; ?rest of the material were placed in formalin for histopathology. 2.? Total of 3 passes were made?using needle aspiration(06183) from station 11 R:?First pass used for touch prep-pathology reported negative for malignancy; rest of the material was placed in formalin for histopathology ? Complications: None.The patient was extubated and brought to the PACU in stable condition. Postprocedure chest x-ray: There is no evidence of pneumothorax Disposition: Patient can be discharged home in stable condition. ? Pt, and her son are aware that I am going to call them? to update final biopsy results once available.
--- NOTE | 2023-03-13 14:51 | P.ANESASSM_ITS ---
Pre-Anesthetic Assessment Height/Weight: Height 1.68 m Weight 57.153 kg Temp Pulse Resp BP Pulse Ox O2 Del Method O2 Flow Rate 97.7 F 78 18 130/76 97 Room Air 6 03/13/23 13:16 03/13/23 13:31 03/13/23 13:31 03/13/23 13:31 03/13/23 13:31 03/13/23 13:03/13/23 12:50 Preop Diagnosis: suspected lung cancer Operation Date: 03/13/23 09:20 Proposed Procedures p ION/Ebus, 15343, 30357, 00135, 03082, 45630, 76891, 01917, 91715, 68833, 33998, 53851, 34858, 76307, 58392,R91.1(Not Applicable) - Napoleon Hutchison MD s Ebus(Not Applicable) - Napoleon EspinozarMD Familial anesthetic complications: none Was Beta Susanna taken within 24 hours: Yes Was Clonidine taken within 24 hours: N/A Last intake: Intake Last Liquid Date 03/12/23 Last Liquid Time 22:00 Last Solid Date 03/12/23 Last Solid Time 21:30 Social No alcohol and No tobacco (h/o smoking) Exam alert, oriented x 3 and regular rate & rhythm Airway Submandibular: within normal limits Cervical ROM: within normal limits Mallampati: Class II Dentition: partials Pulmonary Chronic Obstructive Pulmonary Disease CV/HEM Atrial Fibrillation, Arrythmia, Coronary Artery Disease and Hypertension Metabolic Thyroid Disease Neuropsych Anxiety and Depression Anesthetic Plan ASA status: 3 Anesthesia: General Medications/Allergies Home Medications Medication Instructions Recorded Confirmed Last Taken Type alprazolam 0.5 mg tablet (Xanax) 0.5 mg PO QID PRN Anxiety 02/09/20 03/12/23 03/13/23 05:30 History amitriptyline 50 mg tablet 50 mg PO DAILY 02/09/20 03/12/23 03/12/23 History meclizine 25 mg tablet 25 mg PO DAILY PRN Dizziness 02/09/20 03/12/23 03/11/23 History albuterol sulfate 90 mcg/actuation 1 inh inhalation Q6H PRN shortness 02/04/21 03/13/23 03/13/23 05:30 Rx aerosol inhaler of breath or wheezing #18 grams clopidogrel 75 mg tablet (Plavix) 75 mg PO DAILY #90 tabs 10/31/21 03/12/23 03/09/23 Rx nitroglycerin 0.4 mg sublingual 0.4 mg sublingual Q5M PRN Chest 10/31/21 03/12/23 Unknown Rx tablet (Nitrostat) Pain #25 tabs budesonide 0.5 mg/2 mL suspension 0.5 mg inhalation BID 07/26/22 03/12/23 03/12/23 History for nebulization (Pulmicort) formoterol fumarate 20 mcg/2 mL 2 ml inhalation BID 07/26/22 03/12/23 03/12/23 History solution for nebulization (Perforomist) revefenacin 175 mcg/3 mL solution 175 mcg inhalation DAILY 07/26/22 03/12/23 03/12/23 History for nebulization (Yupelri) metoprolol tartrate 25 mg tablet 25 mg PO DIRECTED #135 tabs 11/09/22 03/12/23 03/13/23 05:30 Rx simvastatin 40 mg tablet (Zocor) 40 mg PO DAILY 03/12/23 03/12/23 03/11/23 History Allergies Allergy/AdvReac Type Severity Reaction Status Date / Time aspirin Allergy Unknown Unknown Verified 03/13/23 08:05 lisinopril Allergy Unknown unknown Verified 03/13/23 08:05 morphine Allergy Unknown Unknown Verified 03/13/23 08:05 [facility] Anesthesia Medical History Anxiety CAD (coronary artery disease) Post PCI to LAD in 2013 GERD (gastroesophageal reflux disease) History of NM (myocardial infarction) HTN (hypertension) Hyperlipidemia Hypothyroidism Ischemic cardiomyopathy Echocardiogram from 2016 shows an EF of 64% without diastolic dysfunction, moderate TR Surgical History S/P angioplasty with stent S/P appendectomy S/P hysterectomy Family History Other Cancer Hypertension Social History Smoking and tobacco status: former smoker Quit status (tobacco): has quit using tobacco Year quit tobacco: 2013 Former quit date comment: 2ppd x 53years Alcohol intake: never Substance/Drug Use: never Lives independently: Yes Housing: House Marital status: / Data Anesthesia 03/13/23 08:29 BMP 03/13/23 08:29 Sodium 141 Potassium 4.4 Chloride 104 Carbon Dioxide 28 BUN 18 Creatinine 0.8 Glucose 95 Calcium 8.7 Cardiac Studies: Echocardiogram Ultrasound 08/11/20
--- NOTE | 2023-03-13 14:53 | ANE.PACU2 ---
Inpatient post-anesthesia follow up: Airway intact: Yes Vital signs: Temperature 97.7 F Pulse Rate 78 Respiratory Rate 18 Blood Pressure 130/76 Pulse Oximetry 97 Oxygen Delivery Me thod Room Air Oxygen Flow Rate 6 Fraction of Inspir ed Oxygen Hydration adequate: Yes Nausea and vomiting: No Pain level: 2 Mental status: Baseline
[2023-03-13 15:05] LABS: Apprearance, Bronch Wash Bloody (CLEAR); Color, Bronc Wash Red
[2023-03-13 15:11] LABS: Bronch Source Right Upper Lobe; PATH Referral Yes
[2023-03-13 15:30] LABS: Total Cells Counted Bronch 200
== END 2023-03-13 14:36 | disposition home or self-care (01) ==
PROVIDERS: Anesthesiology; PCP Nurse Practitioner Family; Visit Provider Internal Medicine Pulmonary Disease
PROC: 0BJ08ZZ Inspection of Tracheobronchial Tree, Via Natural or Artificial Opening Endoscopic (ICD-10-PCS; CPT 31622; principal; 2023-03-13 09:20)
PROC: BB4BZZZ Ultrasonography of Pleura (ICD-10-PCS; 2023-03-13 09:20)
DX: C34.11 Malignant neoplasm of upper lobe, right bronchus or lung; J44.9 Chronic obstructive pulmonary disease, unspecified; I48.91 Unspecified atrial fibrillation; I25.10 Atherosclerotic heart disease of native coronary artery without angina pectoris; I10 Essential (primary) hypertension; E03.9 Hypothyroidism, unspecified; F41.9 Anxiety disorder, unspecified; F32.A Depression, unspecified; C34.31 Malignant neoplasm of lower lobe, right bronchus or lung; Z87.891 Personal history of nicotine dependence; Z79.01 Long term (current) use of anticoagulants
CPT/HCPCS: 31624; 31627; 31628; 31629; 31632; 31633; 31645; 31652; 31654; 36415; 71045; 71250; 76000; 80048; 80503; 87070; 87205; 88112; 88305; 88342; 89050; J1100; J2370; J2405; J2704; J2710; J3010; J3490; J7030

== ENCOUNTER → 2023-04-10 13:51 | Outpatient (BNVA) | payer MEDICARE, OTHER, SELFPAY | PROVIDERS: PCP Nurse Practitioner Family; Visit Provider Orthopaedic Surgery | DX: M51.36 Other intervertebral disc degeneration, lumbar region (principal); M54.9 Dorsalgia, unspecified | CPT/HCPCS: 72110; 73502; 99213 ==

== ENCOUNTER 2023-04-11 08:47 | Oncology outpatient (recurring) (ONCR) | payer MEDICARE, OTHER, SELFPAY | END 2023-04-20 23:59 | disposition home or self-care (01) | PROVIDERS: PCP Nurse Practitioner Family; Visit Provider Internal Medicine Medical Oncology | DX: C34.11 Malignant neoplasm of upper lobe, right bronchus or lung (principal) | CPT/HCPCS: 99204 ==

== ENCOUNTER 2023-04-17 12:53 | Inpatient (IN) | payer MEDICARE, OTHER, SELFPAY ==
[2023-04-17] VITALS (18 sets, daily range): BP systolic 94–156; BP diastolic 67–103; PULSE 80–106; RESP 17–22; TEMP 36.6–37; O2SAT 83–99; BMI 19.3
[2023-04-17 13:42] LABS: Hematocrit 39.5 % (37.0-47.0); Hemoglobin 12.7 g/dL (11.5-15.3); Mean Corpuscular HGB Conc 32.2 g/dL (30.0-36.0); Mean Corpuscular Hemoglobin 30.2 pg (28.0-34.0); Mean Platelet Volume 8.6 fL (7.4-10.4); Platelet Count 220 10^3/cmm (130-400); Red Cell Distribution Width 13.6 % (12.1-15.1); White Blood Count 16.7 10^3/uL (4.0-10.0)
--- NOTE | 2023-04-17 13:43 | CT_ITS ---
WS: [id number] CT CERVICAL SPINE HISTORY: trauma, fall. TECHNIQUE: Contiguous 2.0 mm axial imaging performed through the entire cervical spine. Sagittal and coronal reformats also performed. All CT scans at [facility] use at least one of these dose o ptimization techniques: automated exposure control; mA and/or kV adjustment per patient size (include s targeted exams where dose is matched to clinical indication); or iterative reconstruction. DLP: 1310.28 mGy.cm COMPARISON: None available. Mild increase in cervical lordosis. Disc spaces are mildly narrowed. No vertebral body fracture. Norm al craniocervical alignment. The odontoid is intact. No cervical spine fracture. Bilateral facet join t arthritis. C2-C3: Small central disc protrusion. C3-C4: Moderate LEFT facet joint arthritis and foraminal narrowing. C4-C5: Moderate facet joint arthritis on the LEFT. C5-C6: Osteophytic ridging with facet joint arthritis. Mild central with moderate foraminal stenosis. C6-C7: Central disc bulging. Mild facet arthritis. C7-T1: Normal. Paraseptal emphysema. CT/CT cervical spin wo con* [id number] IMPRESSION: 1. No acute cervical spine fracture. 2. Multilevel facet joint arthritis. 3. Most significant stenosis at C5-6.
--- NOTE | 2023-04-17 13:43 | CT_ITS ---
WS: [id number] CT HEAD NONCONTRAST HISTORY: trauma TECHNIQUE: Contiguous axial imaging performed through the brain in 2.5 mm imaging. Bone and soft tiss ue windows. Sagittal and coronal reformats reviewed. All CT scans at [facility] use at least one of these dose optimization techniques: automated exposure control; mA and/or kV adjustment per pa tient size (includes targeted exams where dose is matched to clinical indication); or iterative recon struction. DLP: 1310.28 mGy.cm COMPARISON: 08/11/2020 No acute intracranial hemorrhage, midline shift or mass effect. Moderate atrophy and small vessel ischemic disease. Small lacunar infarcts in the LEFT external capsu le. Small lacunar infarct in the anterior limb RIGHT internal capsule. Ventricles: Normal size with no hydrocephalus. No inferior displacement of the cerebellar tonsils. Paranasal sinuses: As visualized are clear. Mastoid air cells: Well pneumatized. Calvarium and scalp: Skull is intact with no soft tissue edema or swelling. CT/CT head wo con* [id number] IMPRESSION: 1. Moderate atrophy and small vessel ischemic disease and lacunar infarcts. 2. No acute intracranial hemorrhage or edema.
--- NOTE | 2023-04-17 13:43 | CT_ITS ---
WS: [id number] CT CHEST, ABDOMEN AND PELVIS WITH CONTRAST HISTORY: trauma TECHNIQUE: Contiguous 5 mm axial imaging performed through the chest, abdomen and pelvis with IV cont rast, oral contrast has not been provided. Coronal and sagittal reformats chest. Coronal and sagittal reformats through the abdomen and pelvis. All CT scans at [facility] use at least one of the se dose optimization techniques: automated exposure control; mA and/or kV adjustment per patient size (includes targeted exams where dose is matched to clinical indication); or iterative reconstruction. CONTRAST: Omnipaque 350; 100 mL IV. DLP: 720.86 mGy.cm COMPARISON: 04/21/[address]: Chronic emphysema. No pneumothorax or pulmonary contusion. Patient has known RIGHT spiculat ed solid masses. Spiculated mass along the RIGHT fissure measures 18 x 14 mm. There is an additional smaller spiculated mass in the superior segment RIGHT lower lobe measuring 14 x 12 mm. Size has not s ignificantly changed since 03/13/2023. Suspicious for neoplasm. 5 mm noncalcified nodule LEFT lower lo be. Small RIGHT hilar lymph node is indeterminate 12 mm. Atherosclerosis aorta. Normal size pulmonary artery. Normal size heart. Increase in thoracic kyphosis. New acute appearing T10 compression fractu re. Biconcave fracture with loss of height by approximately 30%. No rib fractures are identified. No spinous process fracture. Abdomen CT: Liver and spleen are intact. Stable hepatic cysts. Cholelithiasis without acute cholecyst itis. Moderate atrophy pancreas. Mild renal atrophy. Solid mass LEFT adrenal gland measures 13 x 25 m m. Noted to be suspicious for metastatic lesion on the recent PET/CT. Atherosclerosis aorta. No adeno navneet. No mesenteric hematoma. No GI tract obstruction. Numerous diverticula in the distal colon with out acute diverticulitis. Small umbilical fat-containing hernia. Pelvic CT: No free fluid or adenopathy. No pelvic fracture identified. Prior LEFT hip arthroplasty. CT/CT chest abdpel w/*[id number] IMPRESSION: 1. Acute T10, 30% biconcave compression fracture without retropulsion. 2. No visceral organ injury. 3. Spiculated nodules RIGHT upper and RIGHT lower lobes have been previously d escribed consistent with malignancy. Not significantly changed in size since e most recent PET/CT of 02/03/2023. 4. Known LEFT adrenal metastasis. 5. Indeterminate but suspicious RIGHT hilar lymph node also positive on the PE T/CT. 6. No mesenteric injury or hematoma. 7. Cholelithiasis.
--- NOTE | 2023-04-17 13:45 | ECG_ITS ---
[facility] Test Date: 2023-04-17 Pat Name: Nalini Richardson Department: Room: Gender: Female Newborn Photographer: : 1940 Requested By: Hang Naranjo Order Number: [id number] Riya MD: Romeo Comer M.D. Measurements Intervals [place] Rate: 87 P: 66 CA: 126 QRS: 62 QRSD: 74 T: 66 QT: 370 QTc: 447 Interpretive Statements SINUS RHYTHM LOW QRS VOLTAGE IN PRECORDIAL LEADS [QRS DEFLECTION < 1.0 mV IN CHEST LEADS] MODERATE ST DEPRESSION [0.05+ mV ST DEPRESSION] Compared to ECG 08/12/2020 05:47:00 Short CA interval no longer present ST (T wave) deviation still present Electronically Signed On 04-19-2023 10:02:52 CDT by Romeo Comer M.D. [email or web address]
[2023-04-17 14:00] LABS: Alanine Aminotransferase 16 U/L (0-33); Albumin Level 4.1 g/dL (3.5-5.2); Alkaline Phosphatase 113 U/L (35-105); Anion Gap 17.3 (5-19); Aspartate Amino Transferase 23 U/L (0-32); Blood Urea Nitrogen 19 mg/dL (8-23); Calcium 9.3 mg/dL (8.5-10.5); Carbon Dioxide 27 mmol/L (22-29); Chloride 101 mmol/L (98-107); Globulin 2.6 g/dL (1.3-4.6); Glucose 147 mg/dL (65-115); Osmolality Calculated 297 mOsm/kg (285-295); Potassium 4.3 mmol/L (3.5-5.1); Sodium 141 mmol/L (136-145); Total Bilirubin 0.3 mg/dL (0.15-1.2); Total Protein 6.7 g/dL (6.6-8.7)
[2023-04-17] MEDS: iohexol 350 mg/mL 500 mL Btl (per mL) IV (14:03)
--- NOTE | 2023-04-17 14:13 | ED_ITS ---
HPI - Fall General: Chief Complaint: Fall Stated Complaint: Fall / Back Injury Time Seen by Provider: 04/17/23 13:01 Source: patient Mode of arrival: EMS History of Present Illness: 82-year-old female who presents to the emergency room with complaints of a fall. She was going out to her garage and stumbled and fell she landed on her back. No loss consciousness she is on Plavix complaining of severe back pain and left hip pain. No chest pain no difficulty breathing. She has some skin tears on the right hand. She denies chest pain or abdominal pain no pain in the lower extremities. She was given patient pain medications by EMS in route. MD complaint: fall Onset (ago): minute(s) Fall from: standing Fall witnessed: no Place fall occurred: home Loss of consciousness: None Prolonged down time: no Context: tripped/slipped Associated symptoms-after fall: Denies abdominal pain, chest pain, confusion, difficulty walking, headache(s), hematuria, lightheadedness, neck pain, numbness, short of breath, vertigo or weakness Review of Systems Const: Denies: fever(s), chills, body aches, change in appetite, fatigue or malaise ENMT: Denies: throat pain, ear or mastoid pain, nasal discharge or nasal congestion Card: Denies: chest pain or lightheadedness Resp: Denies: dyspnea, productive cough or non-productive cough GI: Denies: abdominal pain : Denies: hematuria Musc: Denies: neck pain Skin/Breast: Denies: rash or pruritus Neuro: Denies: headache(s), difficulty walking, vertigo or confusion PFS ED PFSH: Medical History Anxiety Atypical pneumonia CAD (coronary artery disease) Post PCI to LAD in 2013 Ex-smoker GERD (gastroesophageal reflux disease) History of [place] (myocardial infarction) HTN (hypertension) Hyperlipidemia Hypothyroidism Ischemic cardiomyopathy Echocardiogram from 2016 shows an EF of 64% without diastolic dysfunction, moderate TR Left displaced femoral neck fracture Surgical History S/P angioplasty with stent S/P appendectomy S/P hysterectomy S/P ORIF (open reduction internal fixation) fracture Family History Other Cancer Hypertension Social History Smoking and tobacco status: former smoker Quit status (tobacco): has quit using tobacco Year quit tobacco: 2013 Former quit date comment: 2ppd x 53years Alcohol intake: never Substance/Drug Use: never Lives independently: Yes Housing: House Marital status: / Course Vital Signs: Vital signs: Vital Signs Temperature 98.4 F 04/20/23 12:36 Pulse Rate 96 04/20/23 12:36 Respiratory Rate 16 04/20/23 12:36 Blood Pressure 131/78 04/20/23 12:36 Pulse Oximetry 93 04/20/23 07:43 Oxygen Delivery Me thod Room Air 04/20/23 07:43 Oxygen Flow Rate 1 04/20/23 02:53 MDM - Fall Medical Decision Making Known history of small cell lung CA compression fracture with no retropulsion patient is really unable to even sit up in the bed. Discussed with family will admit to observation plan will be to place a halfway for rehab and evaluation for possible kyphoplasty I discussed Dr. graves and he will come see the patient as an inpatient. Discussed with hospitalist will place on ops for pain control. Medical Records I reviewed the patient's medical records. Lab Data I reviewed the patient's lab results. 04/20/23 05:18 04/20/23 05:18 Radiology Impressions Cervical Spine CT 04/17/23 13:43 IMPRESSION: 1. No acute cervical spine fracture. 2. Multilevel facet joint arthritis. 3. Most significant stenosis at C5-6. Chest/Abdomen/Pelvis CT 04/17/23 13:43 IMPRESSION: 1. Acute T10, 30% biconcave compression fracture without retropulsion. 2. No visceral organ injury. 3. Spiculated nodules RIGHT upper and RIGHT lower lobes have been previously described consistent with malignancy. Not significantly changed in size since the most recent PET/CT of 02/03/2023. 4. Known LEFT adrenal metastasis. 5. Indeterminate but suspicious RIGHT hilar lymph node also positive on the PET/CT. 6. No mesenteric injury or hematoma. 7. Cholelithiasis. Head CT 04/17/23 13:43 IMPRESSION: 1. Moderate atrophy and small vessel ischemic disease and lacunar infarcts. 2. No acute intracranial hemorrhage or edema. Hip/Pelvis X-Ray 04/17/23 14:14 IMPRESSION: 1. Intact total left hip prosthesis without change or complication since the last study. Thoracic Spine MRI 04/18/23 18:36 IMPRESSION: 1. Acute compression fracture T10 vertebral body with diffuse edema. No retropulsion. Loss of approximately 30% vertebral body height unchanged. 2. Considering history of metastasis pathologic compression not entirely e xcluded although no focal visualized lesion. If kyphoplasty or vertebroplasty performed, recommend biopsy at that time. 3. Cord signal is normal. 4. Known RIGHT pulmonary neoplasms partially visualized. Laboratory Results WBC 16.7 10^3/uL (4.0-10.0) H 04/17/23 13:29 RBC 4.20 10^6/uL (4.1-5.3) 04/17/23 13:29 Hgb 12.7 g/dL (11.5-15.3) 04/17/23 13:29 Hct 39.5 % (37.0-47.0) 04/17/23 13:29 MCV 94.0 fl (81-99) 04/17/23 13:29 MCH 30.2 pg (28.0-34.0) 04/17/23 13:29 MCHC 32.2 g/dL (30.0-36.0) 04/17/23 13:29 RDW 13.6 % (12.1-15.1) 04/17/23 13:29 Plt Count 220 10^3/cmm (130-400) 04/17/23 13:29 MPV 8.6 fL (7.4-10.4) 04/17/23 13:29 Lymph % (Auto) Not Reportable 04/17/23 13:29 [place] % (Auto) Not Reportable 04/17/23 13:29 Lymph # (Auto) Not Reportable 04/17/23 13:29 [place] # (Auto) Not Reportable 04/17/23 13:29 Total Counted 100 (0-100) 04/17/23 13:29 Atypical Lymphs % 14.0 % (0-5) H 04/17/23 13:29 Absolute Neutrophils 7.7 10^3/cmm (1.4-6.5) H 04/17/23 13:29 Segmented Neutrophils 46 % 04/17/23 13:29 Abs Segm Neuts (Man) 7.7 10/cmm (1.6-7.1) H 04/17/23 13:29 Band Neutrophils 0.0 % 04/17/23 13:29 Abs Band Neuts (Man) 0.0 10^3/cmm (0.0-1.2) 04/17/23 13:29 Absolute Lymphocytes 8.5 10^3/cmm (1.2-3.4) H 04/17/23 13:29 Lymphocytes (Manual) 37 % 04/17/23 13:29 Monocytes (Manual) 3.0 % 04/17/23 13:29 Absolute Monocytes 0.5 10^3/cmm (0.1-0.6) 04/17/23 13:29 Eosinophils (Manual) 0 % 04/17/23 13:29 Absolute Eosinophils 0.0 10^3/cmm (0.0-0.7) 04/17/23 13:29 Basophils (Manual) 0.0 % 04/17/23 13:29 Absolute Basophils 0.0 10^3/cmm (0.0-0.2) 04/17/23 13:29 Metamyelocytes 0.0 % 04/17/23 13:29 Myelocytes 0.0 % 04/17/23 13:29 Promyelocytes 0.0 % 04/17/23 13:29 Platelet Estimate Normal (Normal) 04/17/23 13:29 Sodium 141 mmol/L (136-145) 04/17/23 13:29 Potassium 4.3 mmol/L (3.5-5.1) 04/17/23 13:29 Chloride 101 mmol/L (98-107) 04/17/23 13:29 Carbon Dioxide 27 mmol/L (22-29) 04/17/23 13:29 Anion Gap 17.3 (5-19) 04/17/23 13:29 BUN 19 mg/dL (8-23) 04/17/23 13:29 Creatinine 0.7 mg/dL (0.5-0.9) 04/17/23 13:29 GFR Calculation Not Reportable 04/17/23 13:29 Glucose 147 mg/dL (65-115) H 04/17/23 13:29 Calculated Osmolality 297 mOsm/kg (285-295) H 04/17/23 13:29 Calcium 9.3 mg/dL (8.5-10.5) 04/17/23 13:29 Total Bilirubin 0.3 mg/dL (0.15-1.2) 04/17/23 13:29 AST 23 U/L (0-32) 04/17/23 13:29 ALT 16 U/L (0-33) 04/17/23 13:29 Alkaline Phosphatase 113 U/L (35-105) H 04/17/23 13:29 Total Protein 6.7 g/dL (6.6-8.7) 04/17/23 13:29 Albumin 4.1 g/dL (3.5-5.2) 04/17/23 13: Globulin 2.6 g/dL (1.3-4.6) 04/17/23 13:29 Vitamin B12 944 pg/mL (232-1245) 04/17/23 13:29 TSH 5.85 uIU/mL (0.27-4.20) H 04/17/23 13:29 Free T4 1.15 ng/dL (0.82-1.77) 04/17/23 13:29 Free T3 2.7 PG/ML (2.0-4.4) 04/17/23 13:29 Urine Color Yellow (Yellow) 04/17/23 14:26 Urine Appearance Clear (CLEAR) 04/17/23 14:26 Urine pH 6.5 (5-7) 04/17/23 14:26 Ur Specific [place] 1.005 (1.005-1.030) 04/17/23 14:26 Urine Protein Trace (Negative) 04/17/23 14:26 Urine Glucose (UA) Norm (Normal) 04/17/23 14:26 Urine Ketones 1+ (Negative) H 04/17/23 14:26 Urine Blood 2+ (Negative) H 04/17/23 14:26 Urine Nitrate Negative (Negative) 04/17/23 14:26 Urine Bilirubin Neg (Negative) 04/17/23 14:26 Urine Urobilinogen Norm mg/dL (Negative) 04/17/23 14:26 Ur Leukocyte Esterase Negative (Negative) 04/17/23 14:26 Urine RBC 5-10 /hpf (0-2) H 04/17/23 14:26 Urine WBC 0-4 /hpf (0-5) H 04/17/23 14:26 Ur Squamous Epith Cells 0-4 /hpf (0-5) H 04/17/23 14:26 Amorphous Sediment Not Reportable 04/17/23 14:26 Urine Bacteria Trace /hpf (NONE) 04/17/23 14:26 Urine Mucus Trace /hpf 04/17/23 14:26 Discharge Plan Discharge Patient Disposition: Admitted As Inpatient Admit Provider: Conor Leyva Clinical Impression: T10 vertebral fracture, Small cell lung cancer, right upper lobe, Ischemic cardiomyopathy, Atrial fibrillation, HTN (hypertension) Condition: Stable Discharge Diet: Advance as tolerated Discharge Activity: Limit activity as instructed Coding Level of Care Code ED Nursing Program Coordinator for Lakesha Barry
--- NOTE | 2023-04-17 14:14 | XR_ITS ---
WS: [id number] Exam: XR hip LT 2-3V wo/w pel* [id number] Date/Time of Exam: 04/17/2023 2:16 PM Reason For Exam: trauma Comparison 04/10/2023. A total hip prosthesis is in satisfactory position. No sign of fracture or loosening. Normal soft tis sues. Radiographic contrast in the urinary bladder and distal left ureter. XR/XR hip LT 2-3V wo/w pel* [id number] IMPRESSION: 1. Intact total left hip prosthesis without change or complication since the [place] study.
[2023-04-17 14:27] LABS: Absolute Neutrophil 7.7 10^3/cmm (1.4-6.5); Absolute Segmented Neutrophil 7.7 10/cmm (1.6-7.1); Eosinophils 0 %; Lymphocytes 37 %; Lymphocytes Absolute 8.5 10^3/cmm (1.2-3.4); Monocytes Absolute 0.5 10^3/cmm (0.1-0.6); Platelet Estimate Normal (Normal); Segmented Neutrophils 46 %; Slide Review Slide Review Perform; Total Cells Counted 100 (0-100)
[2023-04-17 15:08] LABS: Add Urine Microscopic? YES; Bacteria Urine TRACE /hpf; Bilirubin Urine Neg (Negative); Blood Urine 2+ (Negative); Glucose Urine UA Norm (Normal); Ketones Urine 1+ (Negative); Leukocyte Esterase Urine Negative (Negative); Nitrate Urine Negative (Negative); Protein Urine Trace (Negative); Specific Gravity, Urine 1.005 (1.005-1.030); Squamous Epithelial Cell Urine 0-4 /hpf (0-5); Urine Appearance Clear (CLEAR); Urine Color Yellow (Yellow); Urobilinogen Urine Norm (Negative); WBC Urine 0-4 /hpf (0-5); pH Urine 6.5 (5-7)
[2023-04-17 15:09] LABS: Add Urine Culture? No; Mucus Urine TRACE /hpf
[2023-04-17] MEDS: lidocaine 1% INJ 10 mL (per mL) 20 ML IM (15:40)
[2023-04-17] MEDS: tetanus-diphtheria tox (adult) 0.5 mL SDV IM (15:41)
--- NOTE | 2023-04-17 16:58 | PM.HP ---
Providers/Chief Complaint Primary Care Provider: Cris Lobo APN Chief Complaint: Fall / Back Injury History of Present Illness Nalini Richardson is a 82 year old female with past history of CAD post PCI to LAD, hypertension, hyperlipidemia, hypothyroidism, ischemic cardiopathy with last EF of 64% with diastolic dysfunction, chronic smoker with recent diagnosis of small cell carcinoma of the lung and adenocarcinoma of the lung within the last 2 months with plan for possible radiation therapy as an outpatient. Patient present to the ER today after she fell on her back while coming down her trailer after which she started having pain in her back. As baseline patient states she is always very weak and her arms never take any weight and that is the reason for her to get weaker and for her to fall. In the ER on the CT spine she was found to have T10 fracture without retropulsion. Patient also found to have a laceration on the ring finger on the right hand which was sutured in the ER. Examination patient lying comfortably in bed without any nausea, vomiting, headache. On 2 L of oxygen supplementation saturating around 90% and hemodynamically stable. Review of Systems General: Reports: 10 or more systems reviewed and unremarkable except in HPI and below Const: Denies: fever(s), chills, body aches, change in appetite, change in weight, malaise, night sweats, diaphoresis, change in sleep pattern, daytime sleepiness or snoring Eyes: Denies: change in vision, blurry vision, photophobia, eye discomfort or eye discharge ENMT: Denies: throat pain, enlarged tonsils, hoarseness, mouth pain, oral sores, dry mouth, tinnitus, nasal congestion or post nasal drip Card: Denies: chest pain, palpitations, irregular heart rhythm, edema, swelling of feet/ankles, lightheadedness, syncope, pre-syncope, dyspnea on exertion, orthopnea, leg pain with exertion or acrocyanosis Resp: Denies: dyspnea, productive cough, non-productive cough, wheezing, stridor, pain on inspiration, change in phlegm color, hemoptysis or chest congestion GI: Denies: abdominal pain, nausea, vomiting, hematemesis, coffee ground emesis, dysphagia, heartburn, diarrhea, constipation, bloating, GI cramping, change in bowel habits, pain on defecation, hematochezia or melena : Denies: flank pain, dysuria, urinary frequency, urinary urgency, urinary hesitancy, nocturia or hematuria Musc: Denies: neck pain, back pain, extremity pain, joint pain, joint swelling, joint redness, joint stiffness or limited range of motion Neuro: Denies: headache(s), numbness in extremities, weakness in extremities, sensory changes, lack of coordination, difficulty walking, frequent falls, dizziness, vertigo, confusion, Slurred speech present, difficulty communicating thoughts or seizure-like activity Psych: Denies: anxiety, depression, mood swings, panic attacks, hopelessness or irritability Endo: Denies: polyuria, polydipsia, tired all the time, cold intolerance, excessive sweating, flushing or heat intolerance [place]/Lymph: Denies: easy bruising or easy bleeding All/Imm: Denies: tongue swelling, facial swelling or acute wheezing Medications/Allergies Home Medications Medication Instructions Recorded Confirmed Last Taken Type amitriptyline 50 mg tablet 50 mg PO DAILY 02/09/20 04/17/23 04/17/23 History meclizine 25 mg tablet 25 mg PO DAILY PRN Dizziness 02/09/20 04/17/23 03/11/23 History albuterol sulfate 90 mcg/actuation 1 inh inhalation Q6H PRN shortness 02/04/21 04/17/23 03/13/23 05:30 Rx aerosol inhaler of breath or wheezing #18 grams clopidogrel 75 mg tablet (Plavix) 75 mg PO DAILY #90 tabs 10/31/21 04/17/23 04/17/23 Rx nitroglycerin 0.4 mg sublingual 0.4 mg sublingual Q5M PRN Chest 10/31/21 04/17/23 Unknown Rx tablet (Nitrostat) Pain #25 tabs formoterol fumarate 20 mcg/2 mL 2 ml inhalation BID 07/26/22 04/17/23 04/17/23 History solution for nebulization (Perforomist) revefenacin 175 mcg/3 mL solution 175 mcg inhalation DAILY 07/26/22 04/17/23 04/17/23 History for nebulization (Yupelri) metoprolol tartrate 25 mg tablet 25 mg PO DIRECTED #135 tabs 11/09/22 04/17/23 04/17/23 Rx simvastatin 40 mg tablet (Zocor) 40 mg PO DAILY 03/12/23 04/17/23 04/17/23 History alprazolam 1 mg tablet 0.5 mg PO TID 04/17/23 04/17/23 04/16/23 History Allergies Allergy/AdvReac Type Severity Reaction Status Date / Time aspirin Allergy Unknown Unknown Verified 04/17/23 16:55 lisinopril Allergy Unknown unknown Verified 04/17/23 16:55 morphine Allergy Unknown Unknown Verified 04/17/23 16:55 PFSH Acute PFSH: Medical History (Updated 04/17/23 @ 17:18 by Conor Leyva MD) Anxiety Atypical pneumonia CAD (coronary artery disease) Post PCI to LAD in 2013 Ex-smoker GERD (gastroesophageal reflux disease) History of [place] (myocardial infarction) HTN (hypertension) Hyperlipidemia Hypothyroidism Ischemic cardiomyopathy Echocardiogram from 2016 shows an EF of 64% without diastolic dysfunction, moderate TR Left displaced femoral neck fracture Surgical History (Updated 04/17/23 @ 17:02 by Conor Leyva MD) S/P angioplasty with stent S/P appendectomy S/P hysterectomy S/P ORIF (open reduction internal fixation) fracture Family History Other Cancer Hypertension Social History Smoking and tobacco status: former smoker Quit status (tobacco): has quit using tobacco Year quit tobacco: 2013 Former quit date comment: 2ppd x 53years Alcohol intake: never Substance/Drug Use: never Lives independently: Yes Housing: House Marital status: / Vitals/I&O/Wt Last Vital Signs Temp 98.6 F 04/17/23 12:59 Pulse 104 H 04/17/23 16:14 Resp 18 04/17/23 16:14 BP 129/77 04/17/23 16:14 Pulse Ox 90 04/17/23 16:14 O2 Del Method Nasal Cannula 04/17/23 16:14 O2 Flow Rate 2 04/17/23 16:14 Weight last 48 hrs Weight 54.431 kg Physical Exam Narrative: General: No acute distress, AO x3, NC oxygen supplementation HEENT: PERRLA, pupils bilaterally equal and reactive Chest:Bronchial breath sounds b/l occasional rhonchi lower lung [place] with coarse crackles in right upper and lower zone CVS: S1-S2 regular, no murmurs, no tachycardia, no gallops, no rubs Abdomen: Soft, nontender, no organomegaly, bowel sounds present, morbidly obese Neuro: No focal deficits, no facial deformity, AO x3, power 5 x 5 in upper limbs, lower limbs not examined because of pain in the back. Extremity: Laceration in right middle finger and superficial laceration at right plantar aspect OF THE HAND Data 04/17/23 13:29 04/17/23 13:29 A&P Assessment and plan (1) T10 vertebral fracture: Seen on CT spine without retroversion. Orthopedic consulted from the ER. Will await recommendations. For now start on pain control with IV morphine 2 mg every 4 hours as needed, [place] 5 mg every 6 hours as needed. PT. Qualifiers: Encounter type: initial encounter Fracture type: closed (2) Small cell lung cancer, right upper lobe: (3) Non-small cell cancer of right lung: (4) Physical deconditioning: Chronic. (5) Atrial fibrillation: Telemetry. Continue with home dose of metoprolol. Not on anticoagulation given high risk of bleeding. Continue with Plavix. (6) Hypothyroidism: Past history. Does not seem to be on levothyroxine. Check TSH. (7) CAD (coronary artery disease): Qualifiers: Associated angina: without angina Coronary Disease-Associated Artery/Lesion type: [place] artery [place] vs. transplanted heart: [place] heart Qualified Code(s): I25.10 - Atherosclerotic heart disease of [place] coronary artery without angina pectoris (8) Ischemic cardiomyopathy: (9) HTN (hypertension): Qualifiers: Hypertension type: essential hypertension Qualified Code(s): I10 - Essential (primary) hypertension Plan Lung cancer: Diagnosed recently of small cell and adenocarcinoma of the right lung. Follows up with oncology. Plan for radiation therapy. Continue with DuoNebs every 6 hour, budesonide twice daily. Oxygen supplementation keeping saturation over 90%. CAD: Continue with home dose of Plavix, statin. No active chest pain. Last echocardiogram showed EF of 64% with grade 1 diastolic dysfunction. Check A1c, lipid panel. Laceration of the right hand: Sutured in the ER. Start on oral Augmentin empirically for now. Wound care. CODE STATUS: Discussed in detail with the patient. She does not want any kind of chest compressions or life support. DNR/DNI. Would want her son to be making the decisions. Regular diet. Protonix for PUD prophylaxis. Heparin 5000 every 12 hourly for DVT prophylaxis. Discharge planning: Given baseline physical deconditioning, comorbidities and T10 fracture patient would need aggressive physical therapy and pain control. Patient would benefit from SNF placement. She is agreeable. We will alert case management. Attestations Medical Necessity Statement*: Admission for more than 2 midnights for further management and pain control in setting of T10 acute fracture in a patient with a recent diagnosis of lung cancer, physical deconditioning Diagnoses T10 vertebral fracture S22.079A Encounter type: initial encounter Fracture type: closed Small cell lung cancer, right upper lobe C34.11 Non-small cell cancer of right lung C34.91 Physical deconditioning R53.81 Atrial fibrillation I48.91 Hypothyroidism E03.9 CAD (coronary artery disease) I25.10 Associated angina: without angina Coronary Disease-Associated Artery/Lesion type: [place] artery [place] vs. transplanted heart: [place] heart Ischemic cardiomyopathy I25.5 HTN (hypertension) I10 Hypertension type: essential hypertension
[2023-04-17] MEDS: ALPRAZolam 0.5 mg Tablet PO (19:00)
[2023-04-17] MEDS: sodium chloride 0.9% 1,000 ML 50 ML IV (19:00)
[2023-04-17] MEDS: amoxicillin-clav 875-125 mg Tablet 1 TAB PO (19:00)
[2023-04-17] MEDS: HYDROcodone-acetaminophen 5-325 mg Tablet 1 TAB PO (19:00)
[2023-04-17 19:19] LABS: Thyroid Stimulating Hormone 5.85 uIU/mL (0.27-4.20); Vitamin B12 944 pg/mL (232-1245)
[2023-04-17] MEDS: famotidine 20 mg/2 mL INJ IVP (20:27)
[2023-04-17] MEDS: heparin 5,000 unit/mL INJ 1 mL 5000 UNIT SUBCUT (20:27)
[2023-04-17 20:58] LABS: Free T4 Free Thyroxine 1.15 ng/dL (0.82-1.77); T3 Free 2.7 PG/ML (2.0-4.4)
[2023-04-17] MEDS: amitriptyline 25 mg Tablet 50 MG PO (21:16)
[2023-04-17] MEDS: metoprolol tartrate 25 mg Tablet PO (21:16)
[2023-04-18] VITALS (10 sets, daily range): BP systolic 113–149; BP diastolic 69–93; PULSE 86–109; RESP 16–19; TEMP 37.1–37.2; O2SAT 91–98
[2023-04-18 05:13] LABS: Basophils % 0.2 %; Eosinophils # 0.1 10^3/uL (0.0-0.8); Eosinophils % 0.3 %; Hematocrit 35.7 % (37.0-47.0); Hemoglobin 11.5 g/dL (11.5-15.3); Lymphocytes # 8.3 10^3/uL (0.8-4.8); Lymphocytes % 51.8 %; Mean Corpuscular HGB Conc 32.2 g/dL (30.0-36.0); Mean Corpuscular Hemoglobin 30.7 pg (28.0-34.0); Mean Corpuscular Volume 95.5 fl (81-99); Mean Platelet Volume 8.5 fL (7.4-10.4); Monocytes # 0.8 10^3/uL (0.2-0.9); Monocytes % 4.7 %; Neutrophils # 6.85 10^3/uL (1.8-7.7); Neutrophils % 42.6 %; Nucleated Red Blood Cells % 0 %; Platelet Count 190 10^3/cmm (130-400); Red Blood Count 3.74 10^6/uL (4.1-5.3); Red Cell Distribution Width 13.6 % (12.1-15.1); White Blood Count 16.1 10^3/uL (4.0-10.0)
[2023-04-18 05:24] LABS: Estmated Average Glucose 111; Hemoglobin A1C 5.5 % (4.0-6.0)
[2023-04-18 05:34] LABS: Alanine Aminotransferase 14 U/L (0-33); Albumin Level 3.6 g/dL (3.5-5.2); Alkaline Phosphatase 105 U/L (35-105); Aspartate Amino Transferase 20 U/L (0-32); Blood Urea Nitrogen 18 mg/dL (8-23); Calcium 8.2 mg/dL (8.5-10.5); Carbon Dioxide 25 mmol/L (22-29); Chloride 104 mmol/L (98-107); Chol HDL Ratio 2.69 mg/dL (0.0-4.40); Cholesterol 156 mg/dL (0-200); Globulin 2.4 g/dL (1.3-4.6); Glucose 106 mg/dL (65-115); HDL Cholesterol 58 mg/dL (60-100); LDL Cholesterol Calculated 80 mg/dL (50-129); LDL HDL Ratio 1.38 RATIO (0.00-3.22); Magnesium 1.7 mg/dL (1.7-2.3); Osmolality Calculated 284 mOsm/kg (285-295); Phosphorus 3.7 mg/dL (2.5-4.5); Sodium 136 mmol/L (136-145); Total Bilirubin 0.3 mg/dL (0.15-1.2); Triglycerides 90 mg/dL (0-150)
[2023-04-18 05:45] LABS: Slide Review Slide Review Perform
--- NOTE | 2023-04-18 06:35 | PM.CONSULT ---
Providers/Reason For Consult Consulting Physician/Specialty*: Ortho Spine Reason for Consult*: Back Pain Attending Physician: Conor Leyva MD Primary Care Provider: Cris Lobo APN History of Present Illness History of Present Illness Nalini Richardson is a 82 year old female who presented to [facility] [place] complaining of back pain following a fall in her garage. She felt immediate pain localized to her back. She was admitted to the hospitalist team orthopedic spine was consulted for evaluation. She was evaluated in room 264 with no family present. She was complaining of mid back pain with any attempts to move or roll, which causes her sharp stabbing severe pain. This pain has been intense since her fall in the garage. She denied any leg pain. She had a previous left bipolar hemiarthro[place] [address] [place]. The pain in her back is better with rest, worse with any movement. She ranks the pain as 8 out of 10 on the pain scale with constant intermittent spasming pain. Denies any loss of consciousness in the fall. Denies any neck pain denies any hip or leg pain. Review of Systems General: Reports: 10 or more systems reviewed and unremarkable except in HPI and below Const: Denies: fever(s), chills, body aches, change in appetite, change in weight, malaise, night sweats, diaphoresis, change in sleep pattern, daytime sleepiness or snoring Eyes: Denies: change in vision, blurry vision, photophobia, eye discomfort or eye discharge ENMT: Denies: throat pain, enlarged tonsils, hoarseness, mouth pain, oral sores, dry mouth, tinnitus, nasal congestion or post nasal drip Card: Denies: chest pain, palpitations, irregular heart rhythm, edema, swelling of feet/ankles, lightheadedness, syncope, pre-syncope, dyspnea on exertion, orthopnea, leg pain with exertion or acrocyanosis Resp: Denies: dyspnea, productive cough, non-productive cough, wheezing, stridor, pain on inspiration, change in phlegm color, hemoptysis or chest congestion GI: Denies: abdominal pain, nausea, vomiting, hematemesis, coffee ground emesis, dysphagia, heartburn, diarrhea, constipation, bloating, GI cramping, change in bowel habits, pain on defecation, hematochezia or melena : Denies: flank pain, dysuria, urinary frequency, urinary urgency, urinary hesitancy, nocturia or hematuria Musc: Denies: neck pain, back pain, extremity pain, joint pain, joint swelling, joint redness, joint stiffness or limited range of motion Neuro: Denies: headache(s), numbness in extremities, weakness in extremities, sensory changes, lack of coordination, difficulty walking, frequent falls, dizziness, vertigo, confusion, Slurred speech present, difficulty communicating thoughts or seizure-like activity Psych: Denies: anxiety, depression, mood swings, panic attacks, hopelessness or irritability Endo: Denies: polyuria, polydipsia, tired all the time, cold intolerance, excessive sweating, flushing or heat intolerance Volodymyr/Lymph: Denies: easy bruising or easy bleeding All/Imm: Denies: tongue swelling, facial swelling or acute wheezing Medications/Allergies Home Medications Medication Instructions Recorded Confirmed Last Taken Type amitriptyline 50 mg tablet 50 mg PO DAILY 02/09/20 04/17/23 04/17/23 History meclizine 25 mg tablet 25 mg PO DAILY PRN Dizziness 02/09/20 04/17/23 03/11/23 History albuterol sulfate 90 mcg/actuation 1 inh inhalation Q6H PRN shortness 02/04/21 04/17/23 03/13/23 05:30 Rx aerosol inhaler of breath or wheezing #18 grams clopidogrel 75 mg tablet (Plavix) 75 mg PO DAILY #90 tabs 10/31/21 04/17/23 04/17/23 Rx nitroglycerin 0.4 mg sublingual 0.4 mg sublingual Q5M PRN Chest 10/31/21 04/17/23 Unknown Rx tablet (Nitrostat) Pain #25 tabs formoterol fumarate 20 mcg/2 mL 2 ml inhalation BID 07/26/22 04/17/23 04/17/23 History solution for nebulization (Perforomist) revefenacin 175 mcg/3 mL solution 175 mcg inhalation DAILY 07/26/22 04/17/23 04/17/23 History for nebulization (Yupelri) metoprolol tartrate 25 mg tablet 25 mg PO DIRECTED #135 tabs 11/09/22 04/17/23 04/17/23 Rx simvastatin 40 mg tablet (Zocor) 40 mg PO DAILY 03/12/23 04/17/23 04/17/23 History alprazolam 1 mg tablet 0.5 mg PO TID 04/17/23 04/17/23 04/16/23 History Allergies Allergy/AdvReac Type Severity Reaction Status Date / Time aspirin Allergy Unknown Unknown Verified 04/17/23 16:55 lisinopril Allergy Unknown unknown Verified 04/17/23 16:55 morphine Allergy Unknown Unknown Verified 04/17/23 16:55 Current Medications Generic Name Dose Route Start Last Admin Trade Name Freq PRN Reason Stop Dose Admin Hydrocodone Bitart/Acetaminophen 1 tab 04/17/23 18:21 04/17/23 19:00 Hydrocodone-Acetaminophen 5-325 Mg Tablet PO 1 tab Q6H PRN Administration MODERATE PAIN Alprazolam 0.5 mg 04/17/23 18:21 04/17/23 19:00 Alprazolam 0.5 Mg Tablet PO 0.5 mg QID PRN Administration Anxiety Amitriptyline HCl 50 mg 04/17/23 21:00 04/17/23 21:16 Amitriptyline 25 Mg Tablet PO 50 mg BEDTIME MAUDE Administration Amoxicillin/Clavulanate Potassium 1 tab 04/17/23 18:00 04/17/23 19:00 Amoxicillin-Clav 875-125 Mg Tablet PO 04/24/23 17:59 1 tab BID MAUDE Administration Protocol Famotidine 20 mg 04/17/23 20:00 04/17/23 20:27 Famotidine 20 Mg/2 Ml Inj IVP 20 mg Q12H MAUDE Administration Heparin Sodium (Porcine) 5,000 unit 04/17/23 20:00 04/17/23 20:27 Heparin 5,000 Unit/Ml Inj 1 Ml SUBCUT 5,000 unit Q12H MAUDE Administration Sodium Chloride 1,000 mls @ 50 mls/hr 04/17/23 17:30 04/17/23 19:00 Sodium Chloride 0.9% IV 04/18/23 14:29 50 mls/hr .Q20H MAUDE Administration Metoprolol Tartrate 0 mg 04/17/23 21:00 04/17/23 21:16 Metoprolol Tartrate 25 Mg Tablet PO 25 mg BID@0900,2100 MAUDE Administration PFSH Acute PFSH: Medical History Anxiety Atypical pneumonia CAD (coronary artery disease) Post PCI to LAD in 2014 Ex-smoker GERD (gastroesophageal reflux disease) History of NC (myocardial infarction) HTN (hypertension) Hyperlipidemia Hypothyroidism Ischemic cardiomyopathy Echocardiogram from 2016 shows an EF of 64% without diastolic dysfunction, moderate TR Left displaced femoral neck fracture Surgical History S/P angioplasty with stent S/P appendectomy S/P hysterectomy S/P ORIF (open reduction internal fixation) fracture Family History Other Cancer Hypertension Social History Smoking and tobacco status: former smoker Quit status (tobacco): has quit using tobacco Year quit tobacco: 2013 Former quit date comment: 2ppd x 53years Alcohol intake: never Substance/Drug Use: never Lives independently: Yes Housing: House Marital status: / Vitals/I&O/Wt Last Vital Signs Temp 99.0 F 04/18/23 04:00 Pulse 86 04/18/23 04:00 Resp 19 H 04/18/23 04:00 BP 118/75 04/18/23 04:00 Pulse Ox 98 04/18/23 04:00 O2 Del Method Nasal Cannula 04/18/23 04:00 O2 Flow Rate 2 04/17/23 20:00 04/17/23 04/17/23 04/18/23 14:59 22:59 06:59 Intake Total 680 / 680 Output Total 0 / 0 Balance 680 / 680 Weight last 48 hrs Weight 119 lb 14.4 oz Weight 120 lb Physical Exam Narrative: Patient is alert orient x3 has a good general appearance normal mood and affect. Severe palpatory and percussion pain throughout the paraspinous musculature of the thoracic spine. Normal sensation to light touch through all dermatomal layers. Normal sensation light touch down both lower extremities with 4/5 motor strength throughout all motor groups. No palpable pain over the SI joints bilaterally. Negative Santiago and Fabere sign. Negative straight leg raise bilaterally. Skin is clear warm with normal sensation to light touch, calves are supple with no medial thigh tenderness, negative Homans' sign. No palpable lymphadenopathy bilaterally. Reflexes are 2+ and symmetric about the knees and Achilles. No hyperreflexia or clonus. Downgoing Babinski's bilaterally. Dorsalis pedis and posterior tibial pulses are 2+. No palpable edema bilaterally. HENMT: COMMON NORMALS: normocephalic and atraumatic HEAD & SCALP: normocephalic and atraumatic Resp: COMMON NORMALS: normal respiratory effort Cardio: COMMON NORMALS: regular rate and regular rhythm RATE: regular rate RHYTHM: regular rhythm GI: COMMON NORMALS: Soft to palpation and non-tender PALPATION: Yes Soft to palpation : COMMON NORMALS: Yes no CVA tenderness BLADDER/KIDNEY EXAM: Yes no CVA tenderness Back/Pelvis: COMMON NORMALS: no CVA tenderness Psych: COMMON NORMALS: mental status grossly normal and cooperative Data 04/20/23 05:18 04/20/23 05:18 CT Abd/Pel: Radiologist's impression: CT/CT chest abdpel w/*[id number] IMPRESSION: ? 1.? Acute T10, 30% biconcave compression fracture without retropulsion. 2.? No visceral organ injury. 3.? Spiculated nodules RIGHT upper and RIGHT lower lobes have been previously described consistent with malignancy. Not significantly changed in size since the most recent PET/CT of 02/03/2023. 4.? Known LEFT adrenal metastasis. 5.? Indeterminate but suspicious RIGHT hilar lymph node also positive on the PET/CT. 6.? No mesenteric injury or hematoma. 7.? Cholelithiasis. A&P Assessment and plan (1) T10 vertebral fracture: Plan for TLSO brace and f/u in Office in 2 wks. Physical therapy to Mobilize. No Bending, Lifting Or twisting. Qualifiers: Encounter type: initial encounter Fracture type: closed Coding Level of Care Code Acute Code for [facility] Diagnoses T10 vertebral fracture S22.079A Encounter type: initial encounter Fracture type: closed
[2023-04-18] MEDS: HYDROcodone-acetaminophen 5-325 mg Tablet 1 TAB PO (07:48)
[2023-04-18] MEDS: metoprolol tartrate 25 mg Tablet PO ×2 (09:32→20:37)
[2023-04-18] MEDS: atorvastatin 40 mg Tablet 20 MG PO (09:32)
[2023-04-18] MEDS: amoxicillin-clav 875-125 mg Tablet 1 TAB PO ×2 (09:32→17:46)
[2023-04-18] MEDS: clopidogrel 75 mg Tablet PO (09:46)
[2023-04-18] MEDS: heparin 5,000 unit/mL INJ 1 mL 5000 UNIT SUBCUT ×2 (09:47→20:35)
[2023-04-18] MEDS: famotidine 20 mg/2 mL INJ IVP ×2 (10:02→20:34)
--- NOTE | 2023-04-18 14:09 | P.PN_ITS ---
Subjective Subjective: No acute events overnight. Today morning at bedside. Patient sitting up in chair with the SLO brace in place. Worked with physical therapy. Patient states she slept well. Pain is better after application of the brace. Blood work appreciated for stable leukocytosis without neutrophilia, stable hemoglobin, stable CMP with an A1c of 5.5. Vitals/I&O/Wt Last Vital Signs Temp 98.9 F 04/18/23 07:38 Pulse 98 04/18/23 07:46 Resp 16 04/18/23 07:46 BP 135/80 04/18/23 07:38 Pulse Ox 98 04/18/23 07:46 O2 Del Method Nasal Cannula 04/18/23 07:46 O2 Flow Rate 2 04/18/23 08:00 04/17/23 04/18/23 04/18/23 22:59 06:59 14:59 Intake Total 680 / 680 0 / 0 Output Total 0 / 0 Balance 680 / 680 0 / 0 Weight last 48 hrs Weight 54.386 kg Weight 54.431 kg Physical Exam Narrative: General: No acute distress, AO x3, NC oxygen supplementation, T SLO brace in place HEENT: PERRLA, pupils bilaterally equal and reactive Chest:Bronchial breath sounds b/l occasional rhonchi lower lung valentin with coarse crackles in right upper and lower zone CVS: S1-S2 regular, no murmurs, no tachycardia, no gallops, no rubs Abdomen: Soft, nontender, no organomegaly, bowel sounds present, morbidly obese Neuro: No focal deficits, no facial deformity, AO x3, power 5 x 5 in upper limbs, lower limbs not examined because of pain in the back. Extremity: Ring finger on the right hand surgically bandaged without soakage Data 04/18/23 05:02 04/18/23 05:02 A&P Assessment and plan (1) T10 vertebral fracture: Seen on CT spine without retroversion. Appreciate orthopedic recommendation. T SLO brace in place. PT as per orthopedic team. MRI ordered by orthopedic team. For now continue pain control with IV morphine 2 mg every 4 hours as needed, [place] 5 mg every 6 hours as needed. Will discuss with orthopedic team in detail further if patient needs kyphoplasty after MRI or not. If going for kyphoplasty will request for bone biopsy. Qualifiers: Encounter type: initial encounter Fracture type: closed (2) Small cell lung cancer, right upper lobe: (3) Non-small cell cancer of right lung: (4) Physical deconditioning: Chronic. (5) Atrial fibrillation: Telemetry. Rate controlled. Continue with home dose of metoprolol. Not on anticoagulation given high risk of bleeding. Continue with Plavix. (6) Hypothyroidism: Past history. Does not seem to be on levothyroxine. Appreciate TSH, free T3 and free T4. Hold off on any levothyroxine. (7) CAD (coronary artery disease): Qualifiers: Coronary Disease-Associated Artery/Lesion type: [place] artery [place] vs. 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 Follows up with oncology. Plan for radiation therapy. Continue with DuoNebs every 6 hour, budesonide twice daily. Oxygen supplementation keeping saturation over 90%. CAD: Continue with home dose of Plavix, statin. No active chest pain. Last echocardiogram showed EF of 64% with grade 1 diastolic dysfunction. Appreciate A1c, lipid panel. Laceration of the right hand: Sutured in the ER. Continue with oral Augmentin empirically for now. Wound care. CODE STATUS: Discussed in detail with the patient. She does not want any kind of chest compressions or life support. DNR/DNI. Would want her son to be making the decisions. Regular diet. Protonix for PUD prophylaxis. Heparin 5000 every 12 hourly for DVT prophylaxis. Discharge planning: Plan to discharge to SNF. Awaiting orthopedic plan for T10 fracture. Discussed possible need for OR in detail with patient and patient's friend at bedside. Discussed that it would depend on the result of MRI and orthopedic plan after the MRI. Attestations Medical Necessity Statement*: Requires further hospitalization for management of T10 vertebral fracture as orthopedic plan for kyphoplasty is awaited and safe discharge planning is sought Diagnoses T10 vertebral fracture S22.144O Encounter type: initial encounter Fracture type: closed Small cell lung cancer, right upper lobe C34.11 Non-small cell cancer of right lung C34.91 Physical deconditioning R53.81 Atrial fibrillation I48.91 Hypothyroidism E03.9 CAD (coronary artery disease) I25.10 Coronary Disease-Associated Artery/Lesion type: [place] artery [place] vs. transplanted heart: [place] si[place] heart Associated angina: without angina Ischemic cardiomyopathy I25.5 HTN (hypertension) I10 Hypertension type: essential hypertension
[2023-04-18] MEDS: albuterol 2.5 mg/3 mL Neb INHALATION (17:52)
--- NOTE | 2023-04-18 18:36 | MR_ITS ---
WS: [id number] MRI THORACIC SPINE WITHOUT CONTRAST TECHNIQUE: Sagittal T1, T2 and STIR imaging. Axial T2 imaging. Noncontrast imaging obtained. CLINICAL INFORMATION: t10 fracture COMPARISON: None. FINDINGS: Moderate thoracic kyphosis. Again seen is the acute T10 compression fracture with loss of approximate ly 30% vertebral body height. No significant retropulsion. Diffuse edema involving the T10 vertebral body and prevertebral soft tissues. Considering history of metastasis metastatic pathologic compressi on fracture not entirely excluded. Although no focal visualized lesion No other acute appearing compression fractures. No high-grade central canal stenosis. Cord signal is normal. Mild bilateral T10-T11 bony foraminal narrowing. Moderate facet arthropathy in the lower thor acic spine. Partially evaluated spiculated RIGHT lung nodules compatible with known neoplasm MR/MR thoracic spin wo con* [id number] IMPRESSION: 1. Acute compression fracture T10 vertebral body with diffuse edema. No retrop ulsion. Loss of approximately 30% vertebral body height unchanged. 2. Considering history of metastasis pathologic compression not entirely exclu ded although no focal visualized lesion. If kyphoplasty or vertebroplasty perfo rmed, recommend biopsy at that time. 3. Cord signal is normal. 4. Known RIGHT pulmonary neoplasms partially visualized.
--- NOTE | 2023-04-18 18:55 | PC.NURSE ---
Dr. Autumn florezayed patient taking IV morphine with allergy.
[2023-04-18] MEDS: budesonide 0.5 mg/2 mL Neb 0.25 MG INHALATION (20:31)
[2023-04-18] MEDS: ipratropium-albuterol 3 mL Neb INHALATION (20:31)
[2023-04-18] MEDS: amitriptyline 25 mg Tablet 50 MG PO (20:34)
[2023-04-19] VITALS (11 sets, daily range): BP systolic 102–144; BP diastolic 67–85; PULSE 76–113; RESP 16–18; TEMP 36.6–36.9; O2SAT 91–96; BMI 19.3
--- NOTE | 2023-04-19 07:26 | P.PN_ITS ---
Subjective Subjective: Patient resting comfortably. Continues to have mild back pain. She has TLSO brace present. Vitals/I&O/Wt Last Vital Signs Temp 98.5 F 04/19/23 04:00 Pulse 106 H 04/19/23 04:00 Resp 16 04/19/23 04:00 BP 144/85 04/19/23 04:00 Pulse Ox 92 04/19/23 04:00 O2 Del Method Nasal Cannula 04/19/23 04:00 O2 Flow Rate 1 04/19/23 04:00 04/18/23 04/19/23 04/19/23 22:59 06:59 14:59 Intake Total 1000 / 1240 Output Total 400 / 400 Balance 1000 / 1240 -400 / 840 Weight last 48 hrs Weight 119 lb 14.4 oz Weight 120 lb Physical Exam Narrative: She is alert orient x3 has a good general appearance normal mood and affect. TLSO brace is currently on. Tender with palpation in the mid back. Moving all extremities with good strength. Normal sensation light touch in both upper and lower extremities hands and feet are warm with good cap refill. Radial pulses and dorsalis pedis and posterior tibial pulses are palpable. Appears to be firing in all motor groups with good sensation to light touch. HENMT: COMMON NORMALS: normocephalic HEAD & SCALP: normocephalic Resp: COMMON NORMALS: normal respiratory effort Cardio: COMMON NORMALS: regular rate and regular rhythm RATE: regular rate RHYTHM: regular rhythm GI: COMMON NORMALS: Soft to palpation PALPATION: Yes Soft to palpation : COMMON NORMALS: Yes no CVA tenderness BLADDER/KIDNEY EXAM: Yes no CVA tenderness Back/Pelvis: COMMON NORMALS: no CVA tenderness Psych: COMMON NORMALS: mental status grossly normal Urinary Catheter Management: Wright: Cath Placed During This Visit: yes Reason for Continuing Indwelling Catheter: Required Immobilization for Trauma or Surgery or Anesthesia Urinary Catheter Date of Insertion: 04/18/23 Urinary Catheter Time of Insertion: 20:25 Data 04/18/23 05:02 04/18/23 05:02 A&P Assessment and plan (1) T10 vertebral fracture: Continue TLSO brace. No bending lifting or twisting activities. Physical therapy to mobilize. We will see her back in the office in 1 to 2 weeks for follow-up. Continue incentive spirometry for pulmonary toilet. She has SCDs for DVT prophylaxis and will defer to the medical team for further management. More than 50% of the time spent with the patient today involved coordination of care, counseling and discussion of conservative versus surgical treatment options. Total amount of time spent with the patient was 21 minutes. Qualifiers: Encounter type: initial encounter Fracture type: closed Attestations Medical Necessity Statement*: Defer to medical team Coding Level of Care Code Acute Code for [facility] Diagnoses T10 vertebral fracture S22.079A Encounter type: initial encounter Fracture type: closed Time Spent (min) 21
[2023-04-19] MEDS: famotidine 20 mg/2 mL INJ IVP ×2 (08:30→20:28)
[2023-04-19] MEDS: clopidogrel 75 mg Tablet PO (08:45)
[2023-04-19] MEDS: heparin 5,000 unit/mL INJ 1 mL 5000 UNIT SUBCUT ×2 (08:45→20:29)
[2023-04-19] MEDS: amoxicillin-clav 875-125 mg Tablet 1 TAB PO ×2 (08:45→17:13)
[2023-04-19] MEDS: metoprolol tartrate 25 mg Tablet PO ×2 (08:45→20:28)
[2023-04-19] MEDS: atorvastatin 40 mg Tablet 20 MG PO (08:45)
[2023-04-19] MEDS: ipratropium-albuterol 3 mL Neb INHALATION ×3 (09:20→19:52)
[2023-04-19] MEDS: budesonide 0.5 mg/2 mL Neb 0.25 MG INHALATION ×2 (09:20→19:52)
--- NOTE | 2023-04-19 10:40 | PM.PN ---
Subjective Subjective: No acute events overnight. Patient denies any nausea, vomiting, headache. Laying comfortably in bed. On 1 L of oxygen supplementation saturating more than 95%. States pain is there but better controlled. NT SLO brace.. Patient resting comfortably. Continues to have mild back pain. She has TLSO brace present. Vitals reviewed. Heart rate mildly elevated in low 100s. Blood pressure stable. Vitals/I&O/Wt Last Vital Signs Temp 98.1 F 04/19/23 07:45 Pulse 102 H 04/19/23 08:00 Resp 18 04/19/23 08:00 BP 142/82 04/19/23 07:45 Pulse Ox 96 04/19/23 08:00 O2 Del Method Nasal Cannula 04/19/23 08:00 O2 Flow Rate 1 04/19/23 08:00 04/18/23 04/19/23 04/19/23 22:59 06:59 14:59 Intake Total 1000 / 1240 120 / 120 Output Total 400 / 400 Balance 1000 / 1240 -400 / 840 120 / 120 Weight last 48 hrs Weight 54.386 kg Weight 54.386 kg Weight 54.431 kg Physical Exam Narrative: General: No acute distress, AO x3, NC oxygen supplementation, T SLO brace in place HEENT: PERRLA, pupils bilaterally equal and reactive Chest:Bronchial breath sounds b/l occasional rhonchi lower lung valentin with coarse crackles in right upper and lower zone CVS: S1-S2 regular, no murmurs, no tachycardia, no gallops, no rubs Abdomen: Soft, nontender, no organomegaly, bowel sounds present, morbidly obese Neuro: No focal deficits, no facial deformity, AO x3, power 5 x 5 in upper limbs, lower limbs not examined because of pain in the back. Extremity: Ring finger on the right hand surgically bandaged without soakage Urinary Catheter Management: Wright: Cath Placed During This Visit: yes Reason for Continuing Indwelling Catheter: Required Immobilization for Trauma or Surgery or Anesthesia Urinary Catheter Date of Insertion: 04/18/23 Urinary Catheter Time of Insertion: 20:25 Data 04/18/23 05:02 04/18/23 05:02 A&P Assessment and plan (1) T10 vertebral fracture: Recommendations. Appreciate MRI results. As per orthopedics plan to follow-up as an outpatient in 2 weeks to determine further plan of action. Continue with physical therapy. For now continue pain control with IV morphine 2 mg every 4 hours as needed, [place] 5 mg every 6 hours as needed. Qualifiers: Encounter type: initial encounter Fracture type: closed (2) Small cell lung cancer, right upper lobe: (3) Non-small cell cancer of right lung: (4) Physical deconditioning: Chronic. (5) Atrial fibrillation: Telemetry. Change metoprolol dose to 25 mg twice daily. Not on anticoagulation given high risk of bleeding. Continue with Plavix. (6) Hypothyroidism: Past history. Does not seem to be on levothyroxine. Appreciate slightly elevated TSH, with normal free T3 and free T4. Hold off on any levothyroxine. (7) CAD (coronary artery disease): Qualifiers: Coronary Disease-Associated Artery/Lesion type: [place] artery [place] vs. transplanted heart: [place] heart Associated angina: without angina Qualified Code(s): I25.10 - Atherosclerotic heart disease of [place] coronary artery without angina pectoris (8) Ischemic cardiomyopathy: (9) HTN (hypertension): Qualifiers: Hypertension type: essential hypertension Qualified Code(s): I10 - Essential (primary) hypertension Plan Lung cancer: Diagnosed recently of small cell and adenocarcinoma of the right lung. Follows up with oncology. Plan for radiation therapy. Continue with DuoNebs every 6 hour, budesonide twice daily. Oxygen supplementation keeping saturation over 90%. If plan for kyphoplasty patient would benefit from bone biopsy to rule out bony metastasis. CAD: Continue with home dose of Plavix, statin. No active chest pain. Last echocardiogram showed EF of 64% with grade 1 diastolic dysfunction. Appreciate A1c, lipid panel. Laceration of the right hand: Sutured in the ER. Continue with oral Augmentin empirically for now. Wound care. Leukocytosis: Most likely in setting of T12 fracture along with laceration of finger. Patient has remained afebrile, UA negative for any signs of UTI. CT chest abdomen pelvis negative for acute sign of infection. Patient remains on home oxygen. DC Wright. Continue with Augmentin as above. Holding off on escalation of antibiotics. CODE STATUS: Discussed in detail with the patient. She does not want any kind of chest compressions or life support. DNR/DNI. Would want her son to be making the decisions. Regular diet. Protonix for PUD prophylaxis. Heparin 5000 every 12 hourly for DVT prophylaxis. Discharge planning: Patient has been accepted to SNF. Continue IV pain control. Plan to discharge in next 24 hours if able to switch to oral pain medications Attestations Medical Necessity Statement*: Requires further hospitalization for management of T12 fracture while safe discharge planning is sought, pain control Diagnoses T10 vertebral fracture S22.079A Encounter type: initial encounter Fracture type: closed Small cell lung cancer, right upper lobe C34.11 Non-small cell cancer of right lung C34.91 Physical deconditioning R53.81 Atrial fibrillation I48.91 Hypothyroidism E03.9 CAD (coronary artery disease) I25.10 Coronary Disease-Associated Artery/Lesion type: [place] artery [place] vs. transplanted heart: [place] heart Associated angina: without angina Ischemic cardiomyopathy I25.5 HTN (hypertension) I10 Hypertension type: essential hypertension
--- NOTE | 2023-04-19 11:15 | PC.CHAP ---
Pastoral Care Encounter/Spiritual Assessment Type of Contact [] Declined sports team manager visit [] Patient/Family/Request visit [] Outpatient visit [] Follow-up visit [] Physician referral [] Code/Alert [x] Routine visit [] Staff referral [] Actively dying [] Patient sleeping [] Family support [] [] Out of room [] Palliative care [] [x] Receiving care in room [] Pre-surgical visit [] Trauma [] Long length of stay [] ICU visit [] Other: Relational/Emotional Strength [x] Patient feels connected with others/family/visitors/staff [] Distress [] Loneliness/isolation [] Abandonment Spirituality of Patient [x] Person of Capri [] Attends Rastafari of their Capri [x] Believes in Prayer [] Reads Bible or Buddhist materials [] There are Spiritual issues to be addressed [place] Interventions [x] Prayer [x] Active listening [x] Non-anxious presence [x] Spiritual/emotional support [] Crisis/trauma care [x] Spiritual counseling [] Bereavement support [] Provided bereavement packet [] Provided Bible/devotional materials [] Provided toy/stuffed animal, coloring book to patient or family member [] Provided Communion [] Anointing/[place] [] Salvation [x] Completed spiritual assessment [] Other: Impact on Illness or Injury [] Angry [] Fearful [] Anxious [] Often cries [] Exhaustion [] Unable to work [] Unable to attend sikhism [] Unable to walk/stand [] Unable to read [] Unable to drive [] Unable to eat/drink [] Unable to sleep [] Unable to be with family [] Patient intubated [] Other: Summary not sure congestion doctor some changes in meds has a good attitude well go home Time spent with patient 10 mins
[2023-04-19 11:16] LABS: Basophils % 0.3 %; Eosinophils % 0.1 %; Hematocrit 37.1 % (37.0-47.0); Hemoglobin 12.2 g/dL (11.5-15.3); Lymphocytes # 6.3 10^3/uL (0.8-4.8); Lymphocytes % 42.1 %; Mean Corpuscular HGB Conc 32.9 g/dL (30.0-36.0); Mean Corpuscular Hemoglobin 30.6 pg (28.0-34.0); Mean Platelet Volume 8.6 fL (7.4-10.4); Monocytes # 0.6 10^3/uL (0.2-0.9); Monocytes % 4.1 %; Neutrophils # 7.94 10^3/uL (1.8-7.7); Neutrophils % 53.2 %; Nucleated Red Blood Cells % 0 %; Platelet Count 224 10^3/cmm (130-400); Red Blood Count 3.99 10^6/uL (4.1-5.3); Red Cell Distribution Width 13.2 % (12.1-15.1); White Blood Count 14.9 10^3/uL (4.0-10.0)
[2023-04-19] MEDS: amitriptyline 25 mg Tablet 50 MG PO (20:28)
[2023-04-20 02:53] VITALS: PULSE 82; RESP 16; O2SAT 95
[2023-04-20] MEDS: ipratropium-albuterol 3 mL Neb INHALATION ×2 (02:53→07:42)
[2023-04-20 03:27] VITALS: BP 102/74; PULSE 70; RESP 18; TEMP 36.8; O2SAT 92
[2023-04-20 05:30] LABS: Basophils % 0.2 %; Eosinophils % 0.2 %; Hematocrit 33.5 % (37.0-47.0); Lymphocytes # 5.8 10^3/uL (0.8-4.8); Lymphocytes % 44.9 %; Mean Corpuscular HGB Conc 32.8 g/dL (30.0-36.0); Mean Corpuscular Hemoglobin 30.1 pg (28.0-34.0); Mean Corpuscular Volume 91.5 fl (81-99); Mean Platelet Volume 8.6 fL (7.4-10.4); Monocytes # 0.7 10^3/uL (0.2-0.9); Monocytes % 5.4 %; Neutrophils # 6.29 10^3/uL (1.8-7.7); Nucleated Red Blood Cells % 0 %; Platelet Count 191 10^3/cmm (130-400); Red Blood Count 3.66 10^6/uL (4.1-5.3); Red Cell Distribution Width 13.5 % (12.1-15.1); White Blood Count 12.9 10^3/uL (4.0-10.0)
[2023-04-20 05:49] LABS: Alanine Aminotransferase 11 U/L (0-33); Albumin Level 3.5 g/dL (3.5-5.2); Alkaline Phosphatase 95 U/L (35-105); Anion Gap 15.4 (5-19); Aspartate Amino Transferase 16 U/L (0-32); Blood Urea Nitrogen 15 mg/dL (8-23); Calcium 8.6 mg/dL (8.5-10.5); Carbon Dioxide 25 mmol/L (22-29); Chloride 101 mmol/L (98-107); Globulin 2.6 g/dL (1.3-4.6); Glucose 128 mg/dL (65-115); Osmolality Calculated 288 mOsm/kg (285-295); Potassium 3.4 mmol/L (3.5-5.1); Sodium 138 mmol/L (136-145); Total Bilirubin 0.5 mg/dL (0.15-1.2); Total Protein 6.1 g/dL (6.6-8.7)
[2023-04-20 07:23] VITALS: BP 131/78; PULSE 96; RESP 16; TEMP 36.9; O2SAT 93
[2023-04-20] MEDS: budesonide 0.5 mg/2 mL Neb 0.25 MG INHALATION (07:42)
[2023-04-20 07:43] VITALS: PULSE 107; RESP 16; O2SAT 93
[2023-04-20 07:49] VITALS: PULSE 108
[2023-04-20] MEDS: atorvastatin 40 mg Tablet 20 MG PO (08:59)
[2023-04-20] MEDS: amoxicillin-clav 875-125 mg Tablet 1 TAB PO (08:59)
[2023-04-20] MEDS: metoprolol tartrate 25 mg Tablet PO (09:00)
[2023-04-20] MEDS: clopidogrel 75 mg Tablet PO (09:00)
[2023-04-20] MEDS: heparin 5,000 unit/mL INJ 1 mL 5000 UNIT SUBCUT (09:01)
[2023-04-20] MEDS: famotidine 20 mg/2 mL INJ IVP (09:28)
--- NOTE | 2023-04-20 09:29 | P.DS_ITS ---
Discharge Providers Date of Admission: 04/17/23 17:18 Date of Discharge: April 20, 2023 Attending Provider at Admission: Conor Leyva MD Attending Provider at Discharge: Conor Leyva MD Consults: Orthopedic surgery: Dr. Reeves Primary Care Provider: Cris Lobo APN Diagnoses at Discharge Discharge Diagnosis (1) T10 vertebral fracture: Status: Acute Qualifiers: Encounter type: initial encounter Fracture type: closed (2) Small cell lung cancer, right upper lobe: Status: Acute (3) Non-small cell cancer of right lung: Status: Acute (4) Physical deconditioning: Status: Acute (5) Atrial fibrillation: Status: Acute (6) Hypothyroidism: Status: Acute (7) CAD (coronary artery disease): Status: Acute Qualifiers: Associated angina: without angina Coronary Disease-Associated Artery/Lesion type: m[place]grath artery [place] vs. transplanted heart: mcgrath heart Qualified Code(s): I25.10 - Atherosclerotic heart disease of mcgrath coronary artery without angina pectoris Permanent problem details: Post PCI to LAD in 2013 (8) Ischemic cardiomyopathy: Status: Acute Permanent problem details: Echocardiogram from 2016 shows an EF of 64% without diastolic dysfunction, moderate TR (9) HTN (hypertension): Status: Acute Qualifiers: Hypertension type: essential hypertension Qualified Code(s): I10 - Essential (primary) hypertension Reason for Visit Reason for Visit: Fall / Back Injury Hospital Course Hospital Course Nalini Richardson is a 82 year old female with past history of CAD post PCI to LAD, hypertension, hyperlipidemia, hypothyroidism, ischemic cardiopathy with last EF of 64% with diastolic dysfunction, chronic smoker with recent diagnosis of small cell carcinoma of the lung and adenocarcinoma of the lung within the last 2 months with plan for possible radiation therapy as an outpatient. Patient present to the ER today after she fell on her back while coming down her trailer after which she started having pain in her back.? As baseline patient states she is always very weak and her arms never take any weight and that is the reason for her to get weaker and for her to fall. In the ER on the CT spine she was found to have T10 fracture without re tropulsion.? Patient also found to have a laceration on the ring finger on the right hand which was sutured in the ER. Patient went to the hospital for further evaluation and management. Patient did have a laceration on her ring finger at right hand which was sutured in the ER. Orthopedic surgery was consulted. They requested MRI. After reviewing MRI orthopedic surgery advised patient to follow-up as an outpatient in their office in 2 weeks. Safe discharge plan was discussed in detail with patient and caregiver at bedside. They were both agreeable to discharge to SNF for further rehabitation. She has been discharged hemodynamically stable condition to SNF with pain control. Physical Exam Narrative: General: No acute distress, AO x3, NC oxygen supplementation, T SLO brace in place HEENT: PERRLA, pupils bilaterally equal and reactive Chest:Bronchial breath sounds b/l occasional rhonchi lower lung valentin with coarse crackles in right upper and lower zone CVS: S1-S2 regular, no murmurs, no tachycardia, no gallops, no rubs Abdomen: Soft, nontender, no organomegaly, bowel sounds present, morbidly obese Neuro: No focal deficits, no facial deformity, AO x3, power 5 x 5 in upper limbs, lower limbs not examined because of pain in the back. Extremity: Ring finger on the right hand surgically bandaged without soakage Urinary Catheter Management: Wright: Cath Placed During This Visit: yes, but has since been removed by the nurse Reason for Continuing Indwelling Catheter: Decision to DC Catheter Urinary Catheter Date of Insertion: 04/18/23 Urinary Catheter Time of Insertion: 20:25 Date Urinary Catheter Removed: 04/19/23 Time Urinary Catheter Discontinued: 13:00 Discharge Data Studies Completed and Pending Completed Studies During Hospitalization Category Date Time Status CT cervical spin wo con* [id number] Stat Cat Scan 04/17/23 13:[address] chest abdomen pelvis [CT chest abdpel w/*[id number] Cat Scan 04/17/23 13:43 Completed ] Stat CT head wo con* [id number] Stat Cat Scan 04/17/23 13:43 Completed XR hip LT 2-3V wo/w pel* [id number] Stat Exams 04/17/23 14:14 Completed MR thoracic spin wo con* [id number] Routine MRI 04/18/23 18:36 Completed Radiology Impressions Cervical Spine CT 04/17/23 13:43 IMPRESSION: 1. No acute cervical spine fracture. 2. Multilevel facet joint arthritis. 3. Most significant stenosis at C5-6. Chest/Abdomen/Pelvis CT 04/17/23 13:43 IMPRESSION: 1. Acute T10, 30% biconcave compression fracture without retropulsion. 2. No visceral organ injury. 3. Spiculated nodules RIGHT upper and RIGHT lower lobes have been previously described consistent with malignancy. Not significantly changed in size since the most recent PET/CT of 02/03/2023. 4. Known LEFT adrenal metastasis. 5. Indeterminate but suspicious RIGHT hilar lymph node also positive on the PET/CT. 6. No mesenteric injury or hematoma. 7. Cholelithiasis. Head CT 04/17/23 13:43 IMPRESSION: 1. Moderate atrophy and small vessel ischemic disease and lacunar infarcts. 2. No acute intracranial hemorrhage or edema. Hip/Pelvis X-Ray 04/17/23 14:14 IMPRESSION: 1. Intact total left hip prosthesis without change or complication since the last study. Thoracic Spine MRI 04/18/23 18:36 IMPRESSION: 1. Acute compression fracture T10 vertebral body with diffuse edema. No retropulsion. Loss of approximately 30% vertebral body height unchanged. 2. Considering history of metastasis pathologic compression not entirely excluded although no focal visualized lesion. If kyphoplasty or vertebroplasty performed, recommend biopsy at that time. 3. Cord signal is normal. 4. Known RIGHT pulmonary neoplasms partially visualized. Laboratory Results WBC 12.9 10^3/uL (4.0-10.0) H 04/20/23 05:18 RBC 3.66 10^6/uL (4.1-5.3) L 04/20/23 05:18 Hgb 11.0 g/dL (11.5-15.3) L 04/20/23 05:18 Hct 33.5 % (37.0-47.0) L 04/20/23 05:18 MCV 91.5 fl (81-99) 04/20/23 05:18 MCH 30.1 pg (28.0-34.0) 04/20/23 05:18 MCHC 32.8 g/dL (30.0-36.0) 04/20/23 05:18 RDW 13.5 % (12.1-15.1) 04/20/23 05:18 Plt Count 191 10^3/cmm (130-400) 04/20/23 05:18 MPV 8.6 fL (7.4-10.4) 04/20/23 05:18 Neut % (Auto) 49.0 % 04/20/23 05:18 Lymph % (Auto) 44.9 % 04/20/23 05:18 [place] % (Auto) 5.4 % 04/20/23 05:18 Eos % (Auto) 0.2 % 04/20/23 05:18 Baso % (Auto) 0.2 % 04/20/23 05:18 Neut # (Auto) 6.29 10^3/uL (1.8-7.7) 04/20/23 05:18 Lymph # (Auto) 5.8 10^3/uL (0.8-4.8) H 04/20/23 05:18 [place] # (Auto) 0.7 10^3/uL (0.2-0.9) 04/20/23 05:18 Eos # (Auto) 0.0 10^3/uL (0.0-0.8) 04/20/23 05:18 Baso # (Auto) 0.0 10^3/uL (0.0-0.1) 04/20/23 05:18 Nucleated RBC % (auto) 0 % 04/20/23 05:18 Total Counted 100 (0-100) 04/17/23 13:29 Atypical Lymphs % 14.0 % (0-5) H 04/17/23 13:29 Absolute Neutrophils 7.7 10^3/cmm (1.4-6.5) H 04/17/23 13:29 Segmented Neutrophils 46 % 04/17/23 13:29 Abs Segm Neuts (Man) 7.7 10/cmm (1.6-7.1) H 04/17/23 13:29 Band Neutrophils 0.0 % 04/17/23 13:29 Abs Band Neuts (Man) 0.0 10^3/cmm (0.0-1.2) 04/17/23 13:29 Absolute Lymphocytes 8.5 10^3/cmm (1.2-3.4) H 04/17/23 13:29 Lymphocytes (Manual) 37 % 04/17/23 13:29 Monocytes (Manual) 3.0 % 04/17/23 13:29 Absolute Monocytes 0.5 10^3/cmm (0.1-0.6) 04/17/23 13:29 Eosinophils (Manual) 0 % 04/17/23 13:29 Absolute Eosinophils 0.0 10^3/cmm (0.0-0.7) 04/17/23 13:29 Basophils (Manual) 0.0 % 04/17/23 13:29 Absolute Basophils 0.0 10^3/cmm (0.0-0.2) 04/17/23 13:29 Metamyelocytes 0.0 % 04/17/23 13:29 Myelocytes 0.0 % 04/17/23 13:29 Promyelocytes 0.0 % 04/17/23 13:29 Nucleated RBCs # 0.0 /100WBC 04/20/23 05:18 Platelet Estimate Normal (Normal) 04/17/23 13:29 Sodium 138 mmol/L (136-145) 04/20/23 05:18 Potassium 3.4 mmol/L (3.5-5.1) L 04/20/23 05:18 Chloride 101 mmol/L (98-107) 04/20/23 05:18 Carbon Dioxide 25 mmol/L (22-29) 04/20/23 05:18 Anion Gap 15.4 (5-19) 04/20/23 05:18 BUN 15 mg/dL (8-23) 04/20/23 05:18 Creatinine 0.7 mg/dL (0.5-0.9) 04/20/23 05:18 GFR Calculation Not Reportable 04/20/23 05:18 Glucose 128 mg/dL (65-115) H 04/20/23 05:18 Estimat Average Glucose 111 04/18/23 05:02 Hemoglobin A1c 5.5 % (4.0-6.0) 04/18/23 05:02 Calculated Osmolality 288 mOsm/kg (285-295) 04/20/23 05:18 Calcium 8.6 mg/dL (8.5-10.5) 04/20/23 05:18 Phosphorus 3.7 mg/dL (2.5-4.5) 04/18/23 05:02 Magnesium 1.7 mg/dL (1.7-2.3) 04/18/23 05:02 Total Bilirubin 0.5 mg/dL (0.15-1.2) 04/20/23 05:18 AST 16 U/L (0-32) 04/20/23 05:18 ALT 11 U/L (0-33) 04/20/23 05:18 Alkaline Phosphatase 95 U/L (35-105) 04/20/23 05:18 Total Protein 6.1 g/dL (6.6-8.7) L 04/20/23 05:18 Albumin 3.5 g/dL (3.5-5.2) 04/20/23 05:18 Globulin 2.6 g/dL (1.3-4.6) 04/20/23 05:18 Triglycerides 90 mg/dL (0-150) 04/18/23 05:02 Cholesterol 156 mg/dL (0-200) 04/18/23 05:02 LDL Cholesterol, Calc 80 mg/dL (50-129) 04/18/23 05:02 HDL Cholesterol 58 mg/dL (60-100) L 04/18/23 05:02 LDL/HDL Ratio 1.38 RATIO (0.00-3.22) 04/18/23 05:02 Cholesterol/HDL Ratio 2.69 mg/dL (0.0-4.40) 04/18/23 05:02 Vitamin B12 944 pg/mL (232-1245) 04/17/23 13:29 Folate 20.0 ng/mL (4.8-37.3) 04/18/23 05:02 TSH 5.85 uIU/mL (0.27-4.20) H 04/17/23 13:29 Free T4 1.15 ng/dL (0.82-1.77) 04/17/23 13:29 Free T3 2.7 PG/ML (2.0-4.4) 04/17/23 13:29 Urine Color Yellow (Yellow) 04/17/23 14:26 Urine Appearance Clear (CLEAR) 04/17/23 14:26 Urine pH 6.5 (5-7) 04/17/23 14:26 Ur Specific [place] 1.005 (1.005-1.030) 04/17/23 14:26 Urine Protein Trace (Negative) 04/17/23 14:26 Urine Glucose (UA) Norm (Normal) 04/17/23 14:26 Urine Ketones 1+ (Negative) H 04/17/23 14:26 Urine Blood 2+ (Negative) H 04/17/23 14:26 Urine Nitrate Negative (Negative) 04/17/23 14:26 Urine Bilirubin Neg (Negative) 04/17/23 14:26 Urine Urobilinogen Norm mg/dL (Negative) 04/17/23 14:26 Ur Leukocyte Esterase Negative (Negative) 04/17/23 14:26 Urine RBC 5-10 /hpf (0-2) H 04/17/23 14:26 Urine WBC 0-4 /hpf (0-5) H 04/17/23 14:26 Ur Squamous Epith Cells 0-4 /hpf (0-5) H 04/17/23 14:26 Amorphous Sediment Not Reportable 04/17/23 14:26 Urine Bacteria Trace /hpf (NONE) 04/17/23 14:26 Urine Mucus Trace /hpf 04/17/23 14:26 Vitals Last Vital Signs Temp 98.4 F 04/20/23 07:23 Pulse 108 H 04/20/23 07:49 Resp 16 04/20/23 07:43 BP 131/78 04/20/23 07:23 Pulse Ox 93 04/20/23 07:43 O2 Del Method Room Air 04/20/23 07:43 O2 Flow Rate 1 04/20/23 02:53 Discharge Plan Discharge Patient Disposition: Xfer SNF Condition: Stable Prescriptions: New amoxicillin-pot clavulanate 875-125 mg Tablet 1 tab PO BID 4 Days Qty: 8 0RF Continued clopidogrel [Plavix] 75 mg tablet 75 mg PO DAILY Qty: 90 4RF nitroglycerin [Nitrostat] 0.4 mg tablet, sublingual 0.4 mg SUBLINGUAL Q5M PRN (Reason: Chest Pain) Qty: 25 3RF meclizine 25 mg tablet 25 mg PO DAILY PRN (Reason: Dizziness) amitriptyline 50 mg tablet 50 mg PO DAILY formoterol fumarate [Perforomist] 20 mcg/2 mL solution for nebulization 2 ml inhalation BID Yupelri 175 mcg/3 mL solution for nebulization 175 mcg inhalation DAILY albuterol sulfate 90 mcg/actuation HFA aerosol inhaler 1 inh INHALATION Q6H PRN (Reason: shortness of breath or wheezing) Qty: 18 0RF Rx Instructions: send additional refills to PCP metoprolol tartrate 25 mg tablet 25 mg PO DIRECTED Qty: 135 4RF Rx Instructions: 12.5mg (0.5 tab) in AM and 25mg (1 tab) in PM simvastatin [Zocor] 40 mg tablet 40 mg PO DAILY alprazolam 1 mg tablet 0.5 mg PO TID Discharge Orders: Discharge Order (Routine); Ordered 04/20/23 Ordered By: Conor Leyva Referrals: Fish Reeves DO [Physician] - 2 weeks Lobo,KIP Lynch [Primary Care Provider] - 1 week Discharge Diet: Advance as tolerated Discharge Activity: Limit activity as instructed Patient Instructions: Amoxicillin/Clavulanate Potassium (By mouth) (Augmentin, Augmentin..., Vertebral Compression Fracture (DC), Opioid Safety Activity Restrictions/Additional Instructions: Continue Augmentin for 4 more days to finish the course of antibiotics. Sutures from the right finger should be removed in 5 days. If you end up having kyphoplasty bone biopsy should be taken. Thank you for choosing [facility] for your care! The following is a list of instructions, from your provider, to follow upon your discharge to ensure you have the optimal recovery from your recent injury.. Follow-up care is a garcia part of your treatment and safety. Be sure to make and go to all appointments and call your doctor if you are having problems. If you do not already have a follow-up appointment made, call Dr. Reeves's] office in the next 1-3 days to make follow up appointment for [1-2] weeks at [phone]. It is also a good idea to know your test results and keep a list of the medicines you take. Medications will be prescribed for you at your provider's discretion. These medications are to be used as instructed; if they are taken more often that prescribed they will not be refilled early and in most cases will not be refil led at all. > When a refill is needed, you should contact janelle 2-3 business days before your prescription runs out. Medications will NOT be refilled by non destructive evaluation specialist providers after hours! > Many pain medications contain Tylenol (Acetaminophen). Do not consume more than 4,000 mg of Tylenol per day in total with any combination of medications. > Pain medications can cause constipation. Please use an over the counter stool softener as directed, while taking pain medications. Consult your local pharmacist with questions or recommendations on stool softeners. If constipation persists, contact our office or your primary care provider. > While under our care, you are not to receive pain medications or other controlled substances from any other provider unless our office is notified and approves. Any attempts to do so will result in refusal to prescribe any further pain medications and possible dismissal from our practice. ? Walking is essential for the healing process after surgery. We would like you to slowly advance your walking. This should be done on relatively flat clear ground (inside or out) or can be done on a treadmill. R emember this goal does not have to happen all at once, slowly increase your distance and duration. This can be broken into more more than one walk per day as tolerated. Physical Therapy. In the unlikely event this issue arises your provider will direct hospital staff to make the appropriate arrangements. ? No lifting over 5 pounds {a gallon of milk) or bending/twisting until further notice. Each of these activities places an unnecessary amount of stress onto the body and can impede the delicate healing process. > Instead of bending at the waist, keep your back straight and bend at the knees. > Instead of twisting your torso, keep your back straight and turn your entire body with your feet. ? You may sleep in any position which makes you comfortable. Many patie nts find comfort sleeping in a reclining chair. It is not abnormal to have difficulty sleeping for the first several weeks following your surgery. We recommend trying Benadry! or Tylenol PM as directed to help with your sleeping difficulties. Both medications are over the counter and available without prescription. ? NO SMOKING!!! Smoking dramatically increases the probability of developing postoperative wound infections. ? Common complaints after lumbar and/or thoracic spine surgery include, but are not limited to: numbness and/or tingling in the legs, pain around the incision and surrounding tissues, muscle spasms, or stiffness of the middle to low back. Contact our office if these symptoms persist or if an acute change occurs. ? No driving for the first 3-5days, and not while taking narcotics until seen at your follow-up appointment and cleared. There are no restrictions for riding on short trips, however if you take a longer trip, arrangements should be made to make regular stops to get out of the vehicle and stretch . ? While walking and regular approved activities helps control inflammation, there are additional steps you can take to minimize swelling. > Place ice over the surgical site and surrounding tissue for twenty minutes, followed by applying a low/medium heat (heating pad) for an additional twenty minutes every 1-2 hours as needed for painrelief. > You may use of over the counter anti-inflammatory medications (Ibuprofen, Motrin, Aleve, Advil, etc) as directed on the package label. These types of medicines will significantly reduce the amount of discomfort you experience after surgery from swelling. It should be noted that if you have and allergy to any of these medications, or a history of ulcers or kidney disease you should consult you primary care provider prior to starting these medications. Discharge Attestations Time Spent in Discharge Care*: greater than 30 min Specific Discharge Activities: educating patient, educating and/or supporting family/caregiver, discussing with pcp/other providers, discussing with [employer]/social workers/dc planners, documenting/other paperwork and evaluating patient/reviewing data Status at Discharge: Cognitive status at discharge: cognitively intact , Behavioral status at discharge: cooperative , Functional status at discharge: uses cane/walker , Overall status at discharge: patient is progressing back to baseline Quality Metrics Clinical Quality Measures [ No reported AMI, CVA or VTE this stay] Coding Level of Care Code 83707 Total time (in minutes) for Discharge: 50 Diagnoses T10 vertebral fracture S22.079A Encounter type: initial encounter Fracture type: closed Small cell lung cancer, right upper lobe C34.11 Non-small cell cancer of right lung C34.91 Physical deconditioning R53.81 Atrial fibrillation I48.91 Hypothyroidism E03.9 CAD (coronary artery disease) I25.10 Associated angina: without angina Coronary Disease-Associated Artery/Lesion type: [place]ath artery [place] vs. transplanted heart: mcgrath heart Ischemic cardiomyopathy I25.5 HTN (hypertension) I10 Hypertension type: essential hypertension
[2023-04-20 12:36] VITALS: BP 131/78; PULSE 96; RESP 16; TEMP 36.9
== END 2023-04-20 12:35 | disposition skilled nursing facility (03) | DRG 552 ==
LOC: ER 17:10 → MEDSURG 18:13
PROVIDERS: Admitting Provider Student in an Organized Health Care Education/Training Program; Emergency Provider Family Medicine; PCP Nurse Practitioner Family; Visit Provider Student in an Organized Health Care Education/Training Program
DX: S22.070A Wedge compression fracture of T9-T10 vertebra, initial encounter for closed fracture (principal); C34.11 Malignant neoplasm of upper lobe, right bronchus or lung; C79.72 Secondary malignant neoplasm of left adrenal gland; I50.30 Unspecified diastolic (congestive) heart failure; W01.0XXA Fall on same level from slipping, tripping and stumbling without subsequent striking against object, initial encounter; S61.214A Laceration without foreign body of right ring finger without damage to nail, initial encounter; I48.91 Unspecified atrial fibrillation; E03.9 Hypothyroidism, unspecified; I25.10 Atherosclerotic heart disease of native coronary artery without angina pectoris; Z95.5 Presence of coronary angioplasty implant and graft; I25.5 Ischemic cardiomyopathy; I11.0 Hypertensive heart disease with heart failure; Z87.891 Personal history of nicotine dependence; Z79.02 Long term (current) use of antithrombotics/antiplatelets; Z79.51 Long term (current) use of inhaled steroids; F41.9 Anxiety disorder, unspecified; Z87.01 Personal history of pneumonia (recurrent); K21.9 Gastro-esophageal reflux disease without esophagitis; I25.2 Old myocardial infarction; E78.5 Hyperlipidemia, unspecified; Z96.642 Presence of left artificial hip joint
CPT/HCPCS: 36415; 51702; 70450; 71260; 72125; 72146; 73502; 74177; 80053; 80061; 81001; 82607; 82746; 83036; 83735; 84100; 84439; 84443; 84481; 85007; 85025; 90471; 90714; 93005; 94640; 94664; 96372; 97116; 97161; 97166; 97530; 97535; 97760; 99285; A9281; J1644; J3490; J7030; J7613; J7626; L0456; Q9967

== ENCOUNTER → 2023-05-08 13:02 | Outpatient (BNVA) | payer MEDICARE, OTHER, SELFPAY | PROVIDERS: PCP Nurse Practitioner Family; Visit Provider Orthopaedic Surgery | DX: S22.079A Unspecified fracture of T9-T10 vertebra, initial encounter for closed fracture (principal); W19.XXXA Unspecified fall, initial encounter | CPT/HCPCS: 72100; 99204 ==

== ENCOUNTER 2023-06-05 19:33 | Emergency (ER) | payer MEDICARE, OTHER, SELFPAY ==
--- NOTE | 2023-06-05 | XRR_ITS ---
[facility] Final Radiology Report Call: [phone] assistance Online chat: [email or web address] Name: HILARIO BRANDT Age: 82Years F Date: 06/05/2023 SSN: -- : [id number] Study: XR RIBS 3 VIEWS W PA CHEST UNILAT Requesting Physician: AC HEBERT Images: 4 Add?l Studies: Provided Clinical History: Page 1 of 2 PROCEDURE INFORMATION: Exam: XR Left Ribs with PA Chest Exam date and time: 06/05/2023 8:10 PM Age: 82 years old Clinical indication: Injury or trauma; Fall; Rib area, left side; Blunt trauma TECHNIQUE: Imaging protocol: Radiologic exam of the left ribs with PA chest. Views: 3 views COMPARISON: CT chest abdpel w/*[id number] 04/17/2023 2:01 PM FINDINGS: Lungs: There are no infiltrates noted. Pleural spaces: There is a possible small left pleural effusion. There is no pneumothorax noted on the left. On the right, there is a curvilinear lucency which likely represents Mach line, recommend inspiratory expiratory images to rule out pneumothorax on the right. Heart/Mediastinum: The cardiomediastinal silhouette is within normal limits. There is tortuosity of descending aorta. Bones/joints: There are no fractures or dislocations Intraperitoneal space: There is no free intraperitoneal air noted. IMPRESSION: 1. No rib fractures noted. 2. Curvilinear lucency which likely represents a Mach line, recommend inspiratory expiratory images to rule out pneumothorax on the right. 3. These findings were communicated to Ac Hebert JOB SPECIFICATION WRITER at 9:00 p.m. Dictated and Authenticated by: Jake Almanza MD 06/05/2023 9:00 PM Central Time ([place] & [place]) ARIADNE
[2023-06-05 19:37] VITALS: BP 133/87; PULSE 98; RESP 16; TEMP 36.7; O2SAT 96; BMI 17.9
--- NOTE | 2023-06-05 20:03 | ED_ITS ---
HPI - General Adult General: Chief complaint: General Medical Stated complaint: Fell Rib Pain Time Seen by Provider: 06/05/23 20:03 History of Present Illness: 82-year-old female comes in today with some left rib pain. Patient reports that last she had tripped and fell striking her ribs. Patient has had some persistent pain to the ribs since then. Patient does have a history of thoracic fracture and is under the care of Dr. Reeves for that. Patient has a TLSO brace in place. Patient denies any fever or shortness of breath. Associated symptoms: Reports chest pain (Left ribs); Deny dyspnea, nausea, rash or vomiting Review of Systems General: Reports: 10 or more systems reviewed and unremarkable except in HPI and below Const: Denies: fever(s) Card: Reports: chest pain (Left ribs) Resp: Denies: dyspnea or productive cough GI: Denies: nausea or vomiting Musc: Reports: back pain Skin/Breast: Denies: rash PFSH ED PFSH: Medical History Anxiety Atrial fibrillation Atypical pneumonia CAD (coronary artery disease) Post PCI to LAD in 2014 Ex-smoker GERD (gastroesophageal reflux disease) History of DE (myocardial infarction) HTN (hypertension) Hyperlipidemia Hypothyroidism Ischemic cardiomyopathy Echocardiogram from 2016 shows an EF of 64% without diastolic dysfunction, moderate TR Left displaced femoral neck fracture 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, right upper lobe Surgical History S/P angioplasty with stent S/P appendectomy S/P hysterectomy S/P ORIF (open reduction internal fixation) fracture Family History Other Cancer Hypertension Social History Smoking and tobacco status: former smoker Quit status (tobacco): has quit using tobacco Year quit tobacco: 2013 Former quit date comment: 2ppd x 53years Alcohol intake: never Substance/Drug Use: never Lives independently: Yes Housing: House Marital status: / Physical Exam Const: COMMON NORMALS: patient oriented x3 Neck/C-Spine: COMMON NORMALS: full ROM Chest: CHEST: Yes tenderness (Mild tenderness, no crepitus left lateral ribs) Resp: COMMON NORMALS: normal respiratory effort and clear to auscultation bilaterally AUSCULTATION: clear to auscultation bilaterally Cardio: COMMON NORMALS: regular rate and regular rhythm RATE: regular rate RHYTHM: regular rhythm GI: COMMON NORMALS: Soft to palpation and non-tender PALPATION: Yes Soft to palpation Back/Pelvis: COMMON NORMALS: thoracic and lumbar spine normal to inspection Extremity: COMMON NORMALS: full ROM Neuro: COMMON NORMALS: patient oriented x3 Skin: COMMON NORMALS: turgor normal GENERAL SKIN EXAM: turgor normal Course Vital Signs: Vital signs: Vital Signs Temperature 98.0 F 06/05/23 19:37 Pulse Rate 98 06/05/23 19:37 Respiratory Rate 16 06/05/23 19:37 Blood Pressure 133/87 06/05/23 19:37 Pulse Oximetry 96 06/05/23 19:37 Oxygen Delivery Me thod Room Air 06/05/23 19:37 MDM - General Adult Medical Decision Making Patient comes in today for evaluation of injury sustained during a fall last . Patient was concerned for a fracture of the rib and wanted to be evaluated to make sure there was not. Patient appears nontoxic. Patient reports no difficulty breathing or high fever. Lungs are clear to auscultation. Mild tenderness is noted to the lateral left ribs without crepitus or subcu emphysema. Differential diagnosis includes pneumothorax, rib fracture, contusion, pneumonia. Chest x-ray showed no obvious fractures. Patient does have some mild atelectasis in the left lower lung with some blunting of the angle. I suspect this may be from guarding due to the pain in the rib area. Recommended deep breath and cough least every 2 hours with splinting of the ribs. Recommend use of medications such as acetaminophen for pain. Strongly recommend monitoring for signs of infection like fever, increasing chest pain or shortness of breath. Patient and family both reported understanding and agreed to plan. Discharge Plan Discharge Patient Disposition: Home Clinical Impression: Contusion of rib on left side Qualifiers: Encounter type: initial encounter Qualified Code(s): S20.212A - Contusion of left front wall of thorax, initial encounter Condition: Stable Prescriptions: No Action clopidogrel [Plavix] 75 mg tablet 75 mg PO DAILY Qty: 90 4RF nitroglycerin [Nitrostat] 0.4 mg tablet, sublingual 0.4 mg SUBLINGUAL Q5M PRN (Reason: Chest Pain) Qty: 25 3RF meclizine 25 mg tablet 25 mg PO DAILY PRN (Reason: Dizziness) amitriptyline 50 mg tablet 50 mg PO DAILY formoterol fumarate [Perforomist] 20 mcg/2 mL solution for nebulization 2 ml inhalation BID Yupelri 175 mcg/3 mL solution for nebulization 175 mcg inhalation DAILY albuterol sulfate 90 mcg/actuation HFA aerosol inhaler 1 inh INHALATION Q6H PRN (Reason: shortness of breath or wheezing) Qty: 18 0RF Rx Instructions: send additional refills to PCP metoprolol tartrate 25 mg tablet 25 mg PO DIRECTED Qty: 135 4RF Rx Instructions: 12.5mg (0.5 tab) in AM and 25mg (1 tab) in PM simvastatin [Zocor] 40 mg tablet 40 mg PO DAILY alprazolam 1 mg tablet 0.5 mg PO TID Discharge Orders: Discharge ED (Routine); Ordered 06/05/23 Ordered By: Ac Spencer Referrals: Cris Lobo APN [Primary Care Provider] - Discharge Diet: Usual diet Discharge Activity: Increase activity as tolerated Patient Instructions: Rib Contusion (ED) Activity Restrictions/Additional Instructions: Activity as tolerated. Be sure to splint the ribs take a deep breath and cough every 2 hours to help with aeration of the lung valentin. Use acetaminophen or prescribed pain relievers as needed for discomfort. Use ice or heat for further pain relief. Follow-up with primary care. Return to ED for worsening symptoms such as severe shortness of breath, severe chest pain, or fever greater than 100.4. Coding Level of Care Code ED Studio Sales Associate for Lakesha Barry
--- NOTE | 2023-06-05 21:01 | W.ED.GENADLT ---
HPI - General Adult General: Chief complaint: General Medical Stated complaint: Fell Rib Pain Time Seen by Provider: 06/05/23 20:03 History of Present Illness: 82-year-old female comes in today with concerns of injury to the [facility] ED PFSH: Medical History Anxiety Atrial fibrillation Atypical pneumonia CAD (coronary artery disease) Post PCI to LAD in 2014 Ex-smoker GERD (gastroesophageal reflux disease) History of ME (myocardial infarction) HTN (hypertension) Hyperlipidemia Hypothyroidism Ischemic cardiomyopathy Echocardiogram from 2016 shows an EF of 64% without diastolic dysfunction, moderate TR Left displaced femoral neck fracture 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, right upper lobe Surgical History S/P angioplasty with stent S/P appendectomy S/P hysterectomy S/P ORIF (open reduction internal fixation) fracture Family History Other Cancer Hypertension Social History Smoking and tobacco status: former smoker Quit status (tobacco): has quit using tobacco Year quit tobacco: 2013 Former quit date comment: 2ppd x 53years Alcohol intake: never Substance/Drug Use: never Lives independently: Yes Housing: House Marital status: / Course Vital Signs: Vital signs: Vital Signs Temperature 98.0 F 06/05/23 19:37 Pulse Rate 98 06/05/23 19:37 Respiratory Rate 16 06/05/23 19:37 Blood Pressure 133/87 06/05/23 19:37 Pulse Oximetry 96 06/05/23 19:37 Oxygen Delivery Me thod Room Air 06/05/23 19:37 Discharge Plan Discharge Patient Disposition: Home Clinical Impression: Contusion of rib on left side Qualifiers: Encounter type: initial encounter Qualified Code(s): S20.212A - Contusion of left front wall of thorax, initial encounter Condition: Stable Prescriptions: No Action clopidogrel [Plavix] 75 mg tablet 75 mg PO DAILY Qty: 90 4RF nitroglycerin [Nitrostat] 0.4 mg tablet, sublingual 0.4 mg SUBLINGUAL Q5M PRN (Reason: Chest Pain) Qty: 25 3RF meclizine 25 mg tablet 25 mg PO DAILY PRN (Reason: Dizziness) amitriptyline 50 mg tablet 50 mg PO DAILY formoterol fumarate [Perforomist] 20 mcg/2 mL solution for nebulization 2 ml inhalation BID Yupelri 175 mcg/3 mL solution for nebulization 175 mcg inhalation DAILY albuterol sulfate 90 mcg/actuation HFA aerosol inhaler 1 inh INHALATION Q6H PRN (Reason: shortness of breath or wheezing) Qty: 18 0RF Rx Instructions: send additional refills to PCP metoprolol tartrate 25 mg tablet 25 mg PO DIRECTED Qty: 135 4RF Rx Instructions: 12.5mg (0.5 tab) in AM and 25mg (1 tab) in PM simvastatin [Zocor] 40 mg tablet 40 mg PO DAILY alprazolam 1 mg tablet 0.5 mg PO TID Discharge Orders: Discharge ED (Routine); Ordered 06/05/23 Ordered By: Ac Spencer Referrals: Cris Lobo APN [Primary Care Provider] - Discharge Diet: Usual diet Discharge Activity: Increase activity as tolerated Patient Instructions: Rib Contusion (ED) Activity Restrictions/Additional Instructions: Activity as tolerated. Be sure to splint the ribs take a deep breath and cough every 2 hours to help with aeration of the lung valentin. Use acetaminophen or prescribed pain relievers as needed for discomfort. Use ice or heat for further pain relief. Follow-up with primary care. Return to ED for worsening symptoms such as severe shortness of breath, severe chest pain, or fever greater than 100.4. Coding Level of Care Code ED Fuel Truck Driver for Lakesha Barry
== END 2023-06-05 20:58 | disposition home or self-care (01) ==
PROVIDERS: Emergency Provider Nurse Practitioner Family; PCP Nurse Practitioner Family
DX: S20.212A Contusion of left front wall of thorax, initial encounter (principal); Z79.02 Long term (current) use of antithrombotics/antiplatelets; Z87.891 Personal history of nicotine dependence; I25.10 Atherosclerotic heart disease of native coronary artery without angina pectoris; I25.2 Old myocardial infarction; I10 Essential (primary) hypertension; E78.5 Hyperlipidemia, unspecified; Z85.118 Personal history of other malignant neoplasm of bronchus and lung; W01.0XXA Fall on same level from slipping, tripping and stumbling without subsequent striking against object, initial encounter
CPT/HCPCS: 71101; 99283

== ENCOUNTER 2023-06-26 13:44 | Emergency (ER) | payer MEDICARE, OTHER, SELFPAY ==
[2023-06-26 13:47] VITALS: BP 132/92; PULSE 88; RESP 18; TEMP 36.8; O2SAT 91
[2023-06-26 14:08] LABS: Basophils % 0.2 %; Eosinophils % 0.2 %; Hematocrit 38.7 % (36-47); Lymphocytes # 6.8 10^3/uL (0.8-4.8); Mean Corpuscular HGB Conc 32.3 g/dL (30-55); Mean Corpuscular Hemoglobin 30.6 pg (27-33); Mean Corpuscular Volume 94.6 fl (85-98); Mean Platelet Volume 8.3 fL (7.4-10.4); Monocytes # 0.5 10^3/uL (0.2-0.9); Monocytes % 4.3 %; Neutrophils # 4.91 10^3/uL (1.8-7.7); Neutrophils % 40.1 %; Nucleated Red Blood Cells % 0 %; Platelet Count 258 10^3/cmm (157-399); Red Blood Count 4.09 10^6/uL (3.85-5.65); Red Cell Distribution Width 13.5 % (12.1-15.1); White Blood Count 12.28 10^3/uL (3.29-11.43)
[2023-06-26 14:16] VITALS: BP 129/86; PULSE 84; RESP 16; O2SAT 97
--- NOTE | 2023-06-26 14:21 | W.ED.BACK ---
HPI - Back Pain/Injury General: Chief Complaint: Back Pain/Injury Stated Complaint: Back/ Flank pain /fall x 1 week ago Time Seen by Provider: 06/26/23 13:47 Source: patient and family Mode of arrival: wheelchair History of Present Illness: 82-year-old female presents emergency room complaining of back pain and inability to care for herself. She was seen in late March in the emergency room after a fall had a compression fracture was admitted she was discharged to the retirement 3 days later. She is at the retirement for several weeks she did not like it there and her family took her home since she is got home she is continue to have pain in his debility to the point she is not able to care for self or family's not able to care for her. She has been following with Dr. Reeves was supposed to see him today but the family felt they could not get her to the appointment so they called an ambulance that brought to the emergency room they had called the office and presented here stating they understood that they would be admitted to the hospital to further evaluate her back pain. They are aware of her cancer but not did not seem to understand or recall having discussed the compression fracture. She had another fall approximately a week ago which exacerbated her pre-existing pain. Family is very concerned because he states she is not able to get up and move around take care of her 7 anyway has not been able to eat or drink consistently. MD elicited complaint: back pain Pertinent past history: prior back pain and recent trauma Onset (ago): week(s) Timing: constant Severity: moderate Similar Symptoms Previously: Yes Quality: sharp Location: thoracic spine Exacerbating factors: none Relieving factors: none Associated symptoms: Reports difficulty walking, fatigue, nausea and weakness; Deny abdominal pain, arthralgias, chills, change in bowel habits, dysuria, fecal incontinence, fever(s), hematuria, myalgias, numbness, syncope, tingling/numbness/burning, urinary frequency, urinary urgency or vomiting Review of Systems Const: Reports: fatigue; Denies: fever(s) or chills Card: Denies: syncope Resp: Denies: dyspnea, productive cough or non-productive cough GI: Reports: nausea; Denies: abdominal pain, vomiting, fecal incontinence or change in bowel habits : Denies: dysuria, urinary frequency, urinary urgency or hematuria Musc: Reports: back pain Skin/Breast: Denies: rash or pruritus Neuro: Reports: difficulty walking PFSH ED PFSH: Medical History Anxiety Atrial fibrillation Atypical pneumonia CAD (coronary artery disease) Post PCI to LAD in 2013 Ex-smoker GERD (gastroesophageal reflux disease) History of PR (myocardial infarction) HTN (hypertension) Hyperlipidemia Hypothyroidism Ischemic cardiomyopathy Echocardiogram from 2016 shows an EF of 64% without diastolic dysfunction, moderate TR Left displaced femoral neck fracture 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, right upper lobe Surgical History S/P angioplasty with stent S/P appendectomy S/P hysterectomy S/P ORIF (open reduction internal fixation) fracture Family History Other Cancer Hypertension Social History Smoking and tobacco status: former smoker Quit status (tobacco): has quit using tobacco Year quit tobacco: 2013 Former quit date comment: 2ppd x 53years Alcohol intake: never Substance/Drug Use: never Lives independently: Yes Housing: House Marital status: / Course Vital Signs: Vital signs: Vital Signs Temperature 98.2 F 06/26/23 13:47 Pulse Rate 84 06/26/23 14:16 Respiratory Rate 16 06/26/23 16:41 Blood Pressure 129/86 06/26/23 14:16 Pulse Oximetry 100 06/26/23 16:41 Oxygen Delivery Me thod Room Air 06/26/23 14:16 MDM - Back Pain/Injury Medical Decision Making Called and discussed patient Dr. Mabry. At this point she is not really able to tolerate any kind of treatment has not been receiving any. She was unable to even make it to the orthopedic appointment. Palliative radiation for the compression fracture would be one option but not sure she will be able to tolerate transportation needed. Patient is adamant about not returning to the retirement. Long discussion with the family and they made comments during discussion of wanting to evaluate what the cause of the back pain was and have something definitive done. Discussed and that we are aware of the cause of the back pain is a compression fracture from the metastasis from her tumor. We also discussed possible treatment options however there are not many she would not tolerate chemo at this point with Dr. Mabry also concurs with. She is unlikely to tolerate radiation just from the perspective of physically being able to get her to the radiation suite given they could not get her to a physician's appointment without using the ambulance and coming to the ER instead. They are concerned about her eating or drinking. Discussed with some there may not be much we can do to reverse this given her overall condition and frail state of health and inability to tolerate treatments. Recommend returning to the retirement and enrolling in hospice. Initially there was some opposition to this idea but after a time they decided that so they wish to proceed. Hospice consult in the department they may were able to make arrangements for her to go directly to [facility]. Will write for 12 and half micrograms fentanyl patch Percocet for breakthrough pain as well as promethazine we will formally enroll her in hospice tomorrow. Medical Records I reviewed the patient's medical records. Labs I reviewed the patient's lab results. 06/26/23 13:55 06/26/23 13:55 Laboratory Results WBC 12.28 10^3/uL (3.29-11.43) H 06/26/23 13:55 RBC 4.09 10^6/uL (3.85-5.65) 06/26/23 13:55 Hgb 12.50 g/dL (11.27-16.99) 06/26/23 13:55 Hct 38.7 % (36-47) 06/26/23 13:55 MCV 94.6 fl (85-98) 06/26/23 13:55 MCH 30.6 pg (27-33) 06/26/23 13:55 MCHC 32.3 g/dL (30-55) 06/26/23 13:55 RDW 13.5 % (12.1-15.1) 06/26/23 13:55 Plt Count 258 10^3/cmm (157-399) 06/26/23 13:55 MPV 8.3 fL (7.4-10.4) 06/26/23 13:55 Neut % (Auto) 40.1 % 06/26/23 13:55 Lymph % (Auto) 55.0 % 06/26/23 13:55 Cannon % (Auto) 4.3 % 06/26/23 13:55 Eos % (Auto) 0.2 % 06/26/23 13:55 Baso % (Auto) 0.2 % 06/26/23 13:55 Neut # (Auto) 4.91 10^3/uL (1.8-7.7) 06/26/23 13:55 Lymph # (Auto) 6.8 10^3/uL (0.8-4.8) H 06/26/23 13:55 Cannon # (Auto) 0.5 10^3/uL (0.2-0.9) 06/26/23 13:55 Eos # (Auto) 0.0 10^3/uL (0.0-0.8) 06/26/23 13:55 Baso # (Auto) 0.0 10^3/uL (0.0-0.1) 06/26/23 13:55 Nucleated RBC % (auto) 0 % 06/26/23 13:55 Nucleated RBCs # 0.0 /100WBC 06/26/23 13:55 Sodium 139 mmol/L (136-145) 06/26/23 13:55 Potassium 3.9 mmol/L (3.5-5.1) 06/26/23 13:55 Chloride 100 mmol/L (98-107) 06/26/23 13:55 Carbon Dioxide 31 mmol/L (22-29) H 06/26/23 13:55 Anion Gap 11.9 (5-19) 06/26/23 13:55 BUN 31 mg/dL (8-23) H 06/26/23 13:55 Creatinine 0.7 mg/dL (0.5-0.9) 06/26/23 13:55 GFR Calculation Not Reportable 06/26/23 13:55 Glucose 127 mg/dL (65-115) H 06/26/23 13:55 Calculated Osmolality 296 mOsm/kg (285-295) H 06/26/23 13:55 Calcium 9.3 mg/dL (8.5-10.5) 06/26/23 13:55 Total Bilirubin 0.4 mg/dL (0.15-1.2) 06/26/23 13:55 AST 21 U/L (0-32) 06/26/23 13:55 ALT 14 U/L (0-33) 06/26/23 13:55 Alkaline Phosphatase 89 U/L (35-105) 06/26/23 13:55 Total Protein 6.5 g/dL (6.6-8.7) L 06/26/23 13:55 Albumin 3.9 g/dL (3.5-5.2) 06/26/23 13:55 Globulin 2.6 g/dL (1.3-4.6) 06/26/23 13:55 Discharge Plan Discharge Patient Disposition: Home Clinical Impression: Closed compression fracture of thoracic vertebra, Lung cancer metastatic to bone Condition: Stable Prescriptions: New Percocet 5-325 mg tablet 1 tab PO Q6H PRN (Reason: pain) Qty: 20 0RF promethazine 25 mg tablet 25 mg PO Q6H PRN (Reason: nausea and vomiting) Qty: 20 0RF fentanyl 12 mcg/hr patch 72 hour 1 patch transdermal Q72H Qty: 5 0RF No Action clopidogrel [Plavix] 75 mg tablet 75 mg PO DAILY Qty: 90 4RF nitroglycerin [Nitrostat] 0.4 mg tablet, sublingual 0.4 mg SUBLINGUAL Q5M PRN (Reason: Chest Pain) Qty: 25 3RF meclizine 25 mg tablet 25 mg PO DAILY PRN (Reason: Dizziness) amitriptyline 50 mg tablet 50 mg PO DAILY formoterol fumarate [Perforomist] 20 mcg/2 mL solution for nebulization 2 ml inhalation BID Yupelri 175 mcg/3 mL solution for nebulization 175 mcg inhalation DAILY albuterol sulfate 90 mcg/actuation HFA aerosol inhaler 1 inh INHALATION Q6H PRN (Reason: shortness of breath or wheezing) Qty: 18 0RF Rx Instructions: send additional refills to PCP metoprolol tartrate 25 mg tablet 25 mg PO DIRECTED Qty: 135 4RF Rx Instructions: 12.5mg (0.5 tab) in AM and 25mg (1 tab) in PM simvastatin [Zocor] 40 mg tablet 40 mg PO DAILY Qty: 90 3RF alprazolam 1 mg tablet 0.5 mg PO TID Discharge Orders: Discharge ED (Routine); Ordered 06/26/23 Ordered By: Hang Del Rosario Referrals: Lobo,KIP Lynch [Primary Care Provider] - Discharge Diet: Usual diet Patient Instructions: Opioid Safety, Pain Management Activity Restrictions/Additional Instructions: You are seen today for complaint of pain in your back. This is related to known compression fracture and cancer. You are given a fentanyl patch for pain and Percocet for breakthrough promethazine for nausea and vomiting hospice will enroll you in the hospice program tomorrow. You will be discharged from here to [facility]. Coding Level of Care Code ED Principal Network Engineer for Lakesha Barry
[2023-06-26 14:46] LABS: Alanine Aminotransferase 14 U/L (0-33); Albumin Level 3.9 g/dL (3.5-5.2); Alkaline Phosphatase 89 U/L (35-105); Anion Gap 11.9 (5-19); Aspartate Amino Transferase 21 U/L (0-32); Blood Urea Nitrogen 31 mg/dL (8-23); Calcium 9.3 mg/dL (8.5-10.5); Carbon Dioxide 31 mmol/L (22-29); Chloride 100 mmol/L (98-107); Globulin 2.6 g/dL (1.3-4.6); Glucose 127 mg/dL (65-115); Osmolality Calculated 296 mOsm/kg (285-295); Potassium 3.9 mmol/L (3.5-5.1); Sodium 139 mmol/L (136-145); Total Bilirubin 0.4 mg/dL (0.15-1.2); Total Protein 6.5 g/dL (6.6-8.7)
[2023-06-26] MEDS: sodium chloride 0.9% 500 ML 999 ML IV (15:27)
--- NOTE | 2023-06-26 16:09 | PC.PHAR ---
pts son states pt was discharged from the [facility] and has been at home with him-pts son states ems took pictures of meds before bringing the pt-priti espinosa in the [place] called em[facility] to send her pictures of the pts meds but pt was discharged before ems sent pictures to priti the [facility]
[2023-06-26 16:41] VITALS: RESP 16; O2SAT 100
[2023-06-26] MEDS: oxyCODONE-APAP 5-325 mg Tablet 1 TAB PO (16:41)
== END 2023-06-26 18:48 | disposition home or self-care (01) ==
PROVIDERS: Family Medicine; Emergency Provider Physician Assistant; PCP Nurse Practitioner Family
DX: S22.000A Wedge compression fracture of unspecified thoracic vertebra, initial encounter for closed fracture (principal); C34.11 Malignant neoplasm of upper lobe, right bronchus or lung; C79.51 Secondary malignant neoplasm of bone; Z79.02 Long term (current) use of antithrombotics/antiplatelets; Z87.891 Personal history of nicotine dependence; I25.10 Atherosclerotic heart disease of native coronary artery without angina pectoris; I25.2 Old myocardial infarction; I10 Essential (primary) hypertension; E78.5 Hyperlipidemia, unspecified; W19.XXXA Unspecified fall, initial encounter
CPT/HCPCS: 36415; 80053; 85025; 96360; 99285; J7040